=== PATIENT | male | born 1975 | race American Indian/Alaskan Native ===

== ENCOUNTER 2016-04-15 12:19 | Emergency (ER) | payer SELFPAY ==
[2016-04-15] MEDS ORDERED: Haloperidol INJ IV/IM* 5 MG/ML AMP IM ONE (12:24)
[2016-04-15] MEDS ORDERED: LORazepam INJ* 2 MG/ML 1 ML VIAL ONE (12:24)
[2016-04-15] MEDS ORDERED: Haloperidol INJ IV/IM* 5 MG/ML AMP ONE (12:24)
[2016-04-15] MEDS ORDERED: LORazepam INJ* 2 MG/ML 1 ML VIAL IM ONE ×2 (12:25→12:28)
[2016-04-15] MEDS ORDERED: NS 0.9% 1000 ML* 1,000 ML IV ONE (12:42)
[2016-04-15 13:30] LABS: Hematocrit 46 % (42-52); Hemoglobin 15.4 g/dl (14.0-18.0); Mean Corpuscular HGB Conc 34 g/dl (31-36); Mean Corpuscular Hemoglobin 30 pg (27-31); Mean Corpuscular Volume 89 fL (80-94); Red Blood Count 5.14 10^6/ul (4.0-5.4); Red Cell Distribution Width 13 % (10.5-15)
[2016-04-15 13:31] LABS: Add Diff/Slide Review? Manual Diff Added; Comments Flag Yes
[2016-04-15 13:45] LABS: ALT 19 U/L (7-52); AST 21 U/L (13-39); Albumin 4.4 g/dL (3.2-5.2); Alkaline Phosphatase 96 U/L (34-104); Anion Gap 3 mmol/L (2-11); BUN/Creatinine Ratio 12.3 (8-20); Blood Urea Nitrogen 10 mg/dL (6-24); CO2 Carbon Dioxide 25 mmol/L (22-32); Calcium 9.1 mg/dL (8.6-10.3); Chloride 109 mmol/L (101-111); EGFR African American 135.7 (>60); EGFR Non-African American 105.5 (>60); Globulin 2.6 g/dL (2-4); Glucose 105 mg/dL (70-100); Potassium 3.1 mmol/L (3.5-5.0); Sodium 137 mmol/L (133-145)
[2016-04-15] MEDS ORDERED: diPHENhydraMINE IV* 25 MG in NS 0.9% 50 ML* 50 ML IVPB ONE (13:53)
[2016-04-15] MEDS ORDERED: diPHENhydraMINE IV* 50 MG/ML 1 ml VIAL (BENADRYL) ONE (13:53)
[2016-04-15 14:00] LABS: Acetaminophen < 15 mcg/mL; Alcohol 248 mg/dL (<10); Salicylate < 2.50 mg/dL (<30)
--- NOTE | 2016-04-15 14:01 | RAD ---
HISTORY: Confusion, hallucination COMPARISONS: February 13, 2010 TECHNIQUE: Multiple contiguous axial CT scans were obtained of the head without intravenous contrast. FINDINGS: The study is limited by patient motion artifact. HEMORRHAGE/INFARCT: There is no hemorrhage or acute infarct. MASSES/SHIFT: There is no mass or shift. EXTRA-AXIAL SPACES: There are no extra-axial fluid collections. SULCI AND VENTRICLES: The sulci and ventricles are normal in size and position for the patient's stated age. CEREBRUM: There are no focal parenchymal abnormalities. BRAINSTEM: There are no focal parenchymal abnormalities. CEREBELLUM: There are no focal parenchymal abnormalities. VESSELS: The vessels are grossly normal. PARANASAL SINUSES: The paranasal sinuses are clear. ORBITS: The orbits are unremarkable. BONES AND SOFT TISSUE: No bone or soft tissue abnormalities are noted. OTHER: None IMPRESSION: NO ACUTE INTRACRANIAL PATHOLOGY.
[2016-04-15 14:09] LABS: Neutrophil % 61 % (38-83); RBC Morphology Normal (Normal); Reactive Lymph % 4 % (0-6)
[2016-04-15 14:10] LABS: TSH (Thyroid Stimulating Horm) 1.26 mcIU/mL (0.34-5.60)
[2016-04-15 14:35] LABS: White Blood Count 8.2 10^3/ul (3.5-10.8)
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
[2016-04-15] MEDS ORDERED: Potassium Chloride LIQUID* 20 MEQ PACKET PO ONE (18:39)
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
[2016-04-16] MEDS ORDERED: QUEtiapine XR TAB* 50 MG PO ONE (00:29)
[2016-04-16] MEDS ORDERED: QUEtiapine XR TAB* 50 MG ONE (00:43)
[2016-04-16 07:26] VITALS: BP 105/67
--- NOTE | 2016-05-09 04:00 | UC ---
Progress - Progress Note Progress Note: Signed out at [address] Camille Fernandez Pt continued to be stable the pt is still medically cleared. The pt is still awaiting MHE. The pt will be signed-out to Dr. Ayoub at 24:00. - Consult/PCP Time Called: 22:05 Re-Evaluation - Re-Evaluation First Eval Re-Evaluation Time: 13:45 Change: Improved - Pt given Haldol and Ativan IM initially Upon rturn from CT, pt attempting to pull IV, agitated - will give benadryl ETOH 248 - sober by number at 1500 Comment: pt d/c stable by crisis
== END 2016-04-16 14:30 | disposition home or self-care (01) ==
LOC: ED 12:19
DX: F10.129 Alcohol abuse with intoxication, unspecified (principal); F39 Unspecified mood [affective] disorder; Y90.8 Blood alcohol level of 240 mg/100 ml or more; K21.9 Gastro-esophageal reflux disease without esophagitis; F41.9 Anxiety disorder, unspecified; F32.9 Major depressive disorder, single episode, unspecified
CPT/HCPCS: 36415; 70450; 80053; 80320; 80329; 84443; 85025; 96360; 96372; 99285; A9270-GY; G0480; J1200; J1630; J2060

== ENCOUNTER 2016-07-21 06:40 | Emergency (ER) | payer BC ==
[2016-07-21 07:11] LABS: Hematocrit 45 % (42-52); Hemoglobin 15.4 g/dl (14.0-18.0); Mean Corpuscular HGB Conc 35 g/dl (31-36); Mean Corpuscular Hemoglobin 31 pg (27-31); Mean Corpuscular Volume 89 fL (80-94); Mean Platelet Volume 7 um3 (7.4-10.4); Red Blood Count 5.03 10^6/ul (4.0-5.4); Red Cell Distribution Width 14 % (10.5-15); White Blood Count 6.3 10^3/ul (3.5-10.8)
[2016-07-21] MEDS ORDERED: Metoprolol Tartrate TAB* 50 mg PO ONE (07:24)
[2016-07-21] MEDS ORDERED: LORazepam INJ* 2 MG/ML 1 ML VIAL IV PUSH ONE (07:24)
[2016-07-21] MEDS ORDERED: Thiamine IV* 100 MG, Folic Acid IV* 1 MG, Multiple Vitamin IV ADULT* 10 ML in NS 0.9% 1... IV ONE (07:25)
[2016-07-21] MEDS ORDERED: NS 0.9% 1000 ML* 1,000 ML IV ONE (07:25)
[2016-07-21 07:27] LABS: ALT 22 U/L (7-52); AST 23 U/L (13-39); Albumin 4.3 g/dL (3.2-5.2); Alkaline Phosphatase 98 U/L (34-104); Anion Gap 17 mmol/L (2-11); Blood Urea Nitrogen 12 mg/dL (6-24); CO2 Carbon Dioxide 20 mmol/L (22-32); Calcium 9.1 mg/dL (8.6-10.3); Chloride 97 mmol/L (101-111); EGFR African American 106.4 (>60); EGFR Non-African American 82.8 (>60); Globulin 3.2 g/dL (2-4); Glucose 131 mg/dL (70-100); Potassium 3.3 mmol/L (3.5-5.0); Sodium 134 mmol/L (133-145); Total Protein 7.5 g/dL (6.4-8.9)
[2016-07-21 08:07] LABS: Urine Bilirubin Negative (Negative); Urine Glucose Negative (Negative); Urine Nitrite Negative (Negative)
[2016-07-21 08:24] LABS: Benzodiazepine Urine Screen None Detected (None Detect)
[2016-07-21 08:31] LABS: Acetaminophen < 15 mcg/mL; Alcohol 100 mg/dL (<10); Salicylate < 2.50 mg/dL (<30)
[2016-07-21] MEDS ORDERED: LORazepam TAB(*) 1 MG PO ONE (08:53)
[2016-07-21] MEDS ORDERED: Potassium Chlor TAB* 20 MEQ TAB.ER PO ONE (08:53)
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
[2016-07-21 12:02] VITALS: BP 133/98
== END 2016-07-21 12:02 | disposition home or self-care (01) ==
LOC: ED 06:40
DX: R06.02 Shortness of breath (principal); Z87.891 Personal history of nicotine dependence; F10.129 Alcohol abuse with intoxication, unspecified; F41.9 Anxiety disorder, unspecified; R00.0 Tachycardia, unspecified
CPT/HCPCS: 36415; 80053; 80307; 80320; 80329; 81003; 82553; 84484; 85025; 93005; 96361; 96374; 99284; A9270-GY; G0480; J2060

== ENCOUNTER 2016-12-27 20:10 | Emergency (ER) | payer BC ==
--- NOTE | 2016-12-27 20:29 | UC ---
Respiratory Complaint HPI - HPI Summary HPI Summary: 41 YEAR OLD MALE PRESENTS WITH FEVER, CHILLS, AND SEVERE SHORTNESS OF BREATH HE HAS FAILED OUT PATIENT THERAPY. - History of Current Complaint Stated Complaint: SOB W BRONCHITIS Time Seen by Provider: 12/27/16 20:26 Hx Obtained From: Patient Onset/Duration: Gradual Onset Timing: Constant Severity Initially: Severe Severity Currently: Severe Pain Scale Used: 0-10 Numeric - 7 Character: Cough: Productive - Allergies/Home Medications Allergies/Adverse Reactions: Allergies Allergy/AdvReac Type Severity Reaction Status Date / Time No Known Allergies Allergy Verified 12/27/16 20:35 Home Medications: Home Medications Amoxicillin PO (*) [Amoxicillin 500 MG CAP*] 500 mg PO Q12H 12/27/16 [History Confirmed 12/28/16] Benzonatate CAP* [Tessalon 100 MG CAP*] 100 mg PO TID PRN 12/27/16 [History Confirmed 12/28/16] Ibuprofen TAB* [Motrin TAB* 800 MG] 800 mg PO Q6H 12/27/16 [History Confirmed ] PMH/Surg Hx/FS Hx/Imm Hx Previously Healthy: Yes Other History Of: Negative For: Anticoagulant Therapy - Surgical History Surgical History: Yes Surgery Procedure, Year, and Place: [place] [facility] [place] Family History Known Family History: Positive: Cardiac Disease, Hypertension, Diabetes, Other - Thyroid disease - mother - Social History Alcohol Use: None Alcohol Amount: has not drank since February 2011 - sober Substance Use Type: Other Substance Use Comment - Amount & Last Used: 07/23/15, TALL COFFEE MUG SIZE Smoking Status (MU): Former Smoker Have You Smoked in the Last Year: No When Did the Patient Quit Smoking/Using Tobacco: february 2011 - Immunization History Most Recent Influenza Vaccination: 2014 Most Recent Tetanus Shot: 2010 Most Recent Pneumonia Vaccination: none Review of Systems Constitutional: Negative Skin: Negative Eyes: Negative ENT: Negative Respiratory: Shortness Of Breath, Cough Cardiovascular: Negative Gastrointestinal: Negative Genitourinary: Negative Motor: Negative Neurovascular: Negative Musculoskeletal: Negative Neurological: Negative Psychological: Negative All Other Systems Reviewed And Are Negative: Yes Physical Exam Triage Information Reviewed: Yes Appearance: Ill-Appearing Vital Signs Reviewed: Yes Eye Exam: Normal ENT Exam: Normal Dental Exam: Normal Neck exam: Normal Neck: Positive: 1 Respiratory: Positive: Rhonchi, Wheezing Cardiovascular Exam: Normal Abdominal Exam: Normal Musculoskeletal Exam: Normal Neurological Exam: Normal Psychological Exam: Normal Skin Exam: Normal Respiratory Course/Dx - Differential Dx/Diagnosis Provider Diagnoses: FEVER. SOB. COUGH Discharge - Discharge Plan Condition: Stable Disposition: HOME Patient Education Materials: Dyspnea (ED), Cold Symptoms (ED) Referrals: Freddie Hernández MD [Primary Care Provider] - Additional Instructions: PATIENT SUGGESTED TO GO TO ER FOR SHORTNESS OF BREATH, FEVER, AND SEVERE COUGH.
[2016-12-27] MEDS ORDERED: predniSONE TAB* 20 MG PO ONE (20:32)
[2016-12-27] MEDS ORDERED: Albuterol 2.5 MG/3 ML NEB.SOL* (0.083%) INH ONE (20:32)
[2016-12-27 20:33] VITALS: BP 169/82
== END 2016-12-27 20:49 | disposition home or self-care (01) ==
LOC: UCEAST 20:10
DX: R50.9 Fever, unspecified (principal); Z87.891 Personal history of nicotine dependence; R06.02 Shortness of breath; R05 Cough
CPT/HCPCS: 99213; G0463; J7512

== ENCOUNTER 2016-12-27 21:07 | Inpatient (IN) | payer BC, MEDICAID ==
[2016-12-28] MEDS ORDERED: guaiFENesin/CODIEN 100MG-10MG* 5 ML UDC PO ONE (00:09)
[2016-12-28] MEDS ORDERED: Albuterol/Ipratropium NEB.SOL* Albuterol 2.5 MG/Ipratropium 0.5 MG 3 ML INH ONE (00:09)
[2016-12-28] MEDS: NS 0.9% 1000 ML* 2,000 ML IV ONE ×2 (00:22→02:00)
[2016-12-28 00:38] LABS: Hematocrit 33 % (42-52); Hemoglobin 11.2 g/dl (14.0-18.0); Mean Corpuscular HGB Conc 34 g/dl (31-36); Mean Corpuscular Hemoglobin 30 pg (27-31); Mean Corpuscular Volume 89 fL (80-94); Mean Platelet Volume 6 um3 (7.4-10.4); Red Cell Distribution Width 14 % (10.5-15); White Blood Count 14.2 10^3/ul (3.5-10.8)
[2016-12-28 00:53] LABS: Albumin 2.9 g/dL (3.2-5.2); BUN/Creatinine Ratio 10.8 (8-20); Calcium 8.5 mg/dL (8.6-10.3); EGFR African American 149.9 (>60); EGFR Non-African American 116.6 (>60); Globulin 3.9 g/dL (2-4); Potassium 3.1 mmol/L (3.5-5.0); Total Bilirubin 0.5 mg/dL (0.2-1.0); Total Protein 6.8 g/dL (6.4-8.9)
[2016-12-28] MEDS ORDERED: Azithromycin IV(*) 500 MG in NS 0.9% 250 ML* 250 ML IVPB ONE (01:28)
[2016-12-28] MEDS ORDERED: cefTRIAXone(*) 1 GM in NS 0.9% 50 ML* 50 ML IVPB ONE (01:28)
[2016-12-28] MEDS ORDERED: Magnesium Hydroxide LIQ* 30 ML UDC PO PRN (01:51)
[2016-12-28] MEDS ORDERED: Al Hydrox/Mg Hydrox/Simet LIQ* 30 ML UDC PO PRN (01:51)
[2016-12-28] MEDS ORDERED: Albuterol 2.5 MG/3 ML NEB.SOL* (0.083%) INH PRN (01:51)
[2016-12-28] MEDS ORDERED: hydrOXYzine HCL TAB* 25 MG PO PRN (01:53)
[2016-12-28] MEDS ORDERED: Potassium Chlor TAB* 20 MEQ TAB.ER PO ONE (01:55)
[2016-12-28] MEDS ORDERED: Iohexol 300* (CONTRAST) 10 ML SDV IV ONE (02:12)
[2016-12-28] MEDS: NS 0.9% 1000 ML* 1,000 ML IV SCH ×2 (04:15→17:02)
[2016-12-28] MEDS: oxyCODONE/Acetamin 5/325 MG* TAB PO PRN ×3 (04:42→13:41)
[2016-12-28 04:50] LABS: Urine Bacteria Absent (Absent)
[2016-12-28 04:52] LABS: Urine Bilirubin Negative (Negative); Urine Glucose N (Negative); Urine Nitrite N (Negative)
[2016-12-28] MEDS: Benzocaine/Menthol LOZ* 1 LOZENGE PO PRN ×3 (05:50→18:19)
[2016-12-28] MEDS: Heparin VIAL(*) 5000 UNITS/ML VIAL (FIVE THOUSAND) SUBCUT SCH ×3 (05:51→22:58)
[2016-12-28] MEDS: Acetaminop/Codeine 30 MG TAB* 1 TAB (300 MG/30 MG) PO PRN ×4 (05:55→22:58)
--- NOTE | 2016-12-28 06:41 | HP ---
CC: Dr. Hernández * HISTORY AND PHYSICAL: DATE OF ADMISSION: 12/28/16 PRIMARY CARE PHYSICIAN: Dr. Hernández CHIEF COMPLAINT: Shortness of breath and right-sided chest pain. HISTORY OF PRESENT ILLNESS: Jeremie Mariee is a 41-year-old male who was diagnosed with bronchitis a week ago and continued to take prescribed amoxicillin and presented to the hospital today complaining of worsening shortness of breath, cough productive of purulent sputum, and right-sided pleuritic pain. The patient has rather dense right middle lobe pneumonia on the x-ray and possibility of fluid in the fissure. The patient is going to be admitted to the medical floor with a diagnosis of pneumonia. PAST MEDICAL HISTORY: 1. History of bipolar disease. 2. History of alcoholism, in remission. 3. Status post ankle ORIF. ALLERGIES: No known drug allergies. MEDICATIONS: Include: 1. Lamictal 200 mg daily. 2. Seroquel XR 100 mg at bedtime. 3. Avapro on a p.r.n. basis. 4. Tessalon 100 mg t.i.d. p.r.n. 5. Amoxicillin 500 mg every 12 hours. FAMILY HISTORY: Positive for mother with history of rheumatoid arthritis and __ __ lung disease. The patient's sister has a history of thyroid disease. SOCIAL HISTORY: The patient used to abuse alcohol. Currently denies alcohol or tobacco use. He denies any drug use. 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 As his surrogate, he names his mother, Yanique Mariee. REVIEW OF SYSTEMS: Please see history of present illness. In addition to the above mentioned, the patient stated that he had been having loose bowel movements for the past couple of days and does have 2 to 3 loose bowel movements a day. He denies any abdominal pain. All the remaining 14 systems were reviewed with the patient and were otherwise negative. PHYSICAL EXAMINATION GENERAL: The patient is a very pleasant 41-year-old male who is in no acute distress. Alert, awake, and oriented x3. VITAL SIGNS: Blood pressure of 157/79, heart rate of 115 and regular, respiratory rate of 28, oxygen saturation 92% on room air, and temperature of 99.7. HEENT: Head atraumatic and normocephalic. Eyes pupils are equal, round, and reactive to light and accommodation. Oropharynx clear. Mucosa moist. NECK: Supple. No JVD. No bruits bilaterally. RESPIRATORY: Rhonchi in right mid lung, otherwise grossly clear. CARDIOVASCULAR: Regular rate and rhythm. Tachycardia. No murmur. ABDOMEN: Soft and nontender. Bowel sounds present in all 4 quadrants. EXTREMITIES: There is no edema, pulses are +2 bilaterally. No clubbing or cyanosis. SKIN: On evaluation of the skin, no ecchymotic areas or rashes noted. NEURO EVALUATION: Speech clear. Cranial nerves II through XII grossly intact. Motor strength is 5/5 bilaterally. PSYCHIATRIC EVALUATION: Pleasant, cooperative with evaluation with no evidence of anxiety or depression. DIAGNOSTIC STUDIES/LABORATORY DATA: Laboratory data and studies performed today include: White blood cell count of 14.2, hemoglobin of 11.2, hematocrit of 33, and platelets of 193. Sodium of 140, potassium 3.1, chloride 104, carbon dioxide 27, BUN 8, creatinine of 0.74. Liver function tests were normal and unremarkable apart from alkaline phosphatase elevation of 140. Brain natriuretic peptide was 117. Troponin was 0. Lactic acid 1.6. The patient's EKG showed sinus tachycardia with heart rate of 113 beats per minute with nonspecific ST changes and mild elevation in ST and septal leads, most likely due to early repolarization. Compared with an EKG from July 2016, the changes were similar. ASSESSMENT AND PLAN: 1. The patient has rather dense infiltrate in the right middle lung. He is going to be admitted with pneumonia that has failed outpatient treatment. He is tachycardic and tachypneic. He is going to continue the ceftriaxone and azithromycin started in the emergency room. Urine Streptococcus pneumoniae antigen as well as legionella antigen are going to be obtained. He is going to be treated with supportive intravenous fluids as well as Tylenol with Codeine for cough suppression since he has not been sleeping for the past 2 days due to cough. Once again, CT of chest is going to be obtained for further evaluation of the infiltrate. 2. For patient's bipolar disease, the patient is going to be continued with Lamictal and Seroquel. 3. For DVT prophylaxis, the patient is going to be placed on heparin subcutaneously. 4. The patient's code status is full and his surrogate is his mother. 5. Hypokalemia. He is going to be replaced with p.o. potassium supplementation. 6. The patient's elevation of alkaline phosphatase is probably related to current pneumonia and ongoing illness. We will repeat it in 24 hours. TIME SPENT: Approximately 55 minutes was spent on the admission of this patient , more than half that time was spent [id number] with the patient during the interview and physical exam. [id number]/[facility], [place] #: [id number] JUDITHD
--- NOTE | 2016-12-28 07:53 | RAD ---
HISTORY: Cough, shortness of breath, pneumonia COMPARISONS: February 28, 2012, CT of the chest dated December 28, 2016 VIEWS: 4: Frontal dual-energy and lateral views of the chest. FINDINGS: CARDIOMEDIASTINAL SILHOUETTE: The cardiomediastinal silhouette is normal. SVETLANA: The svetlana are normal. PLEURA: As noted on CT, there is loculated right pleural effusion. There is a density along the medial right lower hemithorax with an air fluid level corresponding to the loculated hydropneumothorax versus a pyothorax noted on CT LUNG PARENCHYMA: The lungs are clear. ABDOMEN: The upper abdomen is clear. There is no subphrenic gas. BONES AND SOFT TISSUES: No bone or soft tissue abnormalities are noted. OTHER: None. IMPRESSION: NOTED ON CT, THERE IS LOCULATED RIGHT PLEURAL EFFUSION, INCLUDING A RIGHT LOWER LUNG LOCULATED HYDROPNEUMOTHORAX VERSUS PYOTHORAX
--- NOTE | 2016-12-28 07:55 | ED ---
Naman Carranza Rebecca, scribed for Tree Givens MD on 12/28/16 at 0015 . Shortness of Breath - HPI Summary HPI Summary: Pt is a 41 y/o M referred from [facility] who presents to ED c/o SOB characterized as dyspnea at rest. Sx worsened this afternoon, stating that his Abx are not helping sx. Took Ibuprofen at 1730. Additionally c/o dizziness, diaphoresis, productive cough, subjective fever, chills and wheezing. Denies sore throat and vomiting secondary to cough. Confirms he has been able to tolerate fluids. Given a breathing treatment at [facility] which improved sx temporarily. Dx about 1 week ago of Bronchitis and started on Amoxicillin and started on Tessalon yesterday. - History of Current Complaint Chief Complaint: EDShortnessOfBreath Time Seen by Provider: 12/27/16 23:51 Hx Obtained From: Patient Onset/Duration: Still Present, Worse Since - This afternoon Dyspnea At: Rest Aggrevating Factors: Nothing Alleviating Factors: Bronchodilators - Breathing Tx at [facility] Associated Signs & Symptoms: Cough (Productive), Wheezing, Fever, Chills, Diaphoresis, Dizzy - Allergy/Home Medications Allergies/Adverse Reactions: Allergies Allergy/AdvReac Type Severity Reaction Status Date / Time No Known Allergies Allergy Verified 12/27/16 20:35 PMH/Surg Hx/FS Hx/Imm Hx Endocrine/Hematology History: Reports: Hx Anemia - IN PAST LAST SET OF LABS WERE NORMAL Denies: Hx Anticoagulant Therapy, Hx Diabetes, Hx Thyroid Disease Cardiovascular History: Denies: Hx Hypertension, Other Cardiovascular Problems/Disorders Respiratory History: Reports: Hx Sleep Apnea Denies: Hx Asthma, Hx Chronic Obstructive Pulmonary Disease (COPD) GI History: Reports: Hx Gastroesophageal Reflux Disease, Other GI Disorders - duodentitis Denies: Hx Ulcer History: Denies: Other Problems/Disorders Musculoskeletal History: Denies: Hx Arthritis, Hx Osteoporosis, Other Musculoskeletal History Sensory History: Reports: Hx Contacts or Glasses Denies: Hx Hearing Aid Opthamlomology History: Reports: Hx Contacts or Glasses Neurological History: Reports: Hx Seizures - last seizure on sunday, Other Neuro Impairments/Disorders - PREVIOUS LOW BACK INJURY Psychiatric History: Reports: Hx Anxiety - ON MEDICATION, Hx Depression - ON MEDICATION, Hx Bipolar Disorder, Hx of Violent Episodes Against Others, Hx Substance Abuse Denies: Hx Eating Disorder - Surgical History Surgery Procedure, Year, and Place: ORIF RIGHT ANKLE - 2012 [facility] [place] Hx Anesthesia Reactions: No - Immunization History Date of Tetanus Vaccine: 2010 Date of Influenza Vaccine: Fall 2015 Infectious Disease History: No Infectious Disease History: Denies: Hx Hepatitis, Hx Human Immunodeficiency Virus (HIV), History Other Infectious Disease, Traveled Outside the [place] in Last 30 Days - Family History Known Family History: Positive: Cardiac Disease, Hypertension, Diabetes, Other - Thyroid disease - mother - Social History Alcohol Use: None Alcohol Amount: has not drank since February 2011 - sober Hx Substance Use: No Substance Use Type: Reports: Other Substance Use Comment - Amount & Last Used: 07/23/15, TALL COFFEE MUG SIZE Hx Tobacco Use: No Smoking Status (MU): Former Smoker Have You Smoked in the Last Year: No Review of Systems Positive: Fever, Chills, Skin Diaphoresis Negative: Sore Throat Positive: Shortness Of Breath, Cough - productive, Other - Wheezing Negative: Vomiting Neurological: Other - Dizziness All Other Systems Reviewed And Are Negative: Yes Physical Exam - Summary Physical Exam Summary: The patient is well-nourished in no acute distress and in no acute pain. The skin is warm to touch and dry and skin color reflects adequate perfusion. HEENT: The head is normocephalic and atraumatic. The pupils are equal and reactive. The conjunctivae are clear and without drainage. Nares are patent and without drainage. Mouth reveals moist mucous membranes and the throat is erythematous but without exudate. There is post nasal drip present. The external ears are intact. The ear canals are patent and without drainage. The tympanic membranes are intact. Neck is supple with full range of motion and non-tender. There are no carotid bruits. There is no neck vein distension. Respiratory: Chest is non-tender. Lungs are clear to auscultation with diminished breath sounds on the R side. He is tachypneic. Cardiovascular: Heart is regular rate and rhythm. There is no murmur or rub auscultated. There is slight ankle edema and pulses are symmetrical and equal. Abdomen: The abdomen is soft and non-tender. There are normal bowel sounds heard in all four quadrants and there is no organomegaly palpated. Musculoskeletal: There is no back pain noted. Extremities are non-tender with full range of motion. There is good capillary refill. There is slight ankle edema and no calf tenderness elicited. Neurological: Patient is alert and oriented to person, place and time. Psychiatric: The patient has an appropriate affect and does not exhibit any anxiety or depression. Triage Information Reviewed: Yes Vital Signs On Initial Exam: Initial Vitals Temp Pulse Resp BP Pulse Ox 98.7 F 114 20 146/78 98 12/27/16 21:09 12/27/16 21:09 12/27/16 21:09 12/27/16 21:09 12/27/16 21:09 Vital Signs Reviewed: Yes - [place] Coma Scale Coma Scale Total: 15 Diagnostics - Vital Signs Vital Signs Temp Pulse Resp BP Pulse Ox 12/27/16 23:50 99.5 F 102 20 157/89 96 12/27/16 21:09 98.7 F 114 20 146/78 98 - Laboratory Lab Results: Lab Results 12/28/16 12/28/16 12/28/16 Range/Units 00:25 00:25 00:25 WBC 14.2 H (3.5-10.8) 10^3/ul RBC 3.70 L (4.0-5.4) 10^6/ul Hgb 11.2 L (14.0-18.0) g/dl Hct 33 L (42-52) % MCV 89 (80-94) fL MCH 30 (27-31) pg MCHC 34 (31-36) g/dl RDW 14 (10.5-15) % Plt Count 493 H (150-450) 10^3/ul MPV 6 L (7.4-10.4) um3 Neut % (Auto) 92.7 H (38-83) % Lymph % (Auto) 3.3 L (25-47) % [place] % (Auto) 3.6 (1-9) % Eos % (Auto) 0.2 (0-6) % Baso % (Auto) 0.2 (0-2) % Absolute Neuts (auto) 13.2 H (1.5-7.7) 10^3/ul Absolute Lymphs (auto) 0.5 L (1.0-4.8) 10^3/ul Absolute Monos (auto) 0.5 (0-0.8) 10^3/ul Absolute Eos (auto) 0 (0-0.6) 10^3/ul Absolute Basos (auto) 0 (0-0.2) 10^3/ul Absolute Nucleated RBC 0.01 10^3/ul Nucleated RBC % 0 Sodium 140 (133-145) mmol/L Potassium 3.1 L (3.5-5.0) mmol/L Chloride 104 (101-111) mmol/L Carbon Dioxide 27 (22-32) mmol/L Anion Gap 9 (2-11) mmol/L BUN 8 (6-24) mg/dL Creatinine 0.74 (0.67-1.17) mg/dL Est GFR ( Amer) 149.9 (>60) Est GFR (Non-Af Amer) 116.6 (>60) BUN/Creatinine Ratio 10.8 (8-20) Glucose 149 H (70-100) mg/dL Lactic Acid (0.5-2.0) mmol/L Calcium 8.5 L (8.6-10.3) mg/dL Total Bilirubin 0.50 (0.2-1.0) mg/dL AST 12 L (13-39) U/L ALT 12 (7-52) U/L Alkaline Phosphatase 140 H (34-104) U/L Troponin I 0.00 (<0.04) ng/mL B-Natriuretic Peptide 117 H ( - 100) pg/mL Total Protein 6.8 (6.4-8.9) g/dL Albumin 2.9 L (3.2-5.2) g/dL Globulin 3.9 (2-4) g/dL Albumin/Globulin Ratio 0.7 L (1-3) 12/28/16 Range/Units 00:25 WBC (3.5-10.8) 10^3/ul RBC (4.0-5.4) 10^6/ul Hgb (14.0-18.0) g/dl Hct (42-52) % MCV (80-94) fL MCH (27-31) pg MCHC (31-36) g/dl RDW (10.5-15) % Plt Count (150-450) 10^3/ul MPV (7.4-10.4) um3 Neut % (Auto) (38-83) % Lymph % (Auto) (25-47) % [place] % (Auto) (1-9) % Eos % (Auto) (0-6) % Baso % (Auto) (0-2) % Absolute Neuts (auto) (1.5-7.7) 10^3/ul Absolute Lymphs (auto) (1.0-4.8) 10^3/ul Absolute Monos (auto) (0-0.8) 10^3/ul Absolute Eos (auto) (0-0.6) 10^3/ul Absolute Basos (auto) (0-0.2) 10^3/ul Absolute Nucleated RBC 10^3/ul Nucleated RBC % Sodium (133-145) mmol/L Potassium (3.5-5.0) mmol/L Chloride (101-111) mmol/L Carbon Dioxide (22-32) mmol/L Anion Gap (2-11) mmol/L BUN (6-24) mg/dL Creatinine (0.67-1.17) mg/dL Est GFR ( Amer) (>60) Est GFR (Non-Af Amer) (>60) BUN/Creatinine Ratio (8-20) Glucose (70-100) mg/dL Lactic Acid 1.6 (0.5-2.0) mmol/L Calcium (8.6-10.3) mg/dL Total Bilirubin (0.2-1.0) mg/dL AST (13-39) U/L ALT (7-52) U/L Alkaline Phosphatase (34-104) U/L Troponin I (<0.04) ng/mL B-Natriuretic Peptide ( - 100) pg/mL Total Protein (6.4-8.9) g/dL Albumin (3.2-5.2) g/dL Globulin (2-4) g/dL Albumin/Globulin Ratio (1-3) Result Diagrams: 12/28/16 00:25 12/28/16 00:25 Lab Statement: Any lab studies that have been ordered have been reviewed, and results considered in the medical decision making process. - Radiology CXR Xray Interpretation: Positive (See Comments) - Left lower lobe infiltrate. Radiology Interpretation Completed By: ED Physician - EKG 0059 Cardiac Rate: Tachycardia - 113 bpm EKG Rhythm: Sinus Tachycardia EKG Interpretation: LBBB, prolonged QT interval, LAD, no STEMI Re-Evaluation - Re-Evaluation First Eval Re-Evaluation Time: 01:27 Change: Unchanged Comment: Discussed CXR results with the pt Course/Dx - Course Assessment/Plan: Pt is a 41 y/o M referred from [facility] who presents to ED c/o SOB characterized as dyspnea at rest. Sx worsened this afternoon, stating that his Abx are not helping sx. Took Ibuprofen at 1730. Additionally c/o dizziness, diaphoresis, productive cough, subjective fever, chills and wheezing. Denies sore throat and vomiting secondary to cough. Confirms he has been able to tolerate fluids. Given a breathing treatment at [facility] which improved sx temporarily. Dx about 1 week ago of Bronchitis and started on Amoxicillin and started on Tessalon yesterday. CXR reveals left lower lobe infiltrate so he will be started on IV Abx. EKG is sinus tachycardia with LBBB, prolonged QT interval, LAD and no STEMI. Troponin of 0.00, WBC of 14.2 H. In the ED course, pt received Duoneb Tx, Rocephin, Zithromax, Robitussin and fluids. Discussed care of pt with Dr. Laura Garcia who accepts pt for admission. Pt will be admitted with Dx of left lower lobe PNA and outpatient treatment failure. He understands and agrees. Elevated BP noted and advised to f/u with PCP. 45 minutes of critical care time. - Diagnoses Differential Diagnosis/HQI/PQRI: Positive: Bronchitis, [place], Pneumonia Provider Diagnoses: Left lower lobe pneumonia, Failure of outpatient treatment - Physician Notifications Discussed Care of Patient With: Laura Garcia Time Discussed With Above Provider: 01:35 Instructed by Provider To: Other - Accepts pt for admission. - Critical Care Time Critical Care Time: 30-74 min - 45 minutes Discharge - Discharge Plan Condition: Stable Disposition: ADMITTED TO [facility] documentation as recorded by the Naman carr Rebecca accurately reflects the service I personally performed and the decisions made by , Tree Givens MD.
--- NOTE | 2016-12-28 08:14 | RAD ---
INDICATION: Right-sided pneumonia. Rule out abscess. COMPARISON: Chest x-ray same date TECHNIQUE: Axial source images were obtained from the thoracic inlet to the hemidiaphragms. Coronal and sagittal reconstructed images were acquired. 80 mL of Omnipaque 300 was utilized. The visualized neck to include the thyroid appear normal. Chest wall: There are no acute abnormalities of the bony thorax or chest wall. There is no supraclavicular, infraclavicular, or axillary lymphadenopathy. Lungs : There is localized fluid collection with air-fluid level in the medial right lung base measuring 8.2 x 4.3 cm. This is associated with adjacent parenchymal change. This is likely an infected collection perhaps representing a lung abscess. There is a 2 cm opacity in the left lung base. This represents a nonspecific finding but requires follow-up. This best seen on axial reference image 30/61 Cardiomediastinal structures: The heart is normal in size. There is no pericardial effusion. There is no evidence of aortic aneurysm or dissection. The pulmonary vessels appear normal. There is no mediastinal or hilar adenopathy. The esophagus appears normal. Pleura : There is partially loculated pleural fluid in the major fissure on the right and in the periphery of the right lung apex and posterior lateral right lung base. Other: There are no acute or significant CT findings of the visualized upper abdomen. IMPRESSION: SUSPECT RIGHT-SIDED LUNG ABSCESS. LOCULATED PLEURAL FLUID COLLECTIONS. NODULAR OPACITY LEFT MIDLUNG FIELD. SUGGEST FOLLOW-UP
[2016-12-28] MEDS: Docusate CAP* 100 MG PO SCH ×2 (09:11→21:17)
[2016-12-28] MEDS: lamoTRIgine TAB(*) 100 MG PO SCH (09:13)
[2016-12-28] MEDS: Benzonatate CAP* 100 MG PO PRN ×4 (09:22→22:58)
[2016-12-28] MEDS: Morphine INJ* 4 MG/ML 1 ML CARPUJECT IV PRN ×2 (14:57→19:39)
[2016-12-28] MEDS: GuaiFENesin DM* 5 ML UDC PO PRN ×2 (15:44→19:39)
[2016-12-28] MEDS: Meropenem 1 GM PREMIX(*) 1 GM/50 ML BAG IV SCH (19:38)
[2016-12-28] MEDS: Acetaminophen TAB* 325 MG PO PRN (19:39)
[2016-12-28] MEDS: cefTRIAXone VIAL(*) 1,000 MG in NS 0.9% 50 ML* 50 ML IVPB SCH (20:31)
[2016-12-28] MEDS: Albuterol 2.5 MG/3 ML NEB.SOL* (0.083%) INH PRN (20:47)
[2016-12-28] MEDS: metroNIDAZOLE IV 500 MG/100ML* 500 MG/100 ML BAG IVPB SCH (21:02)
--- NOTE | 2016-12-28 21:44 | RAD ---
INDICATION: Tachypnea COMPARISON: Similar chest x-ray dated December 28, 2016 acquired at 0052 hours TECHNIQUE: Single AP view of the chest was obtained at 2011 hours FINDINGS: Image quality is limited by the inherent inferiority of a portable chest x-ray. The lung volumes appear small likely due to incomplete inspiratory effort. Similar the prior chest x-ray there is mild cardiomegaly. There is persistent density overlying the right lung base. More patchy density as well as linear density is seen overlying the left lower lobe. There is a mild degree of bilateral costophrenic angle blunting. IMPRESSION: MILD CARDIOMEGALY WITH PATCHY DENSITIES, THE LARGEST AT THE RIGHT LOWER LUNG SIMILAR IN APPEARANCE TO THE CHEST X-RAY ACQUIRED AT 0052 HOURS. FINDINGS COULD BE CONSISTENT WITH PULMONARY EDEMA OR MULTIFOCAL PNEUMONIA.
[2016-12-28] MEDS: QUEtiapine XR TAB* 50 MG PO SCH (21:59)
--- NOTE | 2016-12-28 22:24 | PN ---
Hospitalist Progress Note Approached by RN that patient had increased work of breathing and tachypneic to 30s. Pt felt unwell. Recent changes in antibiotics to include meropenem and flagyl. Pt was transferred to the ICU for hi-flow nasal canula(vapotherm). Stat CXR with continued multifocal pna/abscess. Telemetry ordered
[2016-12-29] MEDS ORDERED: cefTRIAXone VIAL(*) 1,000 MG in NS 0.9% 50 ML* 50 ML IVPB SCH (02:00)
[2016-12-29] MEDS ORDERED: Azithromycin IV(*) 500 MG in NS 0.9% 250 ML* 250 ML IVPB SCH (02:00)
[2016-12-29] MEDS: GuaiFENesin DM* 5 ML UDC PO PRN ×5 (02:48→22:34)
[2016-12-29] MEDS: Meropenem 1 GM PREMIX(*) 1 GM/50 ML BAG IV SCH (04:04)
[2016-12-29] MEDS: NS 0.9% 1000 ML* 1,000 ML IV SCH (04:04)
[2016-12-29] MEDS: Morphine INJ* 4 MG/ML 1 ML CARPUJECT IV PRN ×6 (04:16→21:27)
[2016-12-29] MEDS: Heparin VIAL(*) 5000 UNITS/ML VIAL (FIVE THOUSAND) SUBCUT SCH ×3 (06:31→21:28)
[2016-12-29] MEDS: Acetaminophen TAB* 325 MG PO PRN ×2 (06:32→19:45)
[2016-12-29] MEDS: Benzonatate CAP* 100 MG PO PRN ×3 (06:32→19:45)
[2016-12-29 06:34] LABS: Hematocrit 28 % (42-52); Hemoglobin 9.4 g/dl (14.0-18.0); Mean Corpuscular HGB Conc 34 g/dl (31-36); Mean Corpuscular Hemoglobin 31 pg (27-31); Mean Corpuscular Volume 89 fL (80-94); Mean Platelet Volume 6 um3 (7.4-10.4); Red Blood Count 3.09 10^6/ul (4.0-5.4); Red Cell Distribution Width 14 % (10.5-15); White Blood Count 11.9 10^3/ul (3.5-10.8)
[2016-12-29 06:48] LABS: BUN/Creatinine Ratio 10.4 (8-20); Calcium 7.6 mg/dL (8.6-10.3); EGFR African American 168.1 (>60); EGFR Non-African American 130.7 (>60); Potassium 3.3 mmol/L (3.5-5.0)
[2016-12-29] MEDS: metroNIDAZOLE IV 500 MG/100ML* 500 MG/100 ML BAG IVPB SCH ×2 (08:25→21:36)
[2016-12-29] MEDS: Benzocaine/Menthol LOZ* 1 LOZENGE PO PRN ×4 (08:35→21:28)
[2016-12-29] MEDS: lamoTRIgine TAB(*) 100 MG PO SCH (09:26)
[2016-12-29] MEDS: Docusate CAP* 100 MG PO SCH ×2 (09:40→19:46)
--- NOTE | 2016-12-29 09:44 | CONS ---
PULMONARY CONSULTATION REPORT: DATE OF CONSULTATION: 12/29/16 CONSULTATION REQUESTED BY: Dr. Shakir Shepherd. REASON FOR CONSULTATION: Evaluation of lung abscess. HISTORY OF PRESENT ILLNESS: The patient is a 41-year-old obese male with history of bipolar disorder, prior alcoholism, currently in remission, who was admitted for evaluation of shortness of breath and right-sided chest pain. The patient reported that symptoms started on the 4th of this month with cough initially. Cough was dry and later became productive of significant amounts of purulent sputum. The patient was seen at [facility] and was given amoxicillin. The patient had diarrhea since he started taking amoxicillin. 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 The patient denied any travel recently. The patient's symptoms progressively became worse. The patient also continued to have right-sided pleuritic chest pain and worsening shortness of breath and decided to come into the emergency room. The patient had chest x- ray and CT scan in the emergency room. I have personally reviewed chest x- ray and CT scan of the chest. The patient noted to have loculated right-sided pleural effusion and right lung base infiltrate on x-ray. CT scan of the chest revealed multiloculated pleural fluid on the right lung with fluid in the major fissure and in the periphery of right lung apex and medially and posteriorly in the lung base. The patient also noted to have adjacent parenchymal changes, concerning for infected collection and possibly abscess. The patient also with nodular opacity in the left mid lung. The patient was initially admitted to regular medical floor and was started on antibiotics for lung abscess and pneumonia. The patient worsened with increasing tachypnea and tachycardia and was transferred to ICU for close monitoring. The patient currently is on high- flow O2. The patient is also febrile and had fevers since last night. The patient appeared tachypneic this morning. Has been complaining of pleuritic chest pain. The patient is on 40 L high-flow and 60% FiO2. PAST MEDICAL HISTORY: 1. Bipolar disease. 2. Alcoholism, in remission. 3. Ankle ORIF. MEDICATIONS: 1. Lamictal 200 mg daily. 2. Seroquel 100 mg at bedtime. 3. Avapro p.r.n. 4. Tessalon 100 mg t.i.d. 5. Amoxicillin 500 mg every 12 hours. ALLERGIES: No known drug allergies. FAMILY HISTORY: Mother with rheumatoid arthritis and sister with thyroid disease. SOCIAL HISTORY: Has prior alcohol abuse. Has been abstinent. Denies tobacco abuse. No history of drug abuse. 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 REVIEW OF SYSTEMS: The patient also reported extreme fatigue. The patient denied any recent travel outside the or any sick contacts. The patient had loose bowel movements after amoxicillin, which has resolved. The patient denies headaches, neck stiffness, rash, joint pains. All other systems are reviewed and negative. PHYSICAL EXAM: The patient is in mild distress secondary to pain. Vital Signs : Temperature 100.9, heart rate 108 beats per minute, respiratory rate 30s, O2 sat 100%, blood pressure 165/96. HEENT: Pupils equal, reactive to light. Mucous membranes moist. Neck: Supple. No JVD. Respiratory: Rhonchi in the mid lung and decreased breath sounds in the lung base. Cardiovascular: S1, S2 present, regular. No murmurs, gallops, or rubs. Tachycardic. Abdomen: Soft, nontender, nondistended. Bowel sounds present. Extremities: Normal range of motion. No cyanosis or clubbing. Skin: No rash or ecchymosis. Neurologic: No focal deficit. DIAGNOSTIC STUDIES/LAB DATA: WBC count 11.9, hemoglobin 9.4, hematocrit 28, platelet count 516. Sodium 137, potassium 3.3, chloride 103, bicarb 29, BUN 7, creatinine 0.67, lactate 1.6. LFTs slightly elevated. Alk phos at 140. Troponins within normal limits. Chest x-ray and CT as described above in HPI. IMPRESSION/RECOMMENDATIONS: 41-year-old male with no significant past medical history other than bipolar disorder and prior history of alcohol abuse, currently in remission, admitted with worsening shortness of breath, pleuritic chest pain, cough, found to be having multiloculated pleural effusion on the right lung along with possible lung abscess. The patient with signs of sepsis, not in septic shock. The patient with multiloculated right-sided effusion. More medial collection appears to be the biggest pocket and possibly even pyogenic. Will contact Interventional Radiology regarding feasibility of ultrasound-guided drainage. Will also contact Thoracic Surgery for possible VATS if not drainable by IR. The patient is currently on broad spectrum antibiotics, would need to cover for anaerobes, gram positives, gram negatives. No risk for MRSA. ID to consulted regarding antibiotic choice. He will need longer duration of antibiotics. Will continue with current antibiotics until that time. The patient appears to be very sick with sepsis and hypoxemia at this time. He is also in resp distress, however doing well on high flow. Will continue to monitor in ICU for now I have discussed management options with patient and possible transfer to facility with thoracic surgery, if this could not be achieved up here. Discussed with Dr. Shakir Shepherd and Dr Wilfred Juarez. [id number]/[facility] #: [id number] [facility] HOSPITALIssac
[2016-12-29] MEDS ORDERED: HYDROmorphone INJ* 1 MG/ML CARPUJECT SYRINGE ONE (10:50)
[2016-12-29] MEDS: Albuterol 2.5 MG/3 ML NEB.SOL* (0.083%) INH PRN ×2 (11:20→16:32)
[2016-12-29] MEDS ORDERED: fentaNYL* 50 MCG/ML 2 ML VIAL (100 MCG VIAL) ONE (13:48)
--- NOTE | 2016-12-29 14:02 | RAD ---
INDICATION: Loculated fluid collection COMPARISON: CT of the chest dated December 28, 2016 TECHNIQUE: Real time ultrasound images of the right medial pleural space were acquired with jon scale and Doppler color flow imaging. FINDINGS: Corresponding to recent CT imaging, there is an avascular heterogeneous fluid collection along the medial margin of the right hemithorax abutting the spine. Most likely this is a pleural collection as it appears to be continuous with the more normal pleura posteriorly. IMPRESSION: Heterogeneous and avascular collection along the medial margin of the right hemithorax most likely representing a loculated pleural collection or potentially a lung abscess.
--- NOTE | 2016-12-29 16:13 | RAD ---
CPT II Codes: 6100F INDICATION: Loculated pleural fluid collection COMPARISON: CT of the chest dated December 28, 2016 ANESTHESIA: 1% lidocaine injected locally. The patient received intravenous fentanyl. Cardiopulmonary status was monitored by Dr. Juarez and the IR nurse. PROCEDURE NOTE: The benefits and risks of procedure explained to the patient and the patient signed informed consent. Multiple images of the medial right pleural space were obtained. The fluid collection in question was identified and a percutaneous tract was determined. A time out was performed before beginning the procedure. The patient was prepped and draped in the usual sterile fashion. The skin and tissue overlying the fluid collection were anesthetized with 1% lidocaine. Percutaneously, an 18-gauge needle was directed into the space and purulent fluid was aspirated. Approximately 20 mL of purulent fluid was aspirated and sent to the laboratory for analysis. The post procedure ultrasound demonstrates persistent extrapleural fluid but no new hematoma or pneumothorax. The patient tolerated procedure well without incident. IMPRESSION: Uncomplicated ultrasound-guided aspiration of the medial right loculated pleural fluid collection. Approximately 20 mL of purulent fluid was aspirated and sent to the laboratory.
[2016-12-29 17:44] LABS: Body Fluid Total Cells Counted 100
[2016-12-29 17:45] LABS: Body Fluid Total Cells Counted 100
[2016-12-29 17:46] LABS: Body Fluid WBC 803265 /mcL
[2016-12-29 17:47] LABS: Body Fluid Appearance Cloudy; Body Fluid WBC 849236 /mcL
--- NOTE | 2016-12-29 17:47 | CONS ---
CONSULTATION REPORT: DATE OF CONSULT: 12/29/16 REQUESTING PHYSICIAN: Dr. Shepherd. CONSULTING SERVICE: Infectious Disease. REASON FOR CONSULTATION: Lung abscess and loculated pleural effusion. IMPRESSION: 1. Ten days of progressive respiratory illness. CT scan done yesterday shows right medial lung bas e 8 x 4 cm lung abscess and loculated pleural collections on the right. Differential diagnosis incl udes oral kim-like strep, less likely staph, oral anaerobes are consideration, as are slightly les s typical organisms including nocardia. Atypicals unlikely. TB unlikely with negative QuantiFERON skin test over the last couple of years. There is also no apical involvement. No stigmata of prior granulomatous infection in the lungs either. 2. Bipolar disorder. RECOMMENDATIONS: Ceftriaxone and Flagyl. We will stop meropenem and azithromycin. He is being eval uated for drainage of the pleural collections, which will be francisco to his rapid improvement. We discu ssed that he will likely need a long course of IV antibiotics as well. His sputum and blood culture s are pending as well. HISTORY OF PRESENT ILLNESS: A 41-year-old man who works at [employer], admitted with c ough and chest pain. About 10 days ago he developed what he felt was a cold, had some cough, was se en at the [facility], prescribed amoxicillin for bronchitis, which he had been ta wiliam, but had progression of cough, shortness of breath, runny nose, decreased appetite, was seen at [facility] and then transferred to the ER on 12/27/16. CT scan was done, findings as above. Bette bejarano is started on antibiotics. His white count was 14,000 on admission, down to 12,000 today. He has had continuing fevers, 38.3 this morning, none since then. He has had cough off and on, which is p roductive of yellow sputum, no blood. He has right-sided chest pain, which had been better today, worse again after another coughing fit. He had a negative QuantiFERON test on last year for work an d a negative tuberculin skin test this year for work. He has no known TB contacts. He has never had infection requiring hospitalization. He has HIV testing done every 6 months, the l ast was in October, which was negative. PAST MEDICAL HISTORY: 1. History of bipolar disorder. 2. History of alcohol abuse. 3. Status post open reduction and internal fixation of the ankle. MEDICATIONS: 1. Tylenol with Codeine. 2. Albuterol inhaler. 3. Docusate. 4. Guaifenesin. 5. Heparin subcutaneous injection. 6. Ceftriaxone 1 g daily. 7. Flagyl 500 mg every 12 hours. 8. Percocet. ALLERGIES: No known drug allergies. FAMILY HISTORY: No tuberculosis. Mother with rheumatoid arthritis. Sister with thyroid disease. SOCIAL HISTORY: He lives in [place], works at [employer]. 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 He was born in [place]. He is . REVIEW OF SYSTEMS: All negative on 14-point review of systems, except as noted above. PHYSICAL EXAM: Vital Signs: Temperature 38, heart rate 100, respiratory rate 20, blood pressure 15 5/96, oxygen saturation 93%, FiO2 of 40%. In general, he is awake, not in distress. Neurologic: H e is oriented x3. Follows all commands. Moves all his extremities. HEENT: There is no conjunctiva l hemorrhage. Oropharynx without lesions. Neck: Supple, without nuchal rigidity. Lymph Nodes: The re is no cervical, supraclavicular, inguinal, axillary, or epitrochlear lymphadenopathy. Heart: Re gular and tachycardic, without murmurs. Lungs: Decreased breath sounds at the right greater than le ft base. There is no wheeze or rales. Abdomen: Soft, nontender, and nondistended. There are yecenia l sounds present. Skin: There is no rashes or splinter hemorrhages. Musculoskeletal: There is no spine tenderness to palpation or joint synovitis. DIAGNOSTIC STUDIES/LAB DATA: White blood cell count 12, hemoglobin 9, platelets 516. Creatinine is 0.7. Urinalysis is negative. Please see impressions and recommendations outlined above, which I have discussed with Dr. Shepherd. Thank you for asking me to see Mr. Mariee in consultation. [id number]/[facility] #: [id number]
[2016-12-29 17:48] LABS: Body Fluid Appearance Cloudy
--- NOTE | 2016-12-29 18:16 | PN ---
Subjective Date of Service: 12/29/16 Interval History: . Events overnight noted; moved to ICU for respiratory support. Multiple consults today: ID, Pulmonary, Surgery and Interventional Radiology All inputs appreciated. Ultimately, patient went to IR for aspiration of pleural effusion, thought to be loculated and/or exudative. Purulent content removed (20 cc) by report and sent for analysis. Patient remains short of breath Antibiotics ongoing with anaerobic coverage added last night. Vapotherm to provide some positive pressure ventilation. Will re-assess in AM and determine next clinical steps. . Family History: Unchanged from Admission Social History: Unchanged from Admission Past Medical History: Unchanged from Admission Objective Active Medications: . Acetaminophen (Tylenol Tab*) 650 mg PO Q4H PRN PRN Reason: FEVER/PAIN Last Admin: 12/29/16 06:32 Dose: 650 mg Acetaminophen/Codeine Phosphate (Tylenol/Codeine 30 Mg Tab*) 1 tab PO Q4H PRN PRN Reason: COUGH Last Admin: 12/28/16 22:58 Dose: 1 tab Al Hydrox/Mg Hydrox/Simethicone (Maalox Plus*) 30 ml PO Q6H PRN PRN Reason: INDIGESTION Albuterol (Ventolin 2.5 Mg/3 Ml Neb.Magdalena*) 2.5 mg INH Q2H PRN PRN Reason: sob/wheezing Last Admin: 12/29/16 16:32 Dose: 2.5 mg Benzonatate (Tessalon Cap*) 100 mg PO TID PRN PRN Reason: coughing Last Admin: 12/29/16 15:34 Dose: 100 mg Docusate Sodium (Colace Cap*) 100 mg PO BID [facility] Last Admin: 12/29/16 09:40 Dose: Not Given Guaifenesin/Dextromethorphan (Robitussin Dm*) 10 ml PO Q4H PRN PRN Reason: COUGH Last Admin: 12/29/16 12:45 Dose: 10 ml Heparin Sodium (Porcine) (Heparin Vial(*)) 5,000 units SUBCUT Q8HR [facility] Last Admin: 12/29/16 15:34 Dose: 5,000 units Sodium Chloride (Ns 0.9% 1000 Ml*) 1,000 mls @ 125 mls/hr IV PER RATE [facility] Last Admin: 12/29/16 04:04 Dose: 125 mls/hr Ceftriaxone Sodium 1,000 mg/ (Sodium Chloride) 50 mls @ 200 mls/hr IVPB Q24H [facility] Last Admin: 12/28/16 20:31 Dose: 200 mls/hr Metronidazole/Sodium Chloride (Flagyl 500 Mg Ivpb*) 500 mg in 100 mls @ 100 mls /hr IVPB Q12H [facility] Last Admin: 12/29/16 08:25 Dose: 100 mls/hr Lamotrigine (Lamictal Tab(*)) 200 mg PO DAILY [facility] Last Admin: 12/29/16 09:26 Dose: 200 mg Magnesium Hydroxide (Milk Of Magnesia Liq*) 30 ml PO Q4H PRN PRN Reason: CONSTIPATION Morphine Sulfate (Morphine Inj (Syringe)*) 4 mg IV Q4H PRN PRN Reason: PAIN Last Admin: 12/29/16 17:19 Dose: 4 mg Oxycodone/Acetaminophen (Percocet 5/325 Tab*) 1 tab PO Q4H PRN PRN Reason: Pain Last Admin: 12/28/16 13:41 Dose: 1 tab Quetiapine Fumarate (Seroquel Xr Tab*) 100 mg PO BEDTIME [facility] Last Admin: 12/28/16 21:59 Dose: Not Given Throat Lozenges (Chloraseptic Nicholas*) 1 nicholas PO Q6H PRN PRN Reason: SORE THROAT Last Admin: 12/29/16 15:39 Dose: 1 nicholas Vital Signs 12/29/16 12/29/16 12/29/16 07:01 08:00 08:22 Temperature 100.9 F Pulse Rate 104 Respiratory 39 27 Rate Blood Pressure (mmHg) O2 Sat by Pulse 100 Oximetry 12/29/16 12/29/16 12/29/16 10:51 11:23 12:46 Temperature Pulse Rate 114 Respiratory 26 22 34 Rate Blood Pressure (mmHg) O2 Sat by Pulse 93 Oximetry 12/29/16 12/29/16 16:34 17:19 Temperature Pulse Rate 100 Respiratory 34 32 Rate Blood Pressure (mmHg) O2 Sat by Pulse 98 Oximetry Oxygen Devices in Use Now: High Flow Nasal Cannula Appearance: mid aged, breathing more comfortably than earlier. Eyes: No Scleral Icterus Ears/Nose/Mouth/Throat: Clear Oropharnyx Neck: Trachea Midline Respiratory: - - R rhonchorous sounds throughout Cardiovascular: RRR - a bit tachycardic. Abdominal: No Hepatosplenomegaly Lymphatic: No Cervical Adenopathy Extremities: No Edema Skin: No Rash or Ulcers Neurological: Alert and Oriented x 3 Lines/Tubes/Other Access: Clean, Dry and Intact Peripheral IV Nutrition: Taking PO's Result Diagrams: 12/30/16 08:43 12/30/16 08:43 Additional Lab and Data: . Microbiology and Other Data: Microbiology 12/29/16 14:30 Gram Stain - Final Pleural Fluid 12/29/16 14:30 Gram Stain - Final Pleural Fluid 12/28/16 20:20 Gram Stain - Final Sputum Expectorated 12/28/16 21:45 Nasal Screen MRSA (PCR)(YASSINE) - Final Nasal Mrsa Negative 12/28/16 04:30 Legionella Urinary Antigen - Final Urine Negative Legionella Streptococcus pneumoniae Ag Screen - Final Negative S. pneumo Antigen Assess/Plan/Problems-Billing . Assessment: 41 yo man with lung abscess and loculated pleural effusion. s/p IR drainage for culture and gram stain. Patient stable from a respiratory standpoint. Denies pain; ongoing cough noted. - Patient Problems (1) Abscess, lung/mediastinum Current Visit: Yes Status: Acute Priority: High Code(s): J85.2 - ABSCESS OF LUNG WITHOUT PNEUMONIA; J85.3 - ABSCESS OF MEDIASTINUM Comment: - Ceftriaxone - Flagyl - Azithromycin (dc'd) - Morphine for chest pain / tachypnea - high flow nasal canula; keep sats > 90% - watch for fatiguing; full code. (2) Bipolar disease, chronic Current Visit: Yes Status: Chronic Priority: Medium Code(s): F31.9 - BIPOLAR DISORDER, UNSPECIFIED Comment: - continue current outpatient medication regimen (3) Alcoholic liver disease Current Visit: No Status: Chronic Code(s): K70.9 - ALCOHOLIC LIVER DISEASE, UNSPECIFIED Comment: - history of...
--- NOTE | 2016-12-29 19:16 | CONS ---
CC: Sandor Hernández MD; Dr. Boyce; Dr. Carbajal CONSULTATION REPORT/PROCEDURE REPORT: DATE OF CONSULT: 12/29/16 HISTORY OF PRESENT ILLNESS: I was contacted to evaluate Mr. Mariee for possible chest tube placement a nd possible thoracic surgery as covering for my partner for Mr. Mariee, a 41-year-old gentleman, who pr esented to [facility] yesterday with complaints of shortness of breath and right-sided ch est pain, was noted to have elevated white blood cell count and a possible lung abscess. He was adm itted, transferred to the ICU, treated on antibiotics for pneumonia. 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 Since admission, the patient has undergone a consultation with Pulmonary, who had impression of the patient with multiloculated pleural effusion and possible lung abscess with concern of possible pyog enic collection, recommending ultrasound- guided drainage. The patient did undergo needle aspiration of approximately 20 cc of foul smelling purulent drainage in the IR suite earlier today. The patient's chest CT was reviewed and shows a posterocentrally located collection with air fluid l evel that is read as a possible lung abscess along with loculated pleural effusions elsewhere, was d ictated as a "suspect right-sided lung abscess." Review of his images does suggest that it is pleura and may indeed be additional pleural fluid with air fluid levels. No bronchograms are noted . There is collapse of adjacent parenchyma. There is fluid in the fissure and small fluid collecti on more superiorly. PAST MEDICAL HISTORY: Alcohol use, bipolar disorder. MEDICATIONS: The patient's medications are currently; 1. Flagyl. 2. Ceftriaxone. REVIEW OF SYSTEMS: The patient does describe no fevers, does describe right-sided pain with pain on inspiration. No cerebrovascular disease. Loose bowel movements recently, although the patient had been started on amoxicillin. No previous similar symptoms. PHYSICAL EXAM: He has temperature of 100.9, heart rate in the 110s, breathing 22 to 30s with an O2 sat of 98%, blood pressure 155/96. He is alert in mild distress, feels somewhat better than yesterd ay. Lungs with coarse sounds at the right side throughout. The patient is using accessory muscles and is currently getting breathing treatment. DIAGNOSTIC STUDIES/LAB DATA: Labs reviewed, show some metabolic derangements in the metabolic panel along with albumin of 2.9, elevated alk phos, H and H has dropped from 11/33 to 9.4/28 with a white blood cell count of 11.9 with initially left shift with white count of 14. The patient's microbiol ogy shows sputum with Gram stain, negative coccobacilli, and gram-positive cocci and bacilli, which somewhat matches his pleural fluid Gram stain. These cultures are pending. The patient's blood cul tures show no growth in [address] scan is reviewed and described as above. IMPRESSION: A 41-year-old gentleman with pneumonia and parapneumonic effusions with purulent draina ge on aspiration today of a pleural fluid collection suggestive of an empyema. Review of the CT sca n suggested maybe what is being a lung abscess is also part of this pleural fluid collection. This may represent a lung abscess with adjacent pleural infectious entities, but I do feel that this is p ossibly all pleural based. For this reason, I would recommend the patient undergo thoracic surgery evaluation. He will need antibiotics and supportive care, but I do not feel that this would benefit from a chest tube drainage given the loculated nature of this and inability to get into the areas. We can follow the cultures and treat with the appropriate antibiotics, but as we do not have thorac ic coverage today or over the weekend, I feel it is beneficial we strongly consider Mr. Mariee for a tr ansfer to a tertiary unit with Thoracic Surgery. This is not exactly urgent with the cultures pendi ng and the patient on antibiotics with respiratory care, but it is for concern moving forward. I wi ll discuss this with the hospitalist service. [id number]/[facility] #: [id number]
[2016-12-29] MEDS: cefTRIAXone VIAL(*) 1,000 MG in NS 0.9% 50 ML* 50 ML IVPB SCH (19:48)
[2016-12-29] MEDS: QUEtiapine XR TAB* 50 MG PO SCH (21:37)
[2016-12-30] MEDS: Morphine INJ* 4 MG/ML 1 ML CARPUJECT IV PRN ×6 (01:33→23:00)
[2016-12-30] MEDS: GuaiFENesin DM* 5 ML UDC PO PRN ×6 (02:27→23:40)
[2016-12-30] MEDS: Albuterol 2.5 MG/3 ML NEB.SOL* (0.083%) INH PRN ×2 (03:21→20:54)
[2016-12-30] MEDS: Benzocaine/Menthol LOZ* 1 LOZENGE PO PRN ×4 (03:28→19:04)
[2016-12-30] MEDS: Benzonatate CAP* 100 MG PO PRN ×4 (04:27→23:11)
[2016-12-30] MEDS: NS 0.9% 1000 ML* 1,000 ML IV SCH ×3 (05:10→23:30)
[2016-12-30] MEDS: Heparin VIAL(*) 5000 UNITS/ML VIAL (FIVE THOUSAND) SUBCUT SCH ×3 (05:17→20:24)
[2016-12-30] MEDS: Acetaminop/Codeine 30 MG TAB* 1 TAB (300 MG/30 MG) PO PRN ×3 (06:25→19:47)
[2016-12-30] MEDS: Ketorolac INJ* 30 MG/ML 1 ML VIAL IV PUSH PRN ×2 (08:01→16:53)
[2016-12-30] MEDS: metroNIDAZOLE IV 500 MG/100ML* 500 MG/100 ML BAG IVPB SCH ×2 (08:06→20:24)
[2016-12-30 08:50] LABS: Hematocrit 29 % (42-52); Hemoglobin 9.9 g/dl (14.0-18.0); Mean Corpuscular HGB Conc 34 g/dl (31-36); Mean Corpuscular Hemoglobin 31 pg (27-31); Mean Corpuscular Volume 89 fL (80-94); Mean Platelet Volume 6 um3 (7.4-10.4); Red Blood Count 3.22 10^6/ul (4.0-5.4); Red Cell Distribution Width 14 % (10.5-15); White Blood Count 10.2 10^3/ul (3.5-10.8)
[2016-12-30] MEDS: Docusate CAP* 100 MG PO SCH ×2 (09:16→20:24)
[2016-12-30] MEDS: lamoTRIgine TAB(*) 100 MG PO SCH (09:16)
[2016-12-30 09:28] LABS: Albumin 2.5 g/dL (3.2-5.2); BUN/Creatinine Ratio 16.4 (8-20); Calcium 7.4 mg/dL (8.6-10.3); EGFR African American 211.1 (>60); EGFR Non-African American 164.2 (>60); Globulin 2.9 g/dL (2-4); Potassium 3.5 mmol/L (3.5-5.0); Total Bilirubin 0.5 mg/dL (0.2-1.0); Total Protein 5.4 g/dL (6.4-8.9)
--- NOTE | 2016-12-30 11:15 | PN ---
Progress Note - Progress Note Date of Service: 12/30/16 SOAP: Subjective: Patient seen at 1000 this morning He feels about the same Still with some shortness of breath Objective: Temp Pulse Resp BP Pulse Ox 99.2 F 92 25 114/81 98 12/30/16 08:00 12/30/16 09:00 12/30/16 10:03 12/30/16 08:00 12/30/16 09:00 Intake & Output 12/28/16 12/29/16 12/30/16 12/31/16 06:59 06:59 06:59 06:59 Intake Total 3034 9888 2847 Output Total 400 1200 Balance 2634 9888 1647 Weight 217 lb 8 oz 226 lb 10.163 oz 221 lb 1.978 oz Intake: IV Fluids 2319 1100 1167 NS (0.9%) 269 1100 1167 IVPB 275 298 50 ABX - AZITHROMYCIN 275 ABX - CEFTRIAXONE 50 NS (0.9%) 298 Oral 440 8490 1630 Output: Urine 400 1200 Other: Estimated Void Large # Voids 1 2 PEX: Comfortable Awake and alert and talking in full sentences. Lungs: decreased breath sounds at the bases, right greater than left. Laboratory Last Values WBC 10.2 10^3/ul (3.5-10.8) 12/30/16 08:43 RBC 3.22 10^6/ul (4.0-5.4) L 12/30/16 08:43 Hgb 9.9 g/dl (14.0-18.0) L 12/30/16 08:43 Hct 29 % (42-52) L 12/30/16 08:43 MCV 89 fL (80-94) 12/30/16 08:43 MCH 31 pg (27-31) 12/30/16 08:43 MCHC 34 g/dl (31-36) 12/30/16 08:43 RDW 14 % (10.5-15) 12/30/16 08:43 Plt Count 554 10^3/ul (150-450) H 12/30/16 08:43 MPV 6 um3 (7.4-10.4) L 12/30/16 08:43 Neut % (Auto) 76.0 % (38-83) 12/30/16 08:43 Lymph % (Auto) 11.3 % (25-47) L 12/30/16 08:43 Rich % (Auto) 9.3 % (1-9) H 12/30/16 08:43 Eos % (Auto) 2.5 % (0-6) 12/30/16 08:43 Baso % (Auto) 0.9 % (0-2) 12/30/16 08:43 Absolute Neuts (auto) 7.7 10^3/ul (1.5-7.7) 12/30/16 08:43 Absolute Lymphs (auto) 1.1 10^3/ul (1.0-4.8) 12/30/16 08:43 Absolute Monos (auto) 0.9 10^3/ul (0-0.8) H 12/30/16 08:43 Absolute Eos (auto) 0.3 10^3/ul (0-0.6) 12/30/16 08:43 Absolute Basos (auto) 0.1 10^3/ul (0-0.2) 12/30/16 08:43 Absolute Nucleated RBC 0 10^3/ul 12/30/16 08:43 Nucleated RBC % 0 12/30/16 08:43 Sodium 136 mmol/L (133-145) 12/30/16 08:43 Potassium 3.5 mmol/L (3.5-5.0) 12/30/16 08:43 Chloride 103 mmol/L (101-111) 12/30/16 08:43 Carbon Dioxide 27 mmol/L (22-32) 12/30/16 08:43 Anion Gap 6 mmol/L (2-11) 12/30/16 08:43 BUN 9 mg/dL (6-24) 12/30/16 08:43 Creatinine 0.55 mg/dL (0.67-1.17) L 12/30/16 08:43 Est GFR ( Amer) 211.1 (>60) 12/30/16 08:43 Est GFR (Non-Af Amer) 164.2 (>60) 12/30/16 08:43 BUN/Creatinine Ratio 16.4 (8-20) 12/30/16 08:43 Glucose 145 mg/dL (70-100) H 12/30/16 08:43 Lactic Acid 1.6 mmol/L (0.5-2.0) 12/28/16 00:25 Calcium 7.4 mg/dL (8.6-10.3) L 12/30/16 08:43 Total Bilirubin 0.50 mg/dL (0.2-1.0) 12/30/16 08:43 AST 9 U/L (13-39) L 12/30/16 08:43 ALT 10 U/L (7-52) 12/30/16 08:43 Alkaline Phosphatase 118 U/L (34-104) H 12/30/16 08:43 Troponin I 0.00 ng/mL (<0.04) 12/28/16 00:25 B-Natriuretic Peptide 117 pg/mL (-100) H 12/28/16 00:25 Total Protein 5.4 g/dL (6.4-8.9) L 12/30/16 08:43 Albumin 2.5 g/dL (3.2-5.2) L 12/30/16 08:43 Globulin 2.9 g/dL (2-4) 12/30/16 08:43 Albumin/Globulin Ratio 0.9 (1-3) L 12/30/16 08:43 Urine Color Yellow 12/28/16 04:30 Urine Appearance Clear 12/28/16 04:30 Urine pH 7 (5-9) 12/28/16 04:30 Ur Specific [place] 1.005 (1.010-1.030) L 12/28/16 04:30 Urine Protein 1+(30 mg/dl) (Negative) H 12/28/16 04:30 Urine Ketones Negative (Negative) 12/28/16 04:30 Urine Blood N (Negative) 12/28/16 04:30 Urine Nitrate N (Negative) 12/28/16 04:30 Urine Bilirubin Negative (Negative) 12/28/16 04:30 Urine Urobilinogen N (Negative) 12/28/16 04:30 Ur Leukocyte Esterase Negative (Negative) 12/28/16 04:30 Urine WBC (Auto) Trace(0-5/hpf) (Absent) 12/28/16 04:30 Urine RBC (Auto) Trace(0-2/hpf) (Absent) 12/28/16 04:30 Urine Bacteria Absent (Absent) 12/28/16 04:30 Urine Glucose N (Negative) 12/28/16 04:30 Urine Ascorbic Acid * (Negative) H 12/28/16 04:30 Fluid Source Pleural fluid 12/29/16 14:30 Fluid Volume Not Reportable 12/29/16 14:30 Fluid Color Yellow 12/29/16 14:30 Fluid Appearance Cloudy 12/29/16 14:30 Fluid WBC 330350 /mcL (0-270833) 12/29/16 14:30 Fluid RBC 506845 /mcL 12/29/16 14:30 Fluid Tot Cell Count 100 12/29/16 14:30 Fluid Neutrophils 90 % 12/29/16 14:30 Fluid Band Neutrophils 10 % 12/29/16 14:[address] chest also reviewed and discussed with Dr. Taylor Paul discussed care with Dr. Juarez yesterday after drainage procedure. Assessment: Right chest empyema--the area felt to be lung abscess may also be extrapleural fluid collection/abscess and not lung abscess as intially thought. There appear to be three separate fluid collections. Gram stain from aspiration of posterior fluid yesterday show multi-organisms. Overall today he appears improved. Plan: IV antibiotics He will most likely require surgical intervention with VATS this week. I don't feel that a single chest tube will adequately drain the space. Case discussed with Dr. Gaston who is out of town this weekend and he will review studies on his return. If patent's condition worsens this weekend, he will require transfer to a facility with thoracic surgery availability. Case also discussed with Dr. Shepherd.
--- NOTE | 2016-12-30 12:42 | PN ---
Subjective Date of Service: 12/30/16 Interval History: . - Rounded on patient this AM - Feels about the same - perhaps a bit better - His main complaint is coughing. Codeine is effective. Discussed adding toradol for antiinflammatory benefit. - duonebs, morphine, guaifenesin, tessalon perles all help "a bit" Discussed case with General Surgeons today (Dr. Wilson). All in agreement that VATS needed to definitively cure infection. Planning on VATS early this week (most likely Sunday), but will confirm with Dr. Gaston. Patient updated on this opinion and he is in agreement. Discussed plan to transfer if patient's condition worsens, though we discussed both his temperature and WBC and overall respiratory status has been IMPROVING. At this point, focusing on largely symptom control. . Family History: Unchanged from Admission Social History: Unchanged from Admission Past Medical History: Unchanged from Admission Objective Active Medications: Acetaminophen (Tylenol Tab*) 650 mg PO Q4H PRN PRN Reason: FEVER/PAIN Last Admin: 12/29/16 19:45 Dose: 650 mg Acetaminophen/Codeine Phosphate (Tylenol/Codeine 30 Mg Tab*) 1 tab PO Q4H PRN PRN Reason: COUGH Last Admin: 12/30/16 11:45 Dose: 1 tab Al Hydrox/Mg Hydrox/Simethicone (Maalox Plus*) 30 ml PO Q6H PRN PRN Reason: INDIGESTION Albuterol (Ventolin 2.5 Mg/3 Ml Neb.Magdalena*) 2.5 mg INH Q2H PRN PRN Reason: sob/wheezing Last Admin: 12/30/16 03:21 Dose: 2.5 mg Benzonatate (Tessalon Cap*) 100 mg PO TID PRN PRN Reason: coughing Last Admin: 12/30/16 04:27 Dose: 100 mg Docusate Sodium (Colace Cap*) 100 mg PO BID MARISOL Last Admin: 12/30/16 09:16 Dose: Not Given Guaifenesin/Dextromethorphan (Robitussin Dm*) 10 ml PO Q4H PRN PRN Reason: COUGH Last Admin: 12/30/16 11:46 Dose: 10 ml Heparin Sodium (Porcine) (Heparin Vial(*)) 5,000 units SUBCUT Q8HR [facility] Last Admin: 12/30/16 05:17 Dose: 5,000 units Hydromorphone HCl (Dilaudid Inj*) 1 mg IV SLOW PU Q4H PRN PRN Reason: chest pain Sodium Chloride (Ns 0.9% 1000 Ml*) 1,000 mls @ 125 mls/hr IV PER RATE [facility] Last Admin: 12/30/16 05:10 Dose: 125 mls/hr Ceftriaxone Sodium 1,000 mg/ (Sodium Chloride) 50 mls @ 200 mls/hr IVPB Q24H [facility] Last Admin: 12/29/16 19:48 Dose: 200 mls/hr Metronidazole/Sodium Chloride (Flagyl 500 Mg Ivpb*) 500 mg in 100 mls @ 100 mls /hr IVPB Q12H [facility] Last Admin: 12/30/16 08:06 Dose: 100 mls/hr Ketorolac Tromethamine (Toradol Inj*) 30 mg IV PUSH Q6H PRN PRN Reason: PAIN Last Admin: 12/30/16 08:01 Dose: 30 mg Lamotrigine (Lamictal Tab(*)) 200 mg PO DAILY [facility] Last Admin: 12/30/16 09:16 Dose: 200 mg Magnesium Hydroxide (Milk Of Magnesia Liq*) 30 ml PO Q4H PRN PRN Reason: CONSTIPATION Morphine Sulfate (Morphine Inj (Syringe)*) 4 mg IV Q4H PRN PRN Reason: PAIN Last Admin: 12/30/16 10:03 Dose: 4 mg Oxycodone/Acetaminophen (Percocet 5/325 Tab*) 1 tab PO Q4H PRN PRN Reason: Pain Last Admin: 12/28/16 13:41 Dose: 1 tab Quetiapine Fumarate (Seroquel Xr Tab*) 100 mg PO BEDTIME [facility] Last Admin: 12/29/16 21:37 Dose: Not Given Throat Lozenges (Chloraseptic Dalia*) 1 dalia PO Q6H PRN PRN Reason: SORE THROAT Last Admin: 12/30/16 08:00 Dose: 1 dalia Vital Signs 12/30/16 12/30/16 12/30/16 09:00 09:06 10:00 Temperature Pulse Rate 92 84 92 Respiratory 18 31 25 Rate Blood Pressure 142/78 141/92 (mmHg) O2 Sat by Pulse 98 100 100 Oximetry 12/30/16 12/30/1612/30/17 10:03 11:00 11:01 Temperature Pulse Rate 85 89 Respiratory 25 28 28 Rate Blood Pressure 142/91 (mmHg) O2 Sat by Pulse 100 100 Oximetry Oxygen Devices in Use Now: High Flow Nasal Cannula Appearance: mid aged, not in distress. using cell phone (texting) was sleeping when I first saw him this AM. Eyes: No Scleral Icterus Ears/Nose/Mouth/Throat: Clear Oropharnyx Neck: Trachea Midline Respiratory: - - R rhonchi noted. Cardiovascular: RRR - sometimes tachycardic. Abdominal: NL Sounds; No Tenderness; No Distention Lymphatic: No Cervical Adenopathy Extremities: No Edema Skin: No Rash or Ulcers Neurological: Alert and Oriented x 3 Lines/Tubes/Other Access: Clean, Dry and Intact Peripheral IV Nutrition: Taking PO's Result Diagrams: 12/30/16 08:43 12/30/16 08:43 Additional Lab and Data: . Microbiology and Other Data: Microbiology 12/29/16 14:30 Gram Stain - Final Pleural Fluid 12/29/16 14:30 Gram Stain - Final Pleural Fluid 12/28/16 20:20 Gram Stain - Final Sputum Expectorated 12/28/16 21:45 Nasal Screen MRSA (PCR)(YASSINE) - Final Nasal Mrsa Negative 12/28/16 04:30 Legionella Urinary Antigen - Final Urine Negative Legionella Streptococcus pneumoniae Ag Screen - Final Negative S. pneumo Antigen Assess/Plan/Problems-Billing . Assessment: 41 yo man with lung abscess and loculated pleural effusion/EMPYEMA. s/p IR drainage for culture and gram stain that shows EMPYEMA. Patient stable from a respiratory standpoint. Mild pain; ongoing cough noted. Current meds reviewed. - Patient Problems (1) Empyema of pleural space Current Visit: Yes Status: Acute Priority: High Code(s): J86.9 - PYOTHORAX WITHOUT FISTULA Comment: - On IV Abx - Surgery cnsult: will need VATS & will likely happen early next week. - Sx control includes NSAID, opiates, bronchodilators, antitussives & expectorants. - hemodynamically stable, daily labs; encourage oral intake as tolerated. - will transfer if clinical condition worsens (2) Abscess, lung/mediastinum Current Visit: Yes Status: Acute Priority: High Code(s): J85.2 - ABSCESS OF LUNG WITHOUT PNEUMONIA; J85.3 - ABSCESS OF MEDIASTINUM Comment: - Ceftriaxone / Flagyl - Morphine for chest pain / tachypnea - high flow nasal canula; keep sats > 90% - watch for fatiguing (no evidence); full code. (3) Bipolar disease, chronic Current Visit: Yes Status: Chronic Priority: Medium Code(s): F31.9 - BIPOLAR DISORDER, UNSPECIFIED Comment: - continue current outpatient medication regimen (4) Alcoholic liver disease Current Visit: No Status: Chronic Code(s): K70.9 - ALCOHOLIC LIVER DISEASE, UNSPECIFIED Comment: - noted history
[2016-12-30] MEDS ORDERED: Benzonatate CAP* 100 MG PO ONE (18:00)
[2016-12-30] MEDS: cefTRIAXone VIAL(*) 1,000 MG in NS 0.9% 50 ML* 50 ML IVPB SCH (19:48)
[2016-12-30] MEDS: QUEtiapine XR TAB* 50 MG PO SCH (20:23)
[2016-12-31] MEDS: HYDROmorphone INJ* 1 MG/ML CARPUJECT SYRINGE IV SLOW PU PRN ×5 (03:02→23:15)
[2016-12-31] MEDS: GuaiFENesin DM* 5 ML UDC PO PRN ×5 (03:41→20:41)
[2016-12-31] MEDS: Heparin VIAL(*) 5000 UNITS/ML VIAL (FIVE THOUSAND) SUBCUT SCH ×3 (05:32→20:21)
[2016-12-31] MEDS: Benzocaine/Menthol LOZ* 1 LOZENGE PO PRN ×3 (05:35→20:22)
[2016-12-31] MEDS: Acetaminop/Codeine 30 MG TAB* 1 TAB (300 MG/30 MG) PO PRN ×4 (06:48→20:22)
[2016-12-31] MEDS: Morphine INJ* 4 MG/ML 1 ML CARPUJECT IV PRN ×4 (07:21→20:41)
[2016-12-31] MEDS: metroNIDAZOLE IV 500 MG/100ML* 500 MG/100 ML BAG IVPB SCH ×2 (07:23→20:42)
[2016-12-31] MEDS: Docusate CAP* 100 MG PO SCH ×2 (08:07→20:22)
--- NOTE | 2016-12-31 08:14 | PN ---
Progress Note - Progress Note Date of Service: 12/31/16 SOAP: Subjective: Feels about the same Dry non-productive cough Slept a little last night and tolerated regular diet. Objective: Temp Pulse Resp BP Pulse Ox 98.8 F 105 18 131/73 95 12/31/16 07:36 12/31/16 07:36 12/31/16 07:36 12/31/16 07:36 12/31/16 07:36 PEX: Uncomfortable Lungs with decreased breath sounds on right. No rales or rhonchi Laboratory Results - last 24 hr 12/30/16 12/30/16 08:43 08:43 WBC 10.2 RBC 3.22 L Hgb 9.9 L Hct 29 L MCV 89 MCH 31 MCHC 34 RDW 14 Plt Count 554 H MPV 6 L Neut % (Auto) 76.0 Lymph % (Auto) 11.3 L [place] % (Auto) 9.3 H Eos % (Auto) 2.5 Baso % (Auto) 0.9 Absolute Neuts (auto) 7.7 Absolute Lymphs (auto) 1.1 Absolute Monos (auto) 0.9 H Absolute Eos (auto) 0.3 Absolute Basos (auto) 0.1 Absolute Nucleated RBC 0 Nucleated RBC % 0 Sodium 136 Potassium 3.5 Chloride 103 Carbon Dioxide 27 Anion Gap 6 BUN 9 Creatinine 0.55 L Est GFR ( Amer) 211.1 Est GFR (Non-Af Amer) 164.2 BUN/Creatinine Ratio 16.4 Glucose 145 H Calcium 7.4 L Total Bilirubin 0.50 AST 9 L ALT 10 Alkaline Phosphatase 118 H Total Protein 5.4 L Albumin 2.5 L Globulin 2.9 Albumin/Globulin Ratio 0.9 L Assessment: Right chest empyema-loculated collections Plan: Continue IV anbx Pulmonary toilet Operative intervention planned this week-probable VATS
[2016-12-31] MEDS: lamoTRIgine TAB(*) 100 MG PO SCH (08:30)
[2016-12-31 08:47] LABS: Hematocrit 29 % (42-52); Hemoglobin 9.8 g/dl (14.0-18.0); Mean Corpuscular HGB Conc 33 g/dl (31-36); Mean Corpuscular Hemoglobin 30 pg (27-31); Mean Corpuscular Volume 89 fL (80-94); Mean Platelet Volume 6 um3 (7.4-10.4); Red Blood Count 3.29 10^6/ul (4.0-5.4); Red Cell Distribution Width 14 % (10.5-15); White Blood Count 13.3 10^3/ul (3.5-10.8)
[2016-12-31 09:00] LABS: BUN/Creatinine Ratio 11.1 (8-20); Calcium 7.7 mg/dL (8.6-10.3); EGFR African American 154.7 (>60); EGFR Non-African American 120.3 (>60); Phosphorus 2.4 mg/dL (2.5-5.0); Potassium 3.3 mmol/L (3.5-5.0)
[2016-12-31] MEDS: NS 0.9% 1000 ML* 1,000 ML IV SCH ×2 (09:10→18:13)
[2016-12-31] MEDS: Benzonatate CAP* 100 MG PO PRN ×2 (09:21→20:21)
[2016-12-31] MEDS ORDERED: Potassium Chlor TAB* 20 MEQ TAB.ER PO ONE (10:50)
--- NOTE | 2016-12-31 10:58 | PN ---
Subjective Date of Service: 12/31/16 Interval History: . main c/o is coughing. says nothing really helps, but gets come relief from albuterol, so we will continue that. discussed lidocaine patch for entry site for IR drainage. also discussed chloraseptic spray for sore throat. He understands there is going to be a review of his radiology images by Dr. Gaston for VATS as this is very likely required for this to heal. . Family History: Unchanged from Admission Social History: Unchanged from Admission Past Medical History: Unchanged from Admission Objective Active Medications: Acetaminophen (Tylenol Tab*) 650 mg PO Q4H PRN PRN Reason: FEVER/PAIN Last Admin: 12/29/16 19:45 Dose: 650 mg Acetaminophen/Codeine Phosphate (Tylenol/Codeine 30 Mg Tab*) 1 tab PO Q4H PRN PRN Reason: COUGH Last Admin: 12/31/16 06:48 Dose: 1 tab Al Hydrox/Mg Hydrox/Simethicone (Maalox Plus*) 30 ml PO Q6H PRN PRN Reason: INDIGESTION Albuterol (Ventolin 2.5 Mg/3 Ml Neb.Magdalena*) 2.5 mg INH Q2H PRN PRN Reason: sob/wheezing Last Admin: 12/30/16 20:54 Dose: 2.5 mg Benzonatate (Tessalon Cap*) 100 mg PO Q8H PRN PRN Reason: NOT STATED... Last Admin: 12/31/16 09:21 Dose: 100 mg Docusate Sodium (Colace Cap*) 100 mg PO BID [facility] Last Admin: 12/31/16 08:07 Dose: Not Given Guaifenesin/Dextromethorphan (Robitussin Dm*) 10 ml PO Q4H PRN PRN Reason: COUGH Last Admin: 12/31/16 08:26 Dose: 10 ml Heparin Sodium (Porcine) (Heparin Vial(*)) 5,000 units SUBCUT Q8HR [facility] Last Admin: 12/31/16 05:32 Dose: 5,000 units Hydromorphone HCl (Dilaudid Inj*) 1 mg IV SLOW PU Q4H PRN PRN Reason: chest pain Last Admin: 12/31/16 09:21 Dose: 1 mg Sodium Chloride (Ns 0.9% 1000 Ml*) 1,000 mls @ 125 mls/hr IV PER RATE [facility] Last Admin: 12/31/16 09:10 Dose: 125 mls/hr Ceftriaxone Sodium 1,000 mg/ (Sodium Chloride) 50 mls @ 200 mls/hr IVPB Q24H [facility] Last Admin: 12/30/16 19:48 Dose: 200 mls/hr Metronidazole/Sodium Chloride (Flagyl 500 Mg Ivpb*) 500 mg in 100 mls @ 100 mls /hr IVPB Q12H [facility] Last Admin: 12/31/16 07:23 Dose: 100 mls/hr Ketorolac Tromethamine (Toradol Inj*) 30 mg IV PUSH Q6H PRN PRN Reason: PAIN Last Admin: 12/30/16 16:53 Dose: 30 mg Lamotrigine (Lamictal Tab(*)) 200 mg PO DAILY [facility] Last Admin: 12/31/16 08:30 Dose: 200 mg Lidocaine (Lidoderm 5% Patch*) 1 patch TRANSDERM DAILY [facility] Magnesium Hydroxide (Milk Of Magnesia Liq*) 30 ml PO Q4H PRN PRN Reason: CONSTIPATION Morphine Sulfate (Morphine Inj (Syringe)*) 4 mg IV Q4H PRN PRN Reason: PAIN Last Admin: 12/31/16 07:21 Dose: 4 mg Oxycodone/Acetaminophen (Percocet 5/325 Tab*) 1 tab PO Q4H PRN PRN Reason: Pain Last Admin: 12/28/16 13:41 Dose: 1 tab Pharmacy Profile Note (Lidocaine Patch Remove*) 1 note N/A 2[address] [facility] Phenol/Menthol (Chloroseptic Throat [place]*) 1 spray MT TID PRN PRN Reason: SORE THROAT Potassium Chloride (Klor Con Er Tab*) 40 meq PO ONCE ONE Stop: 12/31/16 10:51 Quetiapine Fumarate (Seroquel Xr Tab*) 100 mg PO BEDTIME [facility] Last Admin: 12/30/16 20:23 Dose: 100 mg Throat Lozenges (Chloraseptic Dalia*) 1 dalia PO Q6H PRN PRN Reason: SORE THROAT Last Admin: 12/31/16 05:35 Dose: 1 dalia Vital Signs 12/30/16 12/30/16 12/30/16 11:00 11:01 11:20 Temperature Pulse Rate 85 89 Respiratory 28 28 22 Rate Blood Pressure 142/91 (mmHg) O2 Sat by Pulse 100 100 Oximetry 12/30/16 12/30/16 12/30/16 12:00 13:00 13:01 Temperature Pulse Rate 92 93 90 Respiratory 27 24 26 Rate Blood Pressure 138/87 151/88 (mmHg) O2 Sat by Pulse 100 91 100 Oximetry Oxygen Devices in Use Now: None Appearance: NAD at this time; often coughing though. Eyes: No Scleral Icterus Ears/Nose/Mouth/Throat: Clear Oropharnyx Respiratory: Clear to Auscultation Cardiovascular: RRR Lymphatic: No Cervical Adenopathy Extremities: No Edema Skin: No Rash or Ulcers Neurological: Alert and Oriented x 3 Lines/Tubes/Other Access: Clean, Dry and Intact Peripheral IV Nutrition: Taking PO's Result Diagrams: 12/31/16 08:20 12/31/16 08:20 Additional Lab and Data: . Microbiology and Other Data: Microbiology 12/29/16 14:30 Gram Stain - Final Pleural Fluid 12/29/16 14:30 Gram Stain - Final Pleural Fluid 12/28/16 20:20 Gram Stain - Final Sputum Expectorated 12/28/16 21:45 Nasal Screen MRSA (PCR)(YASSINE) - Final Nasal Mrsa Negative 12/28/16 04:30 Legionella Urinary Antigen - Final Urine Negative Legionella Streptococcus pneumoniae Ag Screen - Final Negative S. pneumo Antigen Assess/Plan/Problems-Billing . Assessment: 41 yo man with lung abscess and loculated pleural effusion/EMPYEMA. s/p IR drainage for culture and gram stain that shows EMPYEMA. Patient stable from a respiratory standpoint. Mild pain; ongoing cough noted. Current meds reviewed. - Patient Problems (1) Empyema of pleural space Current Visit: Yes Status: Acute Priority: High Code(s): J86.9 - PYOTHORAX WITHOUT FISTULA Comment: - On IV Abx - Surgery cnsult: will need VATS & will likely happen early next week. - Sx control includes NSAID, opiates, bronchodilators, antitussives & expectorants. - hemodynamically stable, daily labs; encourage oral intake as tolerated. - will transfer if clinical condition worsens (2) Abscess, lung/mediastinum Current Visit: Yes Status: Acute Priority: High Code(s): J85.2 - ABSCESS OF LUNG WITHOUT PNEUMONIA; J85.3 - ABSCESS OF MEDIASTINUM Comment: - Ceftriaxone / Flagyl - Morphine for chest pain / tachypnea - high flow nasal canula; keep sats > 90% - watch for fatiguing (no evidence); full code. (3) Bipolar disease, chronic Current Visit: Yes Status: Chronic Priority: Medium Code(s): F31.9 - BIPOLAR DISORDER, UNSPECIFIED Comment: - continue current outpatient medication regimen (4) Alcoholic liver disease Current Visit: No Status: Chronic Code(s): K70.9 - ALCOHOLIC LIVER DISEASE, UNSPECIFIED Comment: - noted history
[2016-12-31] MEDS: Albuterol 2.5 MG/3 ML NEB.SOL* (0.083%) INH PRN ×2 (11:11→18:40)
[2016-12-31] MEDS: Lidocaine PATCH 5%* 1 PATCH TRANSDERM SCH (11:45)
[2016-12-31] MEDS ORDERED: Potassium Phosphate IV* 15 MMOLE in NS 0.9% 250 ML* 250 ML IVPB ONE (12:14)
[2016-12-31 12:45] LABS: Glucose, BF 332 mg/dL
[2016-12-31 12:46] LABS: Total Protein, BF 2.5 g/dL
[2016-12-31] MEDS: Ketorolac INJ* 30 MG/ML 1 ML VIAL IV PUSH PRN ×2 (12:53→19:11)
[2016-12-31] MEDS: Phenol 1.4% Spray* 177 ML BTL MT PRN (16:52)
[2016-12-31] MEDS: cefTRIAXone VIAL(*) 1,000 MG in NS 0.9% 50 ML* 50 ML IVPB SCH (20:21)
[2016-12-31] MEDS: QUEtiapine XR TAB* 50 MG PO SCH (20:22)
[2016-12-31] MEDS: Lidocaine Patch REMOVE* 1 NOTE MISC SCH (20:41)
[2017-01-01] MEDS: Acetaminop/Codeine 30 MG TAB* 1 TAB (300 MG/30 MG) PO PRN ×6 (00:41→21:29)
[2017-01-01] MEDS: GuaiFENesin DM* 5 ML UDC PO PRN ×6 (00:41→21:29)
[2017-01-01] MEDS: Morphine INJ* 4 MG/ML 1 ML CARPUJECT IV PRN ×6 (00:42→22:52)
[2017-01-01] MEDS: Ketorolac INJ* 30 MG/ML 1 ML VIAL IV PUSH PRN ×4 (01:17→21:29)
[2017-01-01] MEDS: Phenol 1.4% Spray* 177 ML BTL MT PRN ×4 (01:17→21:28)
[2017-01-01] MEDS: Benzocaine/Menthol LOZ* 1 LOZENGE PO PRN ×3 (02:36→21:29)
[2017-01-01] MEDS: HYDROmorphone INJ* 1 MG/ML CARPUJECT SYRINGE IV SLOW PU PRN ×5 (03:29→20:08)
[2017-01-01] MEDS: NS 0.9% 1000 ML* 1,000 ML IV SCH ×3 (03:50→20:08)
[2017-01-01] MEDS: Benzonatate CAP* 100 MG PO PRN ×3 (04:59→21:29)
[2017-01-01] MEDS: Heparin VIAL(*) 5000 UNITS/ML VIAL (FIVE THOUSAND) SUBCUT SCH ×4 (05:34→21:17)
[2017-01-01 07:08] LABS: White Blood Count 12.9 10^3/ul (3.5-10.8)
[2017-01-01 07:10] LABS: Hematocrit 30 % (42-52); Hemoglobin 10.1 g/dl (14.0-18.0); Mean Corpuscular HGB Conc 34 g/dl (31-36); Mean Corpuscular Hemoglobin 31 pg (27-31); Mean Corpuscular Volume 89 fL (80-94); Mean Platelet Volume 6 um3 (7.4-10.4); Red Blood Count 3.32 10^6/ul (4.0-5.4); Red Cell Distribution Width 14 % (10.5-15)
[2017-01-01 07:12] LABS: Comments Flag Yes
[2017-01-01 07:24] LABS: BUN/Creatinine Ratio 8.3 (8-20); EGFR African American 190.9 (>60); EGFR Non-African American 148.5 (>60); Magnesium 2.1 mg/dL (1.9-2.7); Phosphorus 2.9 mg/dL (2.5-5.0); Potassium 3.4 mmol/L (3.5-5.0)
[2017-01-01] MEDS: lamoTRIgine TAB(*) 100 MG PO SCH (08:57)
[2017-01-01] MEDS: metroNIDAZOLE IV 500 MG/100ML* 500 MG/100 ML BAG IVPB SCH ×2 (08:58→21:19)
[2017-01-01] MEDS: Lidocaine PATCH 5%* 1 PATCH TRANSDERM SCH (09:00)
[2017-01-01] MEDS: Docusate CAP* 100 MG PO SCH ×2 (10:09→21:17)
--- NOTE | 2017-01-01 12:13 | PN ---
Progress Note - Progress Note Date of Service: 01/01/17 SOAP: Subjective: CC: empyema HPI: 41 year old man with lung abscess and multifocal empyema, had thoracentesis. Breathing and right sided chest pain are better. Some cough, occasional small amount of blood comes up. No fever, rash, or diarrhea. Objective: [] Vital Signs Temp 36.7 C 01/01/17 07:16 Pulse 93 01/01/17 07:16 Resp 18 01/01/17 11:44 BP 133/83 01/01/17 07:16 Pulse Ox 97 01/01/17 07:16 Intake & Output 12/31/16 01/01/17 01/01/17 18:59 06:59 18:59 Intake Total 4116 4087 225 Output Total 3275 6350 300 Balance 841 -2263 -75 Intake: IV Fluids 1994 1671 ABX - CEFTRIAXONE 55 ABX - FLAGYL 100 105 NS (0.9%) 1895 1262 Potassium Phosphate 250 IVPB 71 Potassium Phosphate 71 Oral 2050 2415 225 Output: Urine 3275 6350 300 Other: # Bowel Movements 1 Estimated Stool Amount Small Gen:awake, no distress HEENT:PERLL, MMM Neck:Supple Heart:RRR no murmur Lungs: Decr BS L base, no wheeze or rale Abd:+BS NTND soft Skin: No rash MSK: no spine tenderness Laboratory Results - last 24 hr 12/29/16 12/29/16 12/29/16 14:30 14:30 14:30 WBC RBC Hgb Hct MCV MCH MCHC RDW Plt Count MPV Neut % (Auto) Lymph % (Auto) [place] % (Auto) Eos % (Auto) Baso % (Auto) Absolute Neuts (auto) Absolute Lymphs (auto) Absolute Monos (auto) Absolute Eos (auto) Absolute Basos (auto) Absolute Nucleated RBC Nucleated RBC % Sodium Potassium Chloride Carbon Dioxide Anion Gap BUN Creatinine Est GFR ( Amer) Est GFR (Non-Af Amer) BUN/Creatinine Ratio Glucose Calcium Phosphorus Magnesium Fluid Source Pleural fluid Pleural fluid Fluid Cell Count Rvw By Fluid Glucose Fluid Total Protein 2.5 12/29/16 12/29/16 12/29/16 14:30 14:30 14:30 WBC RBC Hgb Hct MCV MCH MCHC RDW Plt Count MPV Neut % (Auto) Lymph % (Auto) [place] % (Auto) Eos % (Auto) Baso % (Auto) Absolute Neuts (auto) Absolute Lymphs (auto) Absolute Monos (auto) Absolute Eos (auto) Absolute Basos (auto) Absolute Nucleated RBC Nucleated RBC % Sodium Potassium Chloride Carbon Dioxide Anion Gap BUN Creatinine Est GFR ( Amer) Est GFR (Non-Af Amer) BUN/Creatinine Ratio Glucose Calcium Phosphorus Magnesium Fluid Source Pleural fluid Pleural fluid Fluid Cell Count Rvw By Fluid Glucose 332 Fluid Total Protein 12/29/16 01/01/17 01/01/17 14:30 06:42 06:42 WBC 12.9 H RBC 3.32 L Hgb 10.1 L Hct 30 L MCV 89 MCH 31 MCHC 34 RDW 14 Plt Count 824 H D MPV 6 L Neut % (Auto) 74.0 Lymph % (Auto) 12.0 L [place] % (Auto) 10.0 H Eos % (Auto) 3.7 Baso % (Auto) 0.3 Absolute Neuts (auto) 9.5 H Absolute Lymphs (auto) 1.5 Absolute Monos (auto) 1.3 H Absolute Eos (auto) 0.5 Absolute Basos (auto) 0 Absolute Nucleated RBC 0.01 Nucleated RBC % 0.1 Sodium 137 Potassium 3.4 L Chloride 105 Carbon Dioxide 26 Anion Gap 6 BUN 5 L Creatinine 0.60 L Est GFR ( Amer) 190.9 Est GFR (Non-Af Amer) 148.5 BUN/Creatinine Ratio 8.3 Glucose 105 H Calcium 8.0 L Phosphorus 2.9 Magnesium 2.1 Fluid Source Pleural fluid Fluid Cell Count Rvw By Fluid Glucose Fluid Total Protein 3.0 Microbiology 12/29/16 14:30 Gram Stain - Final Pleural Fluid Body Fluid Culture - Preliminary Streptococcus Anginosus Eikenella Corrodens 12/28/16 00:25 Aerobic Blood Culture - Preliminary Blood Venous No Growth Day 4 Anaerobic Blood Culture - Preliminary No Growth Day 4 Blood Culture - Final 12/28/16 00:25 Aerobic Blood Culture - Preliminary Blood Venous No Growth Day 4 Anaerobic Blood Culture - Preliminary No Growth Day 4 Blood Culture - Final 12/29/16 14:30 Gram Stain - Final Pleural Fluid Body Fluid Culture - Preliminary Streptococcus Anginosus Eikenella Corrodens Assessment: 1. polymicrobial lung abscess and multifocal empyema; oral kim 2. elevated CRP Plan: 1. continue ceftriaxone/flagyl. Will need 4 weeks IV antibiotics. Consideration for more definitive drainage pending. 35 minutes floor time >50% face to face in counseling regarding [facility] antibiotic treatment options.
--- NOTE | 2017-01-01 13:37 | PN ---
Subjective Date of Service: 01/01/17 Interval History: Patient states that he feels very similar to yesterday with no changes in levels of various pains. Patient states that he has 8-9/10 right sided pleuritic chest pain which radiates down into his upper abdomen. Patient also has 8-9/10 pain in his throat which is exacerbated by coughing. Patient is on a stringent anti-tussive regimen which helps moderately, but he still has coughing fits up to 10 minutes long. Patient also has uncoordination, numbness and tingling over his fifth and the medial aspect of his left fingers and into his medial forearm. Patient states that it happened after an IV was inserted into his left forearm. Patient states he was also using his computer for an extended period of time on his first day of admission to the hospital. Family History: Unchanged from Admission Social History: Unchanged from Admission Past Medical History: Unchanged from Admission Objective Active Medications: Acetaminophen (Tylenol Tab*) 650 mg PO Q4H PRN PRN Reason: FEVER/PAIN Last Admin: 12/29/16 19:45 Dose: 650 mg Acetaminophen/Codeine Phosphate (Tylenol/Codeine 30 Mg Tab*) 1 tab PO Q4H PRN PRN Reason: COUGH Last Admin: 01/01/17 13:16 Dose: 1 tab Al Hydrox/Mg Hydrox/Simethicone (Maalox Plus*) 30 ml PO Q6H PRN PRN Reason: INDIGESTION Albuterol (Ventolin 2.5 Mg/3 Ml Neb.Magdalena*) 2.5 mg INH Q2H PRN PRN Reason: sob/wheezing Last Admin: 12/31/16 18:40 Dose: 2.5 mg Benzonatate (Tessalon Cap*) 100 mg PO Q8H PRN PRN Reason: NOT STATED... Last Admin: 01/01/17 13:20 Dose: 100 mg Docusate Sodium (Colace Cap*) 100 mg PO BID@0600,2100 [facility] Guaifenesin/Dextromethorphan (Robitussin Dm*) 10 ml PO Q4H PRN PRN Reason: COUGH Last Admin: 01/01/17 13:20 Dose: 10 ml Heparin Sodium (Porcine) (Heparin Vial(*)) 5,000 units SUBCUT Q8HR [facility] Last Admin: 09/25/17 07:38 Dose: 5,000 units Hydromorphone HCl (Dilaudid Inj*) 1 mg IV SLOW PU Q4H PRN PRN Reason: chest pain Last Admin: 01/01/17 11:44 Dose: 1 mg Sodium Chloride (Ns 0.9% 1000 Ml*) 1,000 mls @ 125 mls/hr IV PER RATE [facility] Last Admin: 01/01/17 09:17 Dose: 125 mls/hr Ceftriaxone Sodium 1,000 mg/ (Sodium Chloride) 50 mls @ 200 mls/hr IVPB Q24H [facility] Last Admin: 12/31/16 20:21 Dose: 200 mls/hr Metronidazole/Sodium Chloride (Flagyl 500 Mg Ivpb*) 500 mg in 100 mls @ 100 mls /hr IVPB Q12H [facility] Last Admin: 01/01/17 08:58 Dose: 100 mls/hr Ketorolac Tromethamine (Toradol Inj*) 30 mg IV PUSH Q6H PRN PRN Reason: PAIN Last Admin: 01/01/17 07:38 Dose: 30 mg Lamotrigine (Lamictal Tab(*)) 200 mg PO DAILY@0600 [facility] Lidocaine (Lidoderm 5% Patch*) 1 patch TRANSDERM DAILY [facility] Last Admin: 01/01/17 09:00 Dose: 1 patch Magnesium Hydroxide (Milk Of Magnhernandez Liq*) 30 ml PO Q4H PRN PRN Reason: CONSTIPATION Morphine Sulfate (Morphine Inj (Syringe)*) 4 mg IV Q4H PRN PRN Reason: PAIN Last Admin: 01/01/17 10:13 Dose: 4 mg Oxycodone/Acetaminophen (Percocet 5/325 Tab*) 1 tab PO Q4H PRN PRN Reason: Pain Last Admin: 12/28/16 13:41 Dose: 1 tab Pharmacy Profile Note (Lidocaine Patch Remove*) 1 note N/A 2100 [facility] Last Admin: 12/31/16 20:41 Dose: 1 note Phenol/Menthol (Chloroseptic Throat [place]*) 1 spray MT TID PRN PRN Reason: SORE THROAT Last Admin: 01/01/17 10:16 Dose: 1 spray Quetiapine Fumarate (Seroquel Xr Tab*) 100 mg PO BEDTIME [facility] Last Admin: 12/31/16 20:22 Dose: Not Given Throat Lozenges (Chloraseptic Dalia*) 1 dalia PO Q6H PRN PRN Reason: SORE THROAT Last Admin: 01/01/17 08:59 Dose: 1 dalia Vital Signs 12/31/16 12/31/16 12/31/16 13:44 14:44 15:08 Temperature 98.4 F Pulse Rate 98 Respiratory 16 16 18 Rate Blood Pressure 132/73 (mmHg) O2 Sat by Pulse 96 Oximetry 12/31/16 12/31/16 12/31/16 15:27 16:44 17:27 Temperature Pulse Rate Respiratory 16 16 16 Rate Blood Pressure (mmHg) O2 Sat by Pulse Oximetry 12/31/16 12/31/16 12/31/16 17:44 18:35 18:40 Temperature Pulse Rate 110 Respiratory 16 16 18 Rate Blood Pressure (mmHg) O2 Sat by Pulse 96 Oximetry 12/31/16 12/31/16 12/31/16 19:16 19:35 20:22 Temperature 98.9 F Pulse Rate 114 Respiratory 19 22 22 Rate Blood Pressure 144/82 (mmHg) O2 Sat by Pulse 97 Oximetry 12/31/16 12/31/16 12/31/16 20:30 20:41 22:00 Temperature Pulse Rate Respiratory 22 22 20 Rate Blood Pressure (mmHg) O2 Sat by Pulse Oximetry 12/31/16 12/31/16 01/01/17 23:15 23:17 00:41 Temperature 98.7 F Pulse Rate 106 Respiratory 16 20 24 Rate Blood Pressure 132/71 (mmHg) O2 Sat by Pulse 98 Oximetry 01/01/17 01/01/17 01/01/17 00:42 01:39 02:41 Temperature Pulse Rate Respiratory 24 20 20 Rate Blood Pressure (mmHg) O2 Sat by Pulse Oximetry 01/01/17 01/01/17 01/01/17 03:26 03:29 04:29 Temperature 98.8 F Pulse Rate 89 Respiratory 20 20 22 Rate Blood Pressure 120/86 (mmHg) O2 Sat by Pulse 96 Oximetry 01/01/17 01/01/17 01/01/17 04:59 05:54 07:16 Temperature 98.1 F Pulse Rate 93 Respiratory 22 24 17 Rate Blood Pressure 133/83 (mmHg) O2 Sat by Pulse 97 Oximetry 01/01/17 01/01/17 01/01/17 07:38 07:53 08:38 Temperature Pulse Rate Respiratory 20 20 16 Rate Blood Pressure (mmHg) O2 Sat by Pulse Oximetry 01/01/17 01/01/17 01/01/17 08:57 10:13 11:44 Temperature Pulse Rate Respiratory 16 18 18 Rate Blood Pressure (mmHg) O2 Sat by Pulse Oximetry 01/01/17 01/01/17 12:44 13:16 Temperature Pulse Rate Respiratory 18 20 Rate Blood Pressure (mmHg) O2 Sat by Pulse Oximetry Oxygen Devices in Use Now: None Appearance: Patient is a 41yo male who appears stated age sitting comfortably in bed in [facility]. Eyes: No Scleral Icterus, PERRLA Ears/Nose/Mouth/Throat: NL Teeth, Lips, Gums, Mucous Membranes Moist, - - Erythematous pharynx without exudate, drainage or ulceration. Neck: NL Appearance and Movements; NL JVP, Trachea Midline Respiratory: Symmetrical Chest Expansion and Respiratory Effort, - - Wheezes and Rhonchi through all of Right lobe of lung. Single wheeze noted on Left middle lobe. Good Air exchange B/L. Egophony negative. Exam limiited by paroxysmal coughing triggered by deep breathing. Cardiovascular: NL Sounds; No Murmurs; No JVD, RRR, No Edema Abdominal: No Hepatosplenomegaly, - - BS normoactive in 4 quadrants. Non- distended. Tenderness to palpation over RUQ which patient states is similar to pleuritic pain. Lymphatic: No Cervical Adenopathy Extremities: No Edema, No Clubbing, Cyanosis Skin: No Rash or Ulcers, No Nodules or Sclerosis Neurological: Alert and Oriented x 3, NL Muscle Strength and Tone, - - Decreased sensation to light touch over the medial fourth and fifth digits. Result Diagrams: 01/01/17 06:42 01/01/17 06:42 Additional Lab and Data: . 12/29/16 12/29/16 12/29/16 14:30 14:30 14:30 WBC RBC Hgb Hct MCV MCH MCHC RDW Plt Count MPV Neut % (Auto) Lymph % (Auto) [place] % (Auto) Eos % (Auto) Baso % (Auto) Absolute Neuts (auto) Absolute Lymphs (auto) Absolute Monos (auto) Absolute Eos (auto) Absolute Basos (auto) Absolute Nucleated RBC Nucleated RBC % Sodium Potassium Chloride Carbon Dioxide Anion Gap BUN Creatinine Est GFR ( Amer) Est GFR (Non-Af Amer) BUN/Creatinine Ratio Glucose Calcium Phosphorus Magnesium Total Bilirubin AST ALT Alkaline Phosphatase Total Protein Albumin Globulin Albumin/Globulin Ratio Fluid Source Pleural fluid Pleural fluid Pleural fluid Fluid Volume Not Reportable Fluid Color Yellow Fluid Appearance Cloudy Fluid WBC 409765 Fluid RBC [id number] Fluid Tot Cell Count 100 Fluid Neutrophils 90 Fluid Band Neutrophils 10 Fluid Cell Count Rvw By Fluid Glucose Fluid Total Protein 2.5 12/29/16 12/29/16 12/29/16 14:30 14:30 14:30 WBC RBC Hgb Hct MCV MCH MCHC RDW Plt Count MPV Neut % (Auto) Lymph % (Auto) [place] % (Auto) Eos % (Auto) Baso % (Auto) Absolute Neuts (auto) Absolute Lymphs (auto) Absolute Monos (auto) Absolute Eos (auto) Absolute Basos (auto) Absolute Nucleated RBC Nucleated RBC % Sodium Potassium Chloride Carbon Dioxide Anion Gap BUN Creatinine Est GFR ( Amer) Est GFR (Non-Af Amer) BUN/Creatinine Ratio Glucose Calcium Phosphorus Magnesium Total Bilirubin AST ALT Alkaline Phosphatase Total Protein Albumin Globulin Albumin/Globulin Ratio Fluid Source Pleural fluid Pleural fluid Pleural fluid Fluid Volume Not Reportable Fluid Color Red Fluid Appearance Cloudy Fluid WBC 330195 Fluid RBC 844957 Fluid Tot Cell Count 100 Fluid Neutrophils 91 Fluid Band Neutrophils 9 Fluid Cell Count Rvw By Fluid Glucose 332 Fluid Total Protein 12/29/16 12/30/16 12/30/16 14:30 08:43 08:43 WBC 10.2 RBC 3.22 L Hgb 9.9 L Hct 29 L MCV 89 MCH 31 MCHC 34 RDW 14 Plt Count 554 H MPV 6 L Neut % (Auto) 76.0 Lymph % (Auto) 11.3 L [place] % (Auto) 9.3 H Eos % (Auto) 2.5 Baso % (Auto) 0.9 Absolute Neuts (auto) 7.7 Absolute Lymphs (auto) 1.1 Absolute Monos (auto) 0.9 H Absolute Eos (auto) 0.3 Absolute Basos (auto) 0.1 Absolute Nucleated RBC 0 Nucleated RBC % 0 Sodium 136 Potassium 3.5 Chloride 103 Carbon Dioxide 27 Anion Gap 6 BUN 9 Creatinine 0.55 L Est GFR ( Amer) 211.1 Est GFR (Non-Af Amer) 164.2 BUN/Creatinine Ratio 16.4 Glucose 145 H Calcium 7.4 L Phosphorus Magnesium Total Bilirubin 0.50 AST 9 L ALT 10 Alkaline Phosphatase 118 H Total Protein 5.4 L Albumin 2.5 L Globulin 2.9 Albumin/Globulin Ratio 0.9 L Fluid Source Pleural fluid Fluid Volume Fluid Color Fluid Appearance Fluid WBC Fluid RBC Fluid Tot Cell Count Fluid Neutrophils Fluid Band Neutrophils Fluid Cell Count Rvw By Fluid Glucose Fluid Total Protein 3.0 12/31/16 12/31/16 01/01/17 08:20 08:20 06:42 WBC 13.3 H 12.9 H RBC 3.29 L 3.32 L Hgb 9.8 L 10.1 L Hct 29 L 30 L MCV 89 89 MCH 30 31 MCHC 33 34 RDW 14 14 Plt Count 724 H D 824 H D MPV 6 L 6 L Neut % (Auto) 75.7 74.0 Lymph % (Auto) 11.3 L 12.0 L [place] % (Auto) 9.7 H 10.0 H Eos % (Auto) 3.0 3.7 Baso % (Auto) 0.3 0.3 Absolute Neuts (auto) 10.1 H 9.5 H Absolute Lymphs (auto) 1.5 1.5 Absolute Monos (auto) 1.3 H 1.3 H Absolute Eos (auto) 0.4 0.5 Absolute Basos (auto) 0 0 Absolute Nucleated RBC 0 0.01 Nucleated RBC % 0 0.1 Sodium 135 Potassium 3.3 L Chloride 104 Carbon Dioxide 24 Anion Gap 7 BUN 8 Creatinine 0.72 Est GFR ( Amer) 154.7 Est GFR (Non-Af Amer) 120.3 BUN/Creatinine Ratio 11.1 Glucose 177 H Calcium 7.7 L Phosphorus 2.4 L Magnesium 2.0 Total Bilirubin AST ALT Alkaline Phosphatase Total Protein Albumin Globulin Albumin/Globulin Ratio Fluid Source Fluid Volume Fluid Color Fluid Appearance Fluid WBC Fluid RBC Fluid Tot Cell Count Fluid Neutrophils Fluid Band Neutrophils Fluid Cell Count Rvw By Fluid Glucose Fluid Total Protein 01/01/17 06:42 WBC RBC Hgb Hct MCV MCH MCHC RDW Plt Count MPV Neut % (Auto) Lymph % (Auto) [place] % (Auto) Eos % (Auto) Baso % (Auto) Absolute Neuts (auto) Absolute Lymphs (auto) Absolute Monos (auto) Absolute Eos (auto) Absolute Basos (auto) Absolute Nucleated RBC Nucleated RBC % Sodium 137 Potassium 3.4 L Chloride 105 Carbon Dioxide 26 Anion Gap 6 BUN 5 L Creatinine 0.60 L Est GFR ( Amer) 190.9 Est GFR (Non-Af Amer) 148.5 BUN/Creatinine Ratio 8.3 Glucose 105 H Calcium 8.0 L Phosphorus 2.9 Magnesium 2.1 Total Bilirubin AST ALT Alkaline Phosphatase Total Protein Albumin Globulin Albumin/Globulin Ratio Fluid Source Fluid Volume Fluid Color Fluid Appearance Fluid WBC Fluid RBC Fluid Tot Cell Count Fluid Neutrophils Fluid Band Neutrophils Fluid Cell Count Rvw By Fluid Glucose Fluid Total Protein Microbiology and Other Data: Microbiology 12/29/16 14:30 Gram Stain - Final Pleural Fluid 12/29/16 14:30 Gram Stain - Final Pleural Fluid 12/28/16 20:20 Gram Stain - Final Sputum Expectorated 12/28/16 21:45 Nasal Screen MRSA (PCR)(YASSINE) - Final Nasal Mrsa Negative 12/28/16 04:30 Legionella Urinary Antigen - Final Urine Negative Legionella Streptococcus pneumoniae Ag Screen - Final Negative S. pneumo Antigen Assess/Plan/Problems-Billing . Assessment: Patient is a 41yo male with a lung abscess with associated empyema who is status post IR drainage and is planned to go to have a VATS procedure tomorrow for definitive surgical treatment of this abscess. Patient will remain inpatient at this time for pain control and IV antibiotics. - Patient Problems (1) Abscess, lung/mediastinum Current Visit: Yes Status: Acute Priority: High Code(s): J85.2 - ABSCESS OF LUNG WITHOUT PNEUMONIA; J85.3 - ABSCESS OF MEDIASTINUM SNOMED Code(s): 942872850 Comment: Continue Ceftriaxone / Flagyl per ID Morphine and dilaudid for pain control Patient currently on RA, O2 PRN, no signs of fatigue. (2) Empyema of pleural space Current Visit: Yes Status: Acute Priority: High Code(s): J86.9 - PYOTHORAX WITHOUT FISTULA SNOMED Code(s): 81439597 Comment: IV Abx as above Surgery states they will take him to OR tomorrow, will be NPO at midnight. RCRI of 1 due to high risk procedure, indicating .9% risk of major cardiac event, Symptomatic control with NSAID, opiates, bronchodilators, antitussives & expectorants. Hemodynamically stable, daily labs; encourage oral intake as tolerated. Will transfer if clinical condition worsens (3) Bipolar disease, chronic Current Visit: Yes Status: Chronic Priority: Medium Code(s): F31.9 - BIPOLAR DISORDER, UNSPECIFIED SNOMED Code(s): 66539796 Comment: Continue current outpatient medication regimen with Quetiapine and Lamictal (4) Cough Current Visit: Yes Status: Acute Code(s): R05 - COUGH SNOMED Code(s): 84995105 Comment: Causing significant distress to patient. Patient on Codeine, Benzonatate, and Robitussin. Increased Benzonatate to 600mg daily (5) Thrombocytosis Current Visit: Yes Status: Acute Comment: Most likely due to acute phase reaction. No signs of thrombosis or bleeding, will continue to monitor. (6) DVT prophylaxis Current Visit: Yes Status: Acute Code(s): [id number] - SNOMED Code(s): 853644639 Comment: Heparin subQ Q8H, will hold for surgery. (7) Full code status Current Visit: Yes Status: Acute Code(s): Z78.9 - OTHER SPECIFIED HEALTH STATUS SNOMED Code(s): 807742497 Status and Disposition: Patient admitted inpatient, will discharge when medically able. Attending: Sherrell Ruiz
[2017-01-01] MEDS ORDERED: Trimethobenzamide CAP* 300 MG PO PRN (14:38)
--- NOTE | 2017-01-01 17:51 | PN ---
Progress Note - Progress Note Date of Service: 01/01/17 - Pulm f/u note Note: Pt seen and examined at bedside. Pt looks comfortable, not dyspneic at rest. Reports improvement in breathing. Is off O2 Active Medications Generic Name Dose Route Start Last Admin Trade Name Freq PRN Reason Stop Dose Admin Acetaminophen 650 mg 12/28/16 01:51 12/29/16 19:45 Tylenol Tab* PO 650 mg Q4H PRN Administration FEVER/PAIN Acetaminophen/Codeine Phosphate 1 tab 12/28/16 02:14 01/01/17 17:07 Tylenol/Codeine 30 Mg Tab* PO 1 tab Q4H PRN Administration COUGH Al Hydrox/Mg Hydrox/Simethicone 30 ml 12/28/16 01:51 Maalox Plus* PO Q6H PRN INDIGESTION Albuterol 2.5 mg 12/28/16 19:15 12/31/16 18:40 Ventolin 2.5 Mg/3 Ml Neb.Magdalena* INH 2.5 mg Q2H PRN Administration sob/wheezing Benzonatate 200 mg 01/01/17 14:05 Tessalon Cap* PO Q8H PRN NOT STATED... Docusate Sodium 100 mg 01/01/17 21:00 Colace Cap* PO BID@0600,2100 [facility] Guaifenesin/Dextromethorphan 10 ml 12/28/16 14:39 01/01/17 17:07 Robitussin Dm* PO 10 ml Q4H PRN Administration COUGH Heparin Sodium (Porcine) 5,000 units 12/28/16 06:00 01/01/17 14:23 Heparin Vial(*) SUBCUT 5,000 units Q8HR [facility] Administration Hydromorphone HCl 1 mg 12/30/16 07:10 01/01/17 15:54 Dilaudid Inj* IV SLOW PU 1 mg Q4H PRN Administration chest pain Sodium Chloride 1,000 mls @ 125 mls/hr 12/28/16 02:00 01/01/17 09:17 Ns 0.9% 1000 Ml* IV 125 mls/hr PER RATE [facility] Administration Ceftriaxone Sodium 1,000 mg/ 50 mls @ 200 mls/hr 12/28/16 20:00 12/31/16 20: 21 Sodium Chloride IVPB 200 mls/hr Q24H [facility] Administration Metronidazole/Sodium Chloride 500 mg in 100 mls @ 100 mls/hr 12/28/16 20:00 01/01/17 08:58 Flagyl 500 Mg Ivpb* IVPB 100 mls/hr Q12H [facility] Administration Ketorolac Tromethamine 30 mg 12/30/16 07:09 01/01/17 15:09 Toradol Inj* IV PUSH 30 mg Q6H PRN Administration PAIN Lamotrigine 200 mg 01/02/17 06:00 Lamictal Tab(*) PO DAILY@0600 [facility] Lidocaine 1 patch 12/31/16 11:00 01/01/17 09:00 Lidoderm 5% Patch* TRANSDERM 1 patch DAILY [facility] Administration Magnesium Hydroxide 30 ml 12/28/16 01:51 Milk Of Magnesia Liq* PO Q4H PRN CONSTIPATION Morphine Sulfate 4 mg 12/28/16 14:39 01/01/17 14:30 Morphine Inj (Syringe)* IV 4 mg Q4H PRN Administration PAIN Oxycodone/Acetaminophen 1 tab 12/28/16 01:51 12/28/16 13:41 Percocet 5/325 Tab* PO 1 tab Q4H PRN Administration Pain Pharmacy Profile Note 1 note 12/31/16 21:00 12/31/16 20:41 Lidocaine Patch Remove* N/A 1 note [facility] Administration Phenol/Menthol 1 spray 12/31/16 10:49 01/01/17 14:30 Chloroseptic Throat [place]* MT 1 spray TID PRN Administration SORE THROAT Quetiapine Fumarate 100 mg 12/28/16 21:00 12/31/16 20:22 Seroquel Xr Tab* PO Not Given BEDTIME [facility] Throat Lozenges 1 dalia 12/28/16 04:34 01/01/17 08:59 Chloraseptic Dalia* PO 1 dalia Q6H PRN Administration SORE THROAT Trimethobenzamide HCl 300 mg 01/01/17 14:38 01/01/17 15:16 Tigan Cap* PO 300 mg Q6H PRN Administration NAUSEA Vital Signs Temp Pulse Resp BP Pulse Ox 98.4 F 102 18 136/82 97 01/01/17 11:25 01/01/17 11:25 01/01/17 17:07 01/01/17 11:25 01/01/17 11:25 O/E: Pt in NAD HEENT: PERRLA, no JVD Lunds: Diminished air entry at bases, R>l, no wheeze CVS: S1, S2+ Abd: Soft, BS+ Ext: No edema Neuro : No focal defecits Laboratory Results - last 24 hr 12/29/16 12/29/16 01/01/17 14:30 14:30 06:42 WBC 12.9 H RBC 3.32 L Hgb 10.1 L Hct 30 L MCV 89 MCH 31 MCHC 34 RDW 14 Plt Count 824 H D MPV 6 L Neut % (Auto) 74.0 Lymph % (Auto) 12.0 L [place] % (Auto) 10.0 H Eos % (Auto) 3.7 Baso % (Auto) 0.3 Absolute Neuts (auto) 9.5 H Absolute Lymphs (auto) 1.5 Absolute Monos (auto) 1.3 H Absolute Eos (auto) 0.5 Absolute Basos (auto) 0 Absolute Nucleated RBC 0.01 Nucleated RBC % 0.1 Sodium Potassium Chloride Carbon Dioxide Anion Gap BUN Creatinine Est GFR ( Amer) Est GFR (Non-Af Amer) BUN/Creatinine Ratio Glucose Calcium Phosphorus Magnesium Fluid Cell Count Rvw By HIV 1&2 Antibody 01/01/17 01/01/17 06:42 06:42 WBC RBC Hgb Hct MCV MCH MCHC RDW Plt Count MPV Neut % (Auto) Lymph % (Auto) [place] % (Auto) Eos % (Auto) Baso % (Auto) Absolute Neuts (auto) Absolute Lymphs (auto) Absolute Monos (auto) Absolute Eos (auto) Absolute Basos (auto) Absolute Nucleated RBC Nucleated RBC % Sodium 137 Potassium 3.4 L Chloride 105 Carbon Dioxide 26 Anion Gap 6 BUN 5 L Creatinine 0.60 L Est GFR ( Amer) 190.9 Est GFR (Non-Af Amer) 148.5 BUN/Creatinine Ratio 8.3 Glucose 105 H Calcium 8.0 L Phosphorus 2.9 Magnesium 2.1 Fluid Cell Count Rvw By HIV 1&2 Antibody Nonreactive I/R: 41 y o m with lung abscess, loculated effusion with suggestion of empyema on abx, cx from pleural fluid growing Strep likely from dental source Pt with slight clinical improvement Is off O2 Was seen by Dr Al, scheduled for VATS in am c/w abx ID f/u noted, will need long course of abx affter VATS
[2017-01-01] MEDS: cefTRIAXone VIAL(*) 1,000 MG in NS 0.9% 50 ML* 50 ML IVPB SCH (20:08)
[2017-01-01] MEDS: QUEtiapine XR TAB* 50 MG PO SCH (21:17)
[2017-01-01] MEDS: Lidocaine Patch REMOVE* 1 NOTE MISC SCH (21:35)
[2017-01-02] MEDS: HYDROmorphone INJ* 1 MG/ML CARPUJECT SYRINGE IV SLOW PU PRN ×10 (00:26→22:56)
[2017-01-02] MEDS: Acetaminop/Codeine 30 MG TAB* 1 TAB (300 MG/30 MG) PO PRN ×2 (01:53→06:55)
[2017-01-02] MEDS: GuaiFENesin DM* 5 ML UDC PO PRN ×2 (01:53→05:55)
[2017-01-02] MEDS: Benzonatate CAP* 100 MG PO PRN ×3 (01:53→23:25)
[2017-01-02] MEDS: Morphine INJ* 4 MG/ML 1 ML CARPUJECT IV PRN ×2 (02:52→07:50)
[2017-01-02] MEDS: Benzocaine/Menthol LOZ* 1 LOZENGE PO PRN ×2 (03:32→22:08)
[2017-01-02] MEDS: Ketorolac INJ* 30 MG/ML 1 ML VIAL IV PUSH PRN ×2 (03:32→22:05)
[2017-01-02] MEDS: Albuterol 2.5 MG/3 ML NEB.SOL* (0.083%) INH PRN (03:35)
[2017-01-02] MEDS: Phenol 1.4% Spray* 177 ML BTL MT PRN ×2 (04:31→20:51)
[2017-01-02] MEDS: NS 0.9% 1000 ML* 1,000 ML IV SCH (05:08)
[2017-01-02] MEDS: lamoTRIgine TAB(*) 100 MG PO SCH (05:55)
[2017-01-02] MEDS: Heparin VIAL(*) 5000 UNITS/ML VIAL (FIVE THOUSAND) SUBCUT SCH ×3 (05:56→22:00)
[2017-01-02] MEDS: Docusate CAP* 100 MG PO SCH ×2 (06:00→22:00)
[2017-01-02 06:46] LABS: Albumin 2.9 g/dL (3.2-5.2); BUN/Creatinine Ratio 6.6 (8-20); Calcium 8.3 mg/dL (8.6-10.3); EGFR African American 187.3 (>60); EGFR Non-African American 145.7 (>60); Globulin 3.8 g/dL (2-4); Potassium 3.2 mmol/L (3.5-5.0); Total Bilirubin 0.4 mg/dL (0.2-1.0); Total Protein 6.7 g/dL (6.4-8.9)
[2017-01-02] MEDS: metroNIDAZOLE IV 500 MG/100ML* 500 MG/100 ML BAG IVPB SCH ×2 (07:51→21:26)
[2017-01-02] MEDS: Lidocaine PATCH 5%* 1 PATCH TRANSDERM SCH (07:51)
[2017-01-02 08:08] LABS: Hematocrit 31 % (42-52); Hemoglobin 10.5 g/dl (14.0-18.0); Mean Corpuscular HGB Conc 33 g/dl (31-36); Mean Corpuscular Hemoglobin 30 pg (27-31); Mean Corpuscular Volume 89 fL (80-94); Mean Platelet Volume 6 um3 (7.4-10.4); Red Blood Count 3.53 10^6/ul (4.0-5.4); Red Cell Distribution Width 14 % (10.5-15); White Blood Count 15.2 10^3/ul (3.5-10.8)
[2017-01-02 09:47] LABS: Glucose, BF 402 mg/dL
--- NOTE | 2017-01-02 11:40 | PN ---
Subjective Date of Service: 01/02/17 Interval History: Patient has no acute complaints overnight. Patient states that he has been unable to control his cough and that he noticed no difference with the increase in the Tessalon dose. Patient states that his throat and side pain have both increased due to coughing. Patient continues to produce copious green sputum without blood. Patient is scheduled for VATS today at Noon per Dr Gaston. Family History: Unchanged from Admission Social History: Unchanged from Admission Past Medical History: Unchanged from Admission Objective Active Medications: Acetaminophen (Tylenol Tab*) 650 mg PO Q4H PRN PRN Reason: FEVER/PAIN Last Admin: 12/29/16 19:45 Dose: 650 mg Acetaminophen/Codeine Phosphate (Tylenol/Codeine 30 Mg Tab*) 1 tab PO Q4H PRN PRN Reason: COUGH Last Admin: 01/02/17 06:55 Dose: 1 tab Al Hydrox/Mg Hydrox/Simethicone (Maalox Plus*) 30 ml PO Q6H PRN PRN Reason: INDIGESTION Albuterol (Ventolin 2.5 Mg/3 Ml Neb.Magdalena*) 2.5 mg INH Q2H PRN PRN Reason: sob/wheezing Last Admin: 01/02/17 03:35 Dose: 2.5 mg Benzonatate (Tessalon Cap*) 200 mg PO Q8H PRN PRN Reason: NOT STATED... Last Admin: 01/02/17 05:55 Dose: 200 mg Docusate Sodium (Colace Cap*) 100 mg PO BID@0600,2100 [facility] Last Admin: 01/02/17 06:00 Dose: 100 mg Guaifenesin/Dextromethorphan (Robitussin Dm*) 10 ml PO Q4H PRN PRN Reason: COUGH Last Admin: 01/02/17 05:55 Dose: 10 ml Heparin Sodium (Porcine) (Heparin Vial(*)) 5,000 units SUBCUT Q8HR [facility] Last Admin: 01/02/17 05:56 Dose: 5,000 units Hydromorphone HCl (Dilaudid Inj*) 1 mg IV SLOW PU Q3H PRN PRN Reason: chest pain Last Admin: 01/02/17 10:59 Dose: 1 mg Sodium Chloride (Ns 0.9% 1000 Ml*) 1,000 mls @ 125 mls/hr IV PER RATE [facility] Last Admin: 01/02/17 05:08 Dose: 125 mls/hr Ceftriaxone Sodium 1,000 mg/ (Sodium Chloride) 50 mls @ 200 mls/hr IVPB Q24H [facility] Last Admin: 01/01/17 20:08 Dose: 200 mls/hr Metronidazole/Sodium Chloride (Flagyl 500 Mg Ivpb*) 500 mg in 100 mls @ 100 mls /hr IVPB Q12H [facility] Last Admin: 01/02/17 07:51 Dose: 100 mls/hr Ketorolac Tromethamine (Toradol Inj*) 30 mg IV PUSH Q6H PRN PRN Reason: PAIN Last Admin: 01/02/17 03:32 Dose: 30 mg Lamotrigine (Lamictal Tab(*)) 200 mg PO DAILY@0600 [facility] Last Admin: 01/02/17 05:55 Dose: 200 mg Lidocaine (Lidoderm 5% Patch*) 1 patch TRANSDERM DAILY [facility] Last Admin: 01/02/17 07:51 Dose: 1 patch Magnesium Hydroxide (Milk Of Magnhernandez Liq*) 30 ml PO Q4H PRN PRN Reason: CONSTIPATION Morphine Sulfate (Morphine Inj (Syringe)*) 4 mg IV Q4H PRN PRN Reason: PAIN Last Admin: 01/02/17 07:50 Dose: 4 mg Oxycodone/Acetaminophen (Percocet 5/325 Tab*) 1 tab PO Q4H PRN PRN Reason: Pain Last Admin: 12/28/16 13:41 Dose: 1 tab Pharmacy Profile Note (Lidocaine Patch Remove*) 1 note N/A 2100 [facility] Last Admin: 01/01/17 21:35 Dose: 1 note Phenol/Menthol (Chloroseptic Throat [place]*) 1 spray MT TID PRN PRN Reason: SORE THROAT Last Admin: 01/02/17 04:31 Dose: 1 spray Quetiapine Fumarate (Seroquel Xr Tab*) 100 mg PO BEDTIME [facility] Last Admin: 01/01/17 21:17 Dose: Not Given Throat Lozenges (Chloraseptic Dalia*) 1 dalia PO Q6H PRN PRN Reason: SORE THROAT Last Admin: 01/02/17 03:32 Dose: 1 dalia Trimethobenzamide HCl (Tigan Cap*) 300 mg PO Q6H PRN PRN Reason: NAUSEA Last Admin: 01/01/17 15:16 Dose: 300 mg Vital Signs 01/01/17 01/01/17 01/01/17 11:44 12:44 13:16 Temperature Pulse Rate Respiratory 18 18 20 Rate Blood Pressure (mmHg) O2 Sat by Pulse Oximetry 01/01/17 01/01/17 01/01/17 14:30 15:16 15:30 Temperature Pulse Rate Respiratory 18 18 18 Rate Blood Pressure (mmHg) O2 Sat by Pulse Oximetry 01/01/17 01/01/17 01/01/17 15:54 16:10 17:07 Temperature 99.4 F Pulse Rate 109 Respiratory 18 22 18 Rate Blood Pressure 149/88 (mmHg) O2 Sat by Pulse 98 Oximetry 01/01/17 01/01/17 01/01/17 18:51 19:23 19:51 Temperature 98.7 F Pulse Rate 98 Respiratory 16 20 16 Rate Blood Pressure 136/84 (mmHg) O2 Sat by Pulse 99 Oximetry 01/01/17 01/01/17 01/01/17 20:00 20:08 21:08 Temperature Pulse Rate Respiratory 18 16 18 Rate Blood Pressure (mmHg) O2 Sat by Pulse Oximetry 01/01/17 01/01/17 01/01/17 21:29 22:52 23:29 Temperature Pulse Rate Respiratory 16 18 16 Rate Blood Pressure (mmHg) O2 Sat by Pulse Oximetry 01/01/17 01/02/17 01/02/17 23:50 00:26 01:26 Temperature 98.3 F Pulse Rate 90 Respiratory 16 18 18 Rate Blood Pressure 140/79 (mmHg) O2 Sat by Pulse 97 Oximetry 01/02/17 01/02/17 01/02/17 01:53 02:52 03:53 Temperature 98.7 F Pulse Rate 102 Respiratory 18 18 20 Rate Blood Pressure 149/76 (mmHg) O2 Sat by Pulse 97 Oximetry 01/02/17 01/02/17 01/02/17 04:29 05:29 06:55 Temperature Pulse Rate Respiratory 18 16 18 Rate Blood Pressure (mmHg) O2 Sat by Pulse Oximetry 01/02/17 01/02/17 01/02/17 07:22 07:50 08:02 Temperature 98.1 F Pulse Rate 88 Respiratory 23 16 16 Rate Blood Pressure 128/74 (mmHg) O2 Sat by Pulse 94 Oximetry 01/02/17 01/02/17 09:02 10:59 Temperature Pulse Rate Respiratory 20 22 Rate Blood Pressure (mmHg) O2 Sat by Pulse Oximetry Oxygen Devices in Use Now: None Appearance: Patient is a 41yo male who appears stated age who is sitting in the bed without dyspnea but with frequent coughing. Eyes: No Scleral Icterus, PERRLA Ears/Nose/Mouth/Throat: NL Teeth, Lips, Gums, Mucous Membranes Moist, - - Pharyngeal erythema without ulceration or exudate. Small amount of green mucus in back of throat. Neck: NL Appearance and Movements; NL JVP, Trachea Midline Respiratory: Symmetrical Chest Expansion and Respiratory Effort, - - Left Lung CTA. R lung has rhonchi and wheezing throughout. Good air exchange B/L. Cardiovascular: NL Sounds; No Murmurs; No JVD, RRR, No Edema Abdominal: No Hepatosplenomegaly, - - NL Sounds in 4 quadrants. Tenderness to palpation in RUQ. Lymphatic: No Cervical Adenopathy Extremities: No Edema, No Clubbing, Cyanosis Skin: No Rash or Ulcers, - - Clean and dry bandage on back. Diaphoretic Neurological: Alert and Oriented x 3, NL Muscle Strength and Tone Result Diagrams: 01/02/17 07:49 01/02/17 06:23 Additional Lab and Data: . 12/29/16 12/29/16 12/29/16 14:30 14:30 14:30 WBC RBC Hgb Hct MCV MCH MCHC RDW Plt Count MPV Neut % (Auto) Lymph % (Auto) [place] % (Auto) Eos % (Auto) Baso % (Auto) Absolute Neuts (auto) Absolute Lymphs (auto) Absolute Monos (auto) Absolute Eos (auto) Absolute Basos (auto) Absolute Nucleated RBC Nucleated RBC % Sodium Potassium Chloride Carbon Dioxide Anion Gap BUN Creatinine Est GFR ( Amer) Est GFR (Non-Af Amer) BUN/Creatinine Ratio Glucose Calcium Phosphorus Magnesium Total Bilirubin AST ALT Alkaline Phosphatase Total Protein Albumin Globulin Albumin/Globulin Ratio Fluid Source Pleural fluid Pleural fluid Pleural fluid Fluid Volume Not Reportable Fluid Color Yellow Fluid Appearance Cloudy Fluid WBC 849713 Fluid RBC 155768 Fluid Tot Cell Count 100 Fluid Neutrophils 90 Fluid Band Neutrophils 10 Fluid Cell Count Rvw By Fluid Glucose Fluid Total Protein 2.5 12/29/16 12/29/16 12/29/16 14:30 14:30 14:30 WBC RBC Hgb Hct MCV MCH MCHC RDW Plt Count MPV Neut % (Auto) Lymph % (Auto) [place] % (Auto) Eos % (Auto) Baso % (Auto) Absolute Neuts (auto) Absolute Lymphs (auto) Absolute Monos (auto) Absolute Eos (auto) Absolute Basos (auto) Absolute Nucleated RBC Nucleated RBC % Sodium Potassium Chloride Carbon Dioxide Anion Gap BUN Creatinine Est GFR ( Amer) Est GFR (Non-Af Amer) BUN/Creatinine Ratio Glucose Calcium Phosphorus Magnesium Total Bilirubin AST ALT Alkaline Phosphatase Total Protein Albumin Globulin Albumin/Globulin Ratio Fluid Source Pleural fluid Pleural fluid Pleural fluid Fluid Volume Not Reportable Fluid Color Red Fluid Appearance Cloudy Fluid WBC 961802 Fluid RBC 191999 Fluid Tot Cell Count 100 Fluid Neutrophils 91 Fluid Band Neutrophils 9 Fluid Cell Count Rvw By Fluid Glucose 332 Fluid Total Protein 12/29/16 12/30/16 12/30/16 14:30 08:43 08:43 WBC 10.2 RBC 3.22 L Hgb 9.9 L Hct 29 L MCV 89 MCH 31 MCHC 34 RDW 14 Plt Count 554 H MPV 6 L Neut % (Auto) 76.0 Lymph % (Auto) 11.3 L [place] % (Auto) 9.3 H Eos % (Auto) 2.5 Baso % (Auto) 0.9 Absolute Neuts (auto) 7.7 Absolute Lymphs (auto) 1.1 Absolute Monos (auto) 0.9 H Absolute Eos (auto) 0.3 Absolute Basos (auto) 0.1 Absolute Nucleated RBC 0 Nucleated RBC % 0 Sodium 136 Potassium 3.5 Chloride 103 Carbon Dioxide 27 Anion Gap 6 BUN 9 Creatinine 0.55 L Est GFR ( Amer) 211.1 Est GFR (Non-Af Amer) 164.2 BUN/Creatinine Ratio 16.4 Glucose 145 H Calcium 7.4 L Phosphorus Magnesium Total Bilirubin 0.50 AST 9 L ALT 10 Alkaline Phosphatase 118 H Total Protein 5.4 L Albumin 2.5 L Globulin 2.9 Albumin/Globulin Ratio 0.9 L Fluid Source Pleural fluid Fluid Volume Fluid Color Fluid Appearance Fluid WBC Fluid RBC Fluid Tot Cell Count Fluid Neutrophils Fluid Band Neutrophils Fluid Cell Count Rvw By Fluid Glucose Fluid Total Protein 3.0 12/31/16 12/31/16 01/01/17 08:20 08:20 06:42 WBC 13.3 H 12.9 H RBC 3.29 L 3.32 L Hgb 9.8 L 10.1 L Hct 29 L 30 L MCV 89 89 MCH 30 31 MCHC 33 34 RDW 14 14 Plt Count 724 H D 824 H D MPV 6 L 6 L Neut % (Auto) 75.7 74.0 Lymph % (Auto) 11.3 L 12.0 L [place] % (Auto) 9.7 H 10.0 H Eos % (Auto) 3.0 3.7 Baso % (Auto) 0.3 0.3 Absolute Neuts (auto) 10.1 H 9.5 H Absolute Lymphs (auto) 1.5 1.5 Absolute Monos (auto) 1.3 H 1.3 H Absolute Eos (auto) 0.4 0.5 Absolute Basos (auto) 0 0 Absolute Nucleated RBC 0 0.01 Nucleated RBC % 0 0.1 Sodium 135 Potassium 3.3 L Chloride 104 Carbon Dioxide 24 Anion Gap 7 BUN 8 Creatinine 0.72 Est GFR ( Amer) 154.7 Est GFR (Non-Af Amer) 120.3 BUN/Creatinine Ratio 11.1 Glucose 177 H Calcium 7.7 L Phosphorus 2.4 L Magnesium 2.0 Total Bilirubin AST ALT Alkaline Phosphatase Total Protein Albumin Globulin Albumin/Globulin Ratio Fluid Source Fluid Volume Fluid Color Fluid Appearance Fluid WBC Fluid RBC Fluid Tot Cell Count Fluid Neutrophils Fluid Band Neutrophils Fluid Cell Count Rvw By Fluid Glucose Fluid Total Protein 01/01/17 06:42 WBC RBC Hgb Hct MCV MCH MCHC RDW Plt Count MPV Neut % (Auto) Lymph % (Auto) [place] % (Auto) Eos % (Auto) Baso % (Auto) Absolute Neuts (auto) Absolute Lymphs (auto) Absolute Monos (auto) Absolute Eos (auto) Absolute Basos (auto) Absolute Nucleated RBC Nucleated RBC % Sodium 137 Potassium 3.4 L Chloride 105 Carbon Dioxide 26 Anion Gap 6 BUN 5 L Creatinine 0.60 L Est GFR ( Amer) 190.9 Est GFR (Non-Af Amer) 148.5 BUN/Creatinine Ratio 8.3 Glucose 105 H Calcium 8.0 L Phosphorus 2.9 Magnesium 2.1 Total Bilirubin AST ALT Alkaline Phosphatase Total Protein Albumin Globulin Albumin/Globulin Ratio Fluid Source Fluid Volume Fluid Color Fluid Appearance Fluid WBC Fluid RBC Fluid Tot Cell Count Fluid Neutrophils Fluid Band Neutrophils Fluid Cell Count Rvw By Fluid Glucose Fluid Total Protein 12/29/16 12/29/1612/29/17 14:30 14:30 14:30 WBC RBC Hgb Hct MCV MCH MCHC RDW Plt Count MPV Neut % (Auto) Lymph % (Auto) [place] % (Auto) Eos % (Auto) Baso % (Auto) Absolute Neuts (auto) Absolute Lymphs (auto) Absolute Monos (auto) Absolute Eos (auto) Absolute Basos (auto) Absolute Nucleated RBC Nucleated RBC % Sodium Potassium Chloride Carbon Dioxide Anion Gap BUN Creatinine Est GFR ( Amer) Est GFR (Non-Af Amer) BUN/Creatinine Ratio Glucose Calcium Phosphorus Magnesium Total Bilirubin AST ALT Alkaline Phosphatase Total Protein Albumin Globulin Albumin/Globulin Ratio Fluid Source Pleural fluid Pleural fluid Fluid Cell Count Rvw By Fluid Glucose Fluid Total Protein 2.5 HIV 1&2 Antibody 12/29/16 12/29/16 12/29/16 14:30 14:30 14:30 WBC RBC Hgb Hct MCV MCH MCHC RDW Plt Count MPV Neut % (Auto) Lymph % (Auto) [place] % (Auto) Eos % (Auto) Baso % (Auto) Absolute Neuts (auto) Absolute Lymphs (auto) Absolute Monos (auto) Absolute Eos (auto) Absolute Basos (auto) Absolute Nucleated RBC Nucleated RBC % Sodium Potassium Chloride Carbon Dioxide Anion Gap BUN Creatinine Est GFR ( Amer) Est GFR (Non-Af Amer) BUN/Creatinine Ratio Glucose Calcium Phosphorus Magnesium Total Bilirubin AST ALT Alkaline Phosphatase Total Protein Albumin Globulin Albumin/Globulin Ratio Fluid Source Pleural fluid Pleural fluid Fluid Cell Count Rvw By Fluid Glucose 332 Fluid Total Protein HIV 1&2 Antibody 12/29/16 12/29/16 12/31/16 14:30 14:30 08:20 WBC 13.3 H RBC 3.29 L Hgb 9.8 L Hct 29 L MCV 89 MCH 30 MCHC 33 RDW 14 Plt Count 724 H D MPV 6 L Neut % (Auto) 75.7 Lymph % (Auto) 11.3 L [place] % (Auto) 9.7 H Eos % (Auto) 3.0 Baso % (Auto) 0.3 Absolute Neuts (auto) 10.1 H Absolute Lymphs (auto) 1.5 Absolute Monos (auto) 1.3 H Absolute Eos (auto) 0.4 Absolute Basos (auto) 0 Absolute Nucleated RBC 0 Nucleated RBC % 0 Sodium Potassium Chloride Carbon Dioxide Anion Gap BUN Creatinine Est GFR ( Amer) Est GFR (Non-Af Amer) BUN/Creatinine Ratio Glucose Calcium Phosphorus Magnesium Total Bilirubin AST ALT Alkaline Phosphatase Total Protein Albumin Globulin Albumin/Globulin Ratio Fluid Source Pleural fluid Pleural fluid Fluid Cell Count Rvw By Fluid Glucose 402 Fluid Total Protein 3.0 HIV 1&2 Antibody 12/31/16 01/01/17 01/01/17 08:20 06:42 06:42 WBC 12.9 H RBC 3.32 L Hgb 10.1 L Hct 30 L MCV 89 MCH 31 MCHC 34 RDW 14 Plt Count 824 H D MPV 6 L Neut % (Auto) 74.0 Lymph % (Auto) 12.0 L [place] % (Auto) 10.0 H Eos % (Auto) 3.7 Baso % (Auto) 0.3 Absolute Neuts (auto) 9.5 H Absolute Lymphs (auto) 1.5 Absolute Monos (auto) 1.3 H Absolute Eos (auto) 0.5 Absolute Basos (auto) 0 Absolute Nucleated RBC 0.01 Nucleated RBC % 0.1 Sodium 135 137 Potassium 3.3 L 3.4 L Chloride 104 105 Carbon Dioxide 24 26 Anion Gap 7 6 BUN 8 5 L Creatinine 0.72 0.60 L Est GFR ( Amer) 154.7 190.9 Est GFR (Non-Af Amer) 120.3 148.5 BUN/Creatinine Ratio 11.1 8.3 Glucose 177 H 105 H Calcium 7.7 L 8.0 L Phosphorus 2.4 L 2.9 Magnesium 2.0 2.1 Total Bilirubin AST ALT Alkaline Phosphatase Total Protein Albumin Globulin Albumin/Globulin Ratio Fluid Source Fluid Cell Count Rvw By Fluid Glucose Fluid Total Protein HIV 1&2 Antibody 01/01/17 01/02/17 01/02/17 06:42 06:23 07:49 WBC 15.2 H RBC 3.53 L Hgb 10.5 L Hct 31 L MCV 89 MCH 30 MCHC 33 RDW 14 Plt Count 943 H D MPV 6 L Neut % (Auto) 80.7 Lymph % (Auto) 8.8 L [place] % (Auto) 8.1 Eos % (Auto) 1.8 Baso % (Auto) 0.6 Absolute Neuts (auto) 12.2 H Absolute Lymphs (auto) 1.3 Absolute Monos (auto) 1.2 H Absolute Eos (auto) 0.3 Absolute Basos (auto) 0.1 Absolute Nucleated RBC 0 Nucleated RBC % 0 Sodium 133 Potassium 3.2 L Chloride 100 L Carbon Dioxide 27 Anion Gap 6 BUN 4 L Creatinine 0.61 L Est GFR ( Amer) 187.3 Est GFR (Non-Af Amer) 145.7 BUN/Creatinine Ratio 6.6 L Glucose 136 H Calcium 8.3 L Phosphorus Magnesium Total Bilirubin 0.40 AST 20 ALT 21 Alkaline Phosphatase 503 H Total Protein 6.7 Albumin 2.9 L Globulin 3.8 Albumin/Globulin Ratio 0.8 L Fluid Source Fluid Cell Count Rvw By Fluid Glucose Fluid Total Protein HIV 1&2 Antibody Nonreactive Microbiology and Other Data: Microbiology 12/29/16 14:30 Gram Stain - Final Pleural Fluid 12/29/16 14:30 Gram Stain - Final Pleural Fluid 12/28/16 20:20 Gram Stain - Final Sputum Expectorated 12/28/16 21:45 Nasal Screen MRSA (PCR)(YASSINE) - Final Nasal Mrsa Negative 12/28/16 04:30 Legionella Urinary Antigen - Final Urine Negative Legionella Streptococcus pneumoniae Ag Screen - Final Negative S. pneumo Antigen Assess/Plan/Problems-Billing . Assessment: Patient is a 41yo male with a lung abscess with associated empyema who is status post IR drainage and is planned to go to have a VATS procedure today for definitive surgical treatment of this abscess. Patient will remain inpatient at this time for pain control and IV antibiotics. - Patient Problems (1) Abscess, lung/mediastinum Current Visit: Yes Status: Acute Priority: High Code(s): J85.2 - ABSCESS OF LUNG WITHOUT PNEUMONIA; J85.3 - ABSCESS OF MEDIASTINUM SNOMED Code(s): 471892570 Comment: Continue Ceftriaxone / Flagyl per ID Morphine and dilaudid for pain control Patient currently on RA, O2 PRN, no signs of fatigue. VATS procedure today. (2) Empyema of pleural space Current Visit: Yes Status: Acute Priority: High Code(s): J86.9 - PYOTHORAX WITHOUT FISTULA SNOMED Code(s): 70139190 Comment: IV Abx as above Symptomatic control with NSAID, opiates, bronchodilators, antitussives & expectorants. Hemodynamically stable, daily labs; encourage oral intake as tolerated. Will transfer if clinical condition worsens (3) Bipolar disease, chronic Current Visit: Yes Status: Chronic Priority: Medium Code(s): F31.9 - BIPOLAR DISORDER, UNSPECIFIED SNOMED Code(s): 02916492 Comment: Continue current outpatient medication regimen with Quetiapine and Lamictal (4) Cough Current Visit: Yes Status: Acute Code(s): R05 - COUGH SNOMED Code(s): 64539722 Comment: Causing significant distress to patient. Patient on Codeine, Benzonatate, and Robitussin. No change in symptoms with increased Benzonatate dose. (5) Thrombocytosis Current Visit: Yes Status: Acute Comment: Continuing to increase. Most likely due to acute phase reaction. No signs of thrombosis or bleeding, will continue to monitor. (6) DVT prophylaxis Current Visit: Yes Status: Acute Code(s): OBG6896 - SNOMED Code(s): 360658539 Comment: Heparin subQ Q8H, will continue through surgery per Dr Gaston. (7) Full code status Current Visit: Yes Status: Acute Code(s): Z78.9 - OTHER SPECIFIED HEALTH STATUS SNOMED Code(s): 258851878 Status and Disposition: Patient admitted inpatient, will discharge when medically able.
[2017-01-02] MEDS ORDERED: Propofol* 10 MG/ML 20 ML BTL IV PUSH ONE (12:06)
[2017-01-02] MEDS ORDERED: Lidocaine 2% PF * 5 ML VIAL ONE (12:06)
[2017-01-02] MEDS ORDERED: Rocuronium* 10 MG/ML VIAL ONE (12:07)
[2017-01-02] MEDS ORDERED: fentaNYL* 50 MCG/ML 2 ML VIAL (100 MCG VIAL) ONE ×3 (12:30→16:50)
[2017-01-02] MEDS ORDERED: Bupivacaine 0.25% SDV* 30 ML ONE (13:08)
[2017-01-02] MEDS ORDERED: Neostigmine Methylsulfate* 2 MG/2 ML SYRINGE ONE (14:11)
[2017-01-02] MEDS ORDERED: Atracurium* 10 MG/ML 10 ML VIAL ONE (14:11)
[2017-01-02] MEDS ORDERED: Glycopyrrolate IV* 0.2 MG/ML 1 ML VIAL ONE (14:11)
[2017-01-02] MEDS: fentaNYL* 50 MCG/ML 2 ML VIAL (100 MCG VIAL) IV PRN ×2 (15:20→16:51)
--- NOTE | 2017-01-02 16:28 | RAD ---
Indication: Status post thoracoscopy. Single frontal view of the chest performed at 1535 hours was reviewed. Comparison is made with previous exam dated December 28, 2016. Right chest tube is in place. Small right pneumothorax is noted. Left lung field is clear. Infiltrate is noted in the right lung base. IMPRESSION: Right pneumothorax with postoperative changes. Right chest tube in place.
[2017-01-02] MEDS ORDERED: Potassium Chlor TAB* 20 MEQ TAB.ER PO ONE (18:12)
[2017-01-02] MEDS: Acetaminophen TAB* 325 MG PO PRN (19:16)
[2017-01-02] MEDS: cefTRIAXone VIAL(*) 1,000 MG in NS 0.9% 50 ML* 50 ML IVPB SCH (20:48)
[2017-01-02] MEDS ORDERED: Potassium Chlor TAB* 20 MEQ TAB.ER PO SCH (21:00)
[2017-01-02] MEDS: QUEtiapine XR TAB* 50 MG PO SCH (21:37)
[2017-01-02] MEDS: NS 0.9% w/ 40 Meq KCL 1000 ML* 1,000 ML IV SCH (21:59)
[2017-01-02] MEDS: Lidocaine Patch REMOVE* 1 NOTE MISC SCH (22:09)
[2017-01-03] MEDS: HYDROmorphone INJ* 1 MG/ML CARPUJECT SYRINGE IV SLOW PU PRN ×13 (00:26→23:21)
[2017-01-03] MEDS: Acetaminop/Codeine 30 MG TAB* 1 TAB (300 MG/30 MG) PO PRN ×2 (00:26→05:19)
[2017-01-03] MEDS: QUEtiapine XR TAB* 50 MG PO SCH ×2 (02:12→21:46)
--- NOTE | 2017-01-03 02:59 | OP ---
CC: Dr. Mark Gaston; Dr. Sandor Hernández; Dr. Cecilia Boyce; Dr. Iain Carbajal OPERATIVE REPORT: DATE OF OPERATION: 01/02/17 DATE OF : 75 SURGEON: Mark Gaston MD CHILD WELFARE DIRECTOR: None. ANESTHESIOLOGIST: Leoncio Fraser DO ANESTHESIA: General anesthetic, local infiltration. PRE-OP DIAGNOSIS: Right empyema. POST-OP DIAGNOSIS: Right empyema. OPERATIVE PROCEDURE: Right video thoracoscopy with evacuation of empyema and abscess. DESCRIPTION OF PROCEDURE: The patient was supine on the operative table. After adequate general an esthetic, I assisted in placement of the double lumen tube with fiberoptic bronchoscopy. The patien t was then turned to the lateral decubitus position with right chest upward. He was appropriately p added and protected and secured on the table and axillary roll was utilized. The chest was prepped with antiseptic and draped in a sterile fashion. Local infiltrative anesthesia was administered and right lateral chest incision at approximately the 8th interspace was created and the chest space wa s entered. Adhesions were identified and these were taken down bluntly. Two additional cannula sit es, 5 mm in size, 1 anterior, 1 posterior, were placed. The fissure between the upper and middle lo be and between the upper and lower lobes were explored to evacuate any undrained collections. The u pper lobe was mobilized as well to drain the undrained collections. There were various areas of gel atinous debris, which was peeled off and removed. The posteromedial abscess pocket was identified o n CT scan, was able to be identified and entered. It had a thick rind on it, creamy pus was suction ed out, and this pocket was opened widely to allow adequate drainage. It was irrigated well and ewa e fluid was suctioned out. Additional local anesthetic was administered and a [place] chest tube was placed through the larger incision. Sutured the skin with 2-0 Prolene and the small incisions w ere closed with 5-0 Vicryl followed by Steri- Strips. Gauze dressing was placed. He was awakened a nd brought to Recovery in good condition. There were no complications. Drain was [place] chest t ube. Sponge and instrument counts correct. Estimated blood loss 150 mL. Specimen was empyema mater ial. [id number]/[facility] #: [id number]
[2017-01-03] MEDS: oxyCODONE/Acetamin 5/325 MG* TAB PO PRN (03:11)
[2017-01-03] MEDS: Phenol 1.4% Spray* 177 ML BTL MT PRN (03:41)
[2017-01-03 05:13] LABS: Hematocrit 27 % (42-52); Hemoglobin 9.1 g/dl (14.0-18.0); Mean Corpuscular HGB Conc 34 g/dl (31-36); Mean Corpuscular Hemoglobin 30 pg (27-31); Mean Corpuscular Volume 89 fL (80-94); Mean Platelet Volume 6 um3 (7.4-10.4); Red Blood Count 2.98 10^6/ul (4.0-5.4); Red Cell Distribution Width 14 % (10.5-15); White Blood Count 18.5 10^3/ul (3.5-10.8)
[2017-01-03] MEDS: NS 0.9% w/ 40 Meq KCL 1000 ML* 1,000 ML IV SCH (05:14)
[2017-01-03] MEDS: lamoTRIgine TAB(*) 100 MG PO SCH (05:15)
[2017-01-03] MEDS: Heparin VIAL(*) 5000 UNITS/ML VIAL (FIVE THOUSAND) SUBCUT SCH ×3 (05:15→21:45)
[2017-01-03 05:33] LABS: BUN/Creatinine Ratio 6.9 (8-20); Calcium 7.7 mg/dL (8.6-10.3); EGFR African American 198.6 (>60); EGFR Non-African American 154.4 (>60); Potassium 3.6 mmol/L (3.5-5.0)
[2017-01-03] MEDS: Docusate CAP* 100 MG PO SCH ×2 (06:14→23:32)
[2017-01-03] MEDS: Benzocaine/Menthol LOZ* 1 LOZENGE PO PRN (06:18)
[2017-01-03] MEDS: Lidocaine PATCH 5%* 1 PATCH TRANSDERM SCH (07:37)
[2017-01-03] MEDS: metroNIDAZOLE IV 500 MG/100ML* 500 MG/100 ML BAG IVPB SCH ×2 (07:40→21:53)
--- NOTE | 2017-01-03 08:06 | RAD ---
HISTORY: Status post VATS COMPARISONS: January 02, 2017 VIEWS: 1: frontal portable view of the chest at 6:03 AM FINDINGS: LINES AND TUBES: A right-sided chest tube is noted. CARDIOMEDIASTINAL SILHOUETTE: The cardiomediastinal silhouette is normal for portable technique. PLEURA: There is a small right-sided pneumothorax. The pneumothorax component is similar to the previous examination. LUNG PARENCHYMA: There is patchy linear opacification of the right lung base ABDOMEN: The upper abdomen is clear. There is no subphrenic gas. BONES AND SOFT TISSUES: No bone or soft tissue abnormalities are noted. IMPRESSION: 1. RIGHT-SIDED CHEST TUBE WITH SMALL RIGHT HYDROPNEUMOTHORAX. 2. RIGHT BASILAR ATELECTASIS VERSUS CONSOLIDATION
[2017-01-03] MEDS: Ketorolac INJ* 30 MG/ML 1 ML VIAL IV PUSH SCH ×3 (10:26→21:46)
--- NOTE | 2017-01-03 12:31 | PN ---
Subjective Date of Service: 01/03/17 Interval History: Patient returned from surgery yesterday evening. Patient is still in 9/10 pain in his side and 9/10 pain in his throat. Patient complains of no significant additional pain from his side. Patient states that the dilaudid helps with the pain, but states that it makes him drowsy. Patient is producing significant amounts of grossly bloody green sputum. Patient is diaphoretic and feels febrile. Family History: Unchanged from Admission Social History: Unchanged from Admission Past Medical History: Unchanged from Admission Objective Active Medications: Acetaminophen (Tylenol Tab*) 650 mg PO Q4H PRN PRN Reason: FEVER/PAIN Last Admin: 01/02/17 19:16 Dose: 650 mg Al Hydrox/Mg Hydrox/Simethicone (Maalox Plus*) 30 ml PO Q6H PRN PRN Reason: INDIGESTION Albuterol (Ventolin 2.5 Mg/3 Ml Neb.Magdalena*) 2.5 mg INH Q2H PRN PRN Reason: sob/wheezing Last Admin: 01/02/17 03:35 Dose: 2.5 mg Benzonatate (Tessalon Cap*) 200 mg PO Q8H PRN PRN Reason: NOT STATED... Last Admin: 01/02/17 23:25 Dose: 200 mg Docusate Sodium (Colace Cap*) 100 mg PO BID@0600,2100 [facility] Last Admin: 01/03/17 06:14 Dose: 100 mg Guaifenesin/Dextromethorphan (Robitussin Dm*) 10 ml PO Q4H PRN PRN Reason: COUGH Last Admin: 01/02/17 05:55 Dose: 10 ml Heparin Sodium (Porcine) (Heparin Vial(*)) 5,000 units SUBCUT Q8HR [facility] Last Admin: 01/03/17 05:15 Dose: 5,000 units Hydromorphone HCl (Dilaudid Inj*) 1 mg IV SLOW PU Q1H PRN PRN Reason: chest pain Last Admin: 01/03/17 11:12 Dose: 1 mg Ceftriaxone Sodium 1,000 mg/ (Sodium Chloride) 50 mls @ 200 mls/hr IVPB Q24H [facility] Last Admin: 01/02/17 20:48 Dose: 200 mls/hr Metronidazole/Sodium Chloride (Flagyl 500 Mg Ivpb*) 500 mg in 100 mls @ 100 mls /hr IVPB Q12H [facility] Last Admin: 01/03/17 07:40 Dose: 100 mls/hr Potassium Chloride/Sodium Chloride (Ns 0.9% W/ 40 Meq Kcl 1000 Ml*) 1,000 mls @ 150 mls/hr IV PER RATE [facility] Last Admin: 01/03/17 05:14 Dose: 150 mls/hr Ketorolac Tromethamine (Toradol Inj*) 30 mg IV PUSH Q6H [facility] Stop: 01/05/17 08:59 Last Admin: 01/03/17 10:26 Dose: 30 mg Lamotrigine (Lamictal Tab(*)) 200 mg PO DAILY@0600 [facility] Last Admin: 01/03/17 05:15 Dose: 200 mg Lidocaine (Lidoderm 5% Patch*) 1 patch TRANSDERM DAILY [facility] Last Admin: 01/03/17 07:37 Dose: 1 patch Magnesium Hydroxide (Milk Of Magnesia Liq*) 30 ml PO Q4H PRN PRN Reason: CONSTIPATION Oxycodone/Acetaminophen (Percocet 5/325 Tab*) 1 tab PO Q4H PRN PRN Reason: Pain Last Admin: 01/03/17 03:11 Dose: 1 tab Pharmacy Profile Note (Lidocaine Patch Remove*) 1 note N/A 2100 [facility] Last Admin: 01/02/17 22:09 Dose: Not Given Phenol/Menthol (Chloroseptic Throat Prue*) 1 spray MT TID PRN PRN Reason: SORE THROAT Last Admin: 01/03/17 03:41 Dose: 1 spray Quetiapine Fumarate (Seroquel Xr Tab*) 100 mg PO BEDTIME [facility] Last Admin: 01/03/17 02:12 Dose: 100 mg Throat Lozenges (Chloraseptic Dalia*) 1 dalia PO Q6H PRN PRN Reason: SORE THROAT Last Admin: 01/03/17 06:18 Dose: 1 dalia Trimethobenzamide HCl (Tigan Cap*) 300 mg PO Q6H PRN PRN Reason: NAUSEA Last Admin: 01/01/17 15:16 Dose: 300 mg Vital Signs 01/02/17 01/02/17 01/02/17 15:15 15:20 15:25 Temperature 98.1 F Pulse Rate 99 96 97 Respiratory 30 25 29 Rate Blood Pressure 108/83 132/81 146/90 (mmHg) O2 Sat by Pulse 98 97 97 Oximetry 01/02/17 01/02/17 01/02/17 16:51 17:13 17:20 Temperature 100.9 F 100.9 F Pulse Rate 117 117 Respiratory 22 30 30 Rate Blood Pressure 153/89 153/89 (mmHg) O2 Sat by Pulse 97 97 Oximetry 01/02/17 01/02/17 01/02/17 17:27 18:14 18:20 Temperature 100.7 F 100.0 F Pulse Rate 114 Respiratory 30 20 Rate Blood Pressure 144/83 (mmHg) O2 Sat by Pulse 100 Oximetry 01/02/17 01/02/17 01/02/17 18:33 19:08 19:15 Temperature Pulse Rate 117 Respiratory 24 30 Rate Blood Pressure 140/71 (mmHg) O2 Sat by Pulse 98 Oximetry 01/02/17 01/02/17 01/02/17 19:40 19:43 20:48 Temperature 98.9 F Pulse Rate 114 Respiratory 25 24 22 Rate Blood Pressure (mmHg) O2 Sat by Pulse 98 Oximetry 01/02/17 01/02/17 01/02/17 21:27 21:56 22:56 Temperature 97.4 F Pulse Rate 105 Respiratory 20 30 18 Rate Blood Pressure 149/67 (mmHg) O2 Sat by Pulse 100 Oximetry 01/02/17 01/02/17 01/03/17 23:28 23:56 00:26 Temperature 99.7 F Pulse Rate 102 Respiratory 22 22 22 Rate Blood Pressure 123/71 (mmHg) O2 Sat by Pulse 95 Oximetry 01/03/17 01/03/17 01/03/17 01:26 02:27 03:08 Temperature 98.3 F Pulse Rate 98 Respiratory 20 22 18 Rate Blood Pressure 134/78 (mmHg) O2 Sat by Pulse 98 Oximetry 01/03/17 01/03/17 01/03/17 03:11 04:53 05:19 Temperature Pulse Rate Respiratory 20 18 20 Rate Blood Pressure (mmHg) O2 Sat by Pulse Oximetry 01/03/17 01/03/17 01/03/17 06:14 07:14 07:15 Temperature Pulse Rate Respiratory 18 18 18 Rate Blood Pressure (mmHg) O2 Sat by Pulse Oximetry 01/03/17 01/03/17 01/03/17 07:30 07:37 08:00 Temperature 98.4 F Pulse Rate 100 Respiratory 16 18 20 Rate Blood Pressure 127/72 (mmHg) O2 Sat by Pulse 96 96 Oximetry 01/03/17 01/03/17 01/03/17 08:37 08:50 09:50 Temperature Pulse Rate Respiratory 18 22 20 Rate Blood Pressure (mmHg) O2 Sat by Pulse Oximetry 01/03/17 11:12 Temperature Pulse Rate Respiratory 18 Rate Blood Pressure (mmHg) O2 Sat by Pulse Oximetry Oxygen Devices in Use Now: Nasal Cannula Appearance: Patient is a 41yo male who appears stated age sitting in the exam bed with increased work of breathing. Eyes: No Scleral Icterus, PERRLA Ears/Nose/Mouth/Throat: NL Teeth, Lips, Gums, Mucous Membranes Moist, - - Pharynx erythematous without exudate or ulceration. Neck: NL Appearance and Movements; NL JVP, Trachea Midline Respiratory: Symmetrical Chest Expansion and Respiratory Effort, - - Left lung clear to auscultation. Left lung sounds include wheezing and rhonchi in all lung rivero. Exam limited by pain. Water bubbling in chest tube loudly audible in all lung rivero. Cardiovascular: NL Sounds; No Murmurs; No JVD, RRR, No Edema Abdominal: NL Sounds; No Tenderness; No Distention, No Hepatosplenomegaly Lymphatic: No Cervical Adenopathy Skin: No Rash or Ulcers, No Nodules or Sclerosis, - - Chest tube site shows do signs of infection. Bandage on back in place without drainage. Neurological: Alert and Oriented x 3, NL Muscle Strength and Tone Result Diagrams: 01/03/17 04:53 01/03/17 04:53 Additional Lab and Data: . 12/29/16 12/29/16 12/29/16 14:30 14:30 14:30 WBC RBC Hgb Hct MCV MCH MCHC RDW Plt Count MPV Neut % (Auto) Lymph % (Auto) [place] % (Auto) Eos % (Auto) Baso % (Auto) Absolute Neuts (auto) Absolute Lymphs (auto) Absolute Monos (auto) Absolute Eos (auto) Absolute Basos (auto) Absolute Nucleated RBC Nucleated RBC % Sodium Potassium Chloride Carbon Dioxide Anion Gap BUN Creatinine Est GFR ( Amer) Est GFR (Non-Af Amer) BUN/Creatinine Ratio Glucose Calcium Phosphorus Magnesium Total Bilirubin AST ALT Alkaline Phosphatase Total Protein Albumin Globulin Albumin/Globulin Ratio Fluid Source Pleural fluid Pleural fluid Pleural fluid Fluid Volume Not Reportable Fluid Color Yellow Fluid Appearance Cloudy Fluid WBC 429127 Fluid RBC 969282 Fluid Tot Cell Count 100 Fluid Neutrophils 90 Fluid Band Neutrophils 10 Fluid Cell Count Rvw By Fluid Glucose Fluid Total Protein 2.5 12/29/16 12/29/16 12/29/16 14:30 14:30 14:30 WBC RBC Hgb Hct MCV MCH MCHC RDW Plt Count MPV Neut % (Auto) Lymph % (Auto) [place] % (Auto) Eos % (Auto) Baso % (Auto) Absolute Neuts (auto) Absolute Lymphs (auto) Absolute Monos (auto) Absolute Eos (auto) Absolute Basos (auto) Absolute Nucleated RBC Nucleated RBC % Sodium Potassium Chloride Carbon Dioxide Anion Gap BUN Creatinine Est GFR ( Amer) Est GFR (Non-Af Amer) BUN/Creatinine Ratio Glucose Calcium Phosphorus Magnesium Total Bilirubin AST ALT Alkaline Phosphatase Total Protein Albumin Globulin Albumin/Globulin Ratio Fluid Source Pleural fluid Pleural fluid Pleural fluid Fluid Volume Not Reportable Fluid Color Red Fluid Appearance Cloudy Fluid WBC 898238 Fluid RBC 735442 Fluid Tot Cell Count 100 Fluid Neutrophils 91 Fluid Band Neutrophils 9 Fluid Cell Count Rvw By Fluid Glucose 332 Fluid Total Protein 12/29/16 12/30/16 12/30/16 14:30 08:43 08:43 WBC 10.2 RBC 3.22 L Hgb 9.9 L Hct 29 L MCV 89 MCH 31 MCHC 34 RDW 14 Plt Count 554 H MPV 6 L Neut % (Auto) 76.0 Lymph % (Auto) 11.3 L [place] % (Auto) 9.3 H Eos % (Auto) 2.5 Baso % (Auto) 0.9 Absolute Neuts (auto) 7.7 Absolute Lymphs (auto) 1.1 Absolute Monos (auto) 0.9 H Absolute Eos (auto) 0.3 Absolute Basos (auto) 0.1 Absolute Nucleated RBC 0 Nucleated RBC % 0 Sodium 136 Potassium 3.5 Chloride 103 Carbon Dioxide 27 Anion Gap 6 BUN 9 Creatinine 0.55 L Est GFR ( Amer) 211.1 Est GFR (Non-Af Amer) 164.2 BUN/Creatinine Ratio 16.4 Glucose 145 H Calcium 7.4 L Phosphorus Magnesium Total Bilirubin 0.50 AST 9 L ALT 10 Alkaline Phosphatase 118 H Total Protein 5.4 L Albumin 2.5 L Globulin 2.9 Albumin/Globulin Ratio 0.9 L Fluid Source Pleural fluid Fluid Volume Fluid Color Fluid Appearance Fluid WBC Fluid RBC Fluid Tot Cell Count Fluid Neutrophils Fluid Band Neutrophils Fluid Cell Count Rvw By Fluid Glucose Fluid Total Protein 3.0 12/31/16 12/31/16 01/01/17 08:20 08:20 06:42 WBC 13.3 H 12.9 H RBC 3.29 L 3.32 L Hgb 9.8 L 10.1 L Hct 29 L 30 L MCV 89 89 MCH 30 31 MCHC 33 34 RDW 14 14 Plt Count 724 H D 824 H D MPV 6 L 6 L Neut % (Auto) 75.7 74.0 Lymph % (Auto) 11.3 L 12.0 L [place] % (Auto) 9.7 H 10.0 H Eos % (Auto) 3.0 3.7 Baso % (Auto) 0.3 0.3 Absolute Neuts (auto) 10.1 H 9.5 H Absolute Lymphs (auto) 1.5 1.5 Absolute Monos (auto) 1.3 H 1.3 H Absolute Eos (auto) 0.4 0.5 Absolute Basos (auto) 0 0 Absolute Nucleated RBC 0 0.01 Nucleated RBC % 0 0.1 Sodium 135 Potassium 3.3 L Chloride 104 Carbon Dioxide 24 Anion Gap 7 BUN 8 Creatinine 0.72 Est GFR ( Amer) 154.7 Est GFR (Non-Af Amer) 120.3 BUN/Creatinine Ratio 11.1 Glucose 177 H Calcium 7.7 L Phosphorus 2.4 L Magnesium 2.0 Total Bilirubin AST ALT Alkaline Phosphatase Total Protein Albumin Globulin Albumin/Globulin Ratio Fluid Source Fluid Volume Fluid Color Fluid Appearance Fluid WBC Fluid RBC Fluid Tot Cell Count Fluid Neutrophils Fluid Band Neutrophils Fluid Cell Count Rvw By Fluid Glucose Fluid Total Protein 01/01/17 06:42 WBC RBC Hgb Hct MCV MCH MCHC RDW Plt Count MPV Neut % (Auto) Lymph % (Auto) [place] % (Auto) Eos % (Auto) Baso % (Auto) Absolute Neuts (auto) Absolute Lymphs (auto) Absolute Monos (auto) Absolute Eos (auto) Absolute Basos (auto) Absolute Nucleated RBC Nucleated RBC % Sodium 137 Potassium 3.4 L Chloride 105 Carbon Dioxide 26 Anion Gap 6 BUN 5 L Creatinine 0.60 L Est GFR ( Amer) 190.9 Est GFR (Non-Af Amer) 148.5 BUN/Creatinine Ratio 8.3 Glucose 105 H Calcium 8.0 L Phosphorus 2.9 Magnesium 2.1 Total Bilirubin AST ALT Alkaline Phosphatase Total Protein Albumin Globulin Albumin/Globulin Ratio Fluid Source Fluid Volume Fluid Color Fluid Appearance Fluid WBC Fluid RBC Fluid Tot Cell Count Fluid Neutrophils Fluid Band Neutrophils Fluid Cell Count Rvw By Fluid Glucose Fluid Total Protein 12/29/16 12/29/16 12/29/16 14:30 14:30 14:30 WBC RBC Hgb Hct MCV MCH MCHC RDW Plt Count MPV Neut % (Auto) Lymph % (Auto) [place] % (Auto) Eos % (Auto) Baso % (Auto) Absolute Neuts (auto) Absolute Lymphs (auto) Absolute Monos (auto) Absolute Eos (auto) Absolute Basos (auto) Absolute Nucleated RBC Nucleated RBC % Sodium Potassium Chloride Carbon Dioxide Anion Gap BUN Creatinine Est GFR ( Amer) Est GFR (Non-Af Amer) BUN/Creatinine Ratio Glucose Calcium Phosphorus Magnesium Total Bilirubin AST ALT Alkaline Phosphatase Total Protein Albumin Globulin Albumin/Globulin Ratio Fluid Source Pleural fluid Pleural fluid Fluid Cell Count Rvw By Fluid Glucose Fluid Total Protein 2.5 HIV 1&2 Antibody 12/29/16 12/29/16 12/29/16 14:30 14:30 14:30 WBC RBC Hgb Hct MCV MCH MCHC RDW Plt Count MPV Neut % (Auto) Lymph % (Auto) [place] % (Auto) Eos % (Auto) Baso % (Auto) Absolute Neuts (auto) Absolute Lymphs (auto) Absolute Monos (auto) Absolute Eos (auto) Absolute Basos (auto) Absolute Nucleated RBC Nucleated RBC % Sodium Potassium Chloride Carbon Dioxide Anion Gap BUN Creatinine Est GFR ( Amer) Est GFR (Non-Af Amer) BUN/Creatinine Ratio Glucose Calcium Phosphorus Magnesium Total Bilirubin AST ALT Alkaline Phosphatase Total Protein Albumin Globulin Albumin/Globulin Ratio Fluid Source Pleural fluid Pleural fluid Fluid Cell Count Rvw By Fluid Glucose 332 Fluid Total Protein HIV 1&2 Antibody 12/29/16 12/29/16 12/31/16 14:30 14:30 08:20 WBC 13.3 H RBC 3.29 L Hgb 9.8 L Hct 29 L MCV 89 MCH 30 MCHC 33 RDW 14 Plt Count 724 H D MPV 6 L Neut % (Auto) 75.7 Lymph % (Auto) 11.3 L [place] % (Auto) 9.7 H Eos % (Auto) 3.0 Baso % (Auto) 0.3 Absolute Neuts (auto) 10.1 H Absolute Lymphs (auto) 1.5 Absolute Monos (auto) 1.3 H Absolute Eos (auto) 0.4 Absolute Basos (auto) 0 Absolute Nucleated RBC 0 Nucleated RBC % 0 Sodium Potassium Chloride Carbon Dioxide Anion Gap BUN Creatinine Est GFR ( Amer) Est GFR (Non-Af Amer) BUN/Creatinine Ratio Glucose Calcium Phosphorus Magnesium Total Bilirubin AST ALT Alkaline Phosphatase Total Protein Albumin Globulin Albumin/Globulin Ratio Fluid Source Pleural fluid Pleural fluid Fluid Cell Count Rvw By Fluid Glucose 402 Fluid Total Protein 3.0 HIV 1&2 Antibody 12/31/16 01/01/17 01/01/17 08:20 06:42 06:42 WBC 12.9 H RBC 3.32 L Hgb 10.1 L Hct 30 L MCV 89 MCH 31 MCHC 34 RDW 14 Plt Count 824 H D MPV 6 L Neut % (Auto) 74.0 Lymph % (Auto) 12.0 L [place] % (Auto) 10.0 H Eos % (Auto) 3.7 Baso % (Auto) 0.3 Absolute Neuts (auto) 9.5 H Absolute Lymphs (auto) 1.5 Absolute Monos (auto) 1.3 H Absolute Eos (auto) 0.5 Absolute Basos (auto) 0 Absolute Nucleated RBC 0.01 Nucleated RBC % 0.1 Sodium 135 137 Potassium 3.3 L 3.4 L Chloride 104 105 Carbon Dioxide 24 26 Anion Gap 7 6 BUN 8 5 L Creatinine 0.72 0.60 L Est GFR ( Amer) 154.7 190.9 Est GFR (Non-Af Amer) 120.3 148.5 BUN/Creatinine Ratio 11.1 8.3 Glucose 177 H 105 H Calcium 7.7 L 8.0 L Phosphorus 2.4 L 2.9 Magnesium 2.0 2.1 Total Bilirubin AST ALT Alkaline Phosphatase Total Protein Albumin Globulin Albumin/Globulin Ratio Fluid Source Fluid Cell Count Rvw By Fluid Glucose Fluid Total Protein HIV 1&2 Antibody 01/01/17 01/02/17 01/02/17 06:42 06:23 07:49 WBC 15.2 H RBC 3.53 L Hgb 10.5 L Hct 31 L MCV 89 MCH 30 MCHC 33 RDW 14 Plt Count 943 H D MPV 6 L Neut % (Auto) 80.7 Lymph % (Auto) 8.8 L [place] % (Auto) 8.1 Eos % (Auto) 1.8 Baso % (Auto) 0.6 Absolute Neuts (auto) 12.2 H Absolute Lymphs (auto) 1.3 Absolute Monos (auto) 1.2 H Absolute Eos (auto) 0.3 Absolute Basos (auto) 0.1 Absolute Nucleated RBC 0 Nucleated RBC % 0 Sodium 133 Potassium 3.2 L Chloride 100 L Carbon Dioxide 27 Anion Gap 6 BUN 4 L Creatinine 0.61 L Est GFR ( Amer) 187.3 Est GFR (Non-Af Amer) 145.7 BUN/Creatinine Ratio 6.6 L Glucose 136 H Calcium 8.3 L Phosphorus Magnesium Total Bilirubin 0.40 AST 20 ALT 21 Alkaline Phosphatase 503 H Total Protein 6.7 Albumin 2.9 L Globulin 3.8 Albumin/Globulin Ratio 0.8 L Fluid Source Fluid Cell Count Rvw By Fluid Glucose Fluid Total Protein HIV 1&2 Antibody Nonreactive Microbiology and Other Data: Microbiology 12/29/16 14:30 Gram Stain - Final Pleural Fluid 12/29/16 14:30 Gram Stain - Final Pleural Fluid 12/28/16 20:20 Gram Stain - Final Sputum Expectorated 12/28/16 21:45 Nasal Screen MRSA (PCR)(YASSINE) - Final Nasal Mrsa Negative 12/28/16 04:30 Legionella Urinary Antigen - Final Urine Negative Legionella Streptococcus pneumoniae Ag Screen - Final Negative S. pneumo Antigen Assess/Plan/Problems-Billing . Assessment: Patient is a 41yo male with a lung abscess with associated empyema who is status post IR drainage and VATS procedure for drainage of the abscess. The surgery was uncomplicated and the patient will remain admitted inpatient for pain control and IV antibiotics. - Patient Problems (1) Abscess, lung/mediastinum Current Visit: Yes Status: Acute Priority: High Code(s): J85.2 - ABSCESS OF LUNG WITHOUT PNEUMONIA; J85.3 - ABSCESS OF MEDIASTINUM SNOMED Code(s): 435931403 Comment: Continue Ceftriaxone / Flagyl per ID Morphine and dilaudid for pain control Patient currently on 2L O2, no signs of fatigue. Respiration depth limited by pain. (2) Empyema of pleural space Current Visit: Yes Status: Acute Priority: High Code(s): J86.9 - PYOTHORAX WITHOUT FISTULA SNOMED Code(s): 51981215 Comment: IV Abx as above Symptomatic control with NSAID, opiates, bronchodilators, antitussives & expectorants. Hemodynamically stable, daily labs; encourage oral intake as tolerated. Will transfer if clinical condition worsens (3) Bipolar disease, chronic Current Visit: Yes Status: Chronic Priority: Medium Code(s): F31.9 - BIPOLAR DISORDER, UNSPECIFIED SNOMED Code(s): 26491598 Comment: Continue current outpatient medication regimen with Quetiapine and Lamictal Will monitor electrolytes and EKG for QT prolongation. (4) Cough Current Visit: Yes Status: Acute Code(s): R05 - COUGH SNOMED Code(s): 46739595 Comment: Causing significant distress to patient. Patient on Codeine, Benzonatate, and Robitussin. No change in symptoms after surgery. (5) Thrombocytosis Current Visit: Yes Status: Acute Comment: Level has decreased. Most likely due to acute phase reaction. No signs of thrombosis or bleeding, will continue to monitor. (6) DVT prophylaxis Current Visit: Yes Status: Acute Code(s): EUR2351 - SNOMED Code(s): 969973548 Comment: Heparin subQ Q8H, will continue through surgery per Dr Gaston. (7) Full code status Current Visit: Yes Status: Acute Code(s): Z78.9 - OTHER SPECIFIED HEALTH STATUS SNOMED Code(s): 185856650 Status and Disposition: Patient admitted inpatient, will discharge when medically able. Attending: Laura Garcia
[2017-01-03] MEDS: Benzonatate CAP* 100 MG PO PRN (12:48)
--- NOTE | 2017-01-03 15:43 | PN ---
Progress Note - Progress Note Date of Service: 01/03/17 - Pulm f/u note Note: Pt seen and examined at bedside. Pt is s/p VATS for management of empyema and loculated pleural effusion. Reports discomfort at chest tube site. Active Medications Generic Name Dose Route Start Last Admin Trade Name Freq PRN Reason Stop Dose Admin Acetaminophen 650 mg 12/28/16 01:51 01/02/17 19:16 Tylenol Tab* PO 650 mg Q4H PRN Administration FEVER/PAIN Al Hydrox/Mg Hydrox/Simethicone 30 ml 12/28/16 01:51 Maalox Plus* PO Q6H PRN INDIGESTION Albuterol 2.5 mg 12/28/16 19:15 01/02/17 03:35 Ventolin 2.5 Mg/3 Ml Neb.Magdalena* INH 2.5 mg Q2H PRN Administration sob/wheezing Benzonatate 200 mg 01/01/17 14:05 01/03/17 12:48 Tessalon Cap* PO 200 mg Q8H PRN Administration NOT STATED... Docusate Sodium 100 mg 01/01/17 21:00 01/03/17 06:14 Colace Cap* PO 100 mg BID@0600,2100 [facility] Administration Guaifenesin/Dextromethorphan 10 ml 12/28/16 14:39 01/02/17 05:55 Robitussin Dm* PO 10 ml Q4H PRN Administration COUGH Heparin Sodium (Porcine) 5,000 units 12/28/16 06:00 01/03/17 12:48 Heparin Vial(*) SUBCUT 5,000 units Q8HR [facility] Administration Hydromorphone HCl 1 mg 01/02/17 15:30 01/03/17 12:43 Dilaudid Inj* IV SLOW PU 1 mg Q1H PRN Administration chest pain Ceftriaxone Sodium 1,000 mg/ 50 mls @ 200 mls/hr 12/28/16 20:00 01/02/17 20: 48 Sodium Chloride IVPB 200 mls/hr Q24H [facility] Administration Metronidazole/Sodium Chloride 500 mg in 100 mls @ 100 mls/hr 12/28/16 20:00 01/03/17 07:40 Flagyl 500 Mg Ivpb* IVPB 100 mls/hr Q12H [facility] Administration Potassium Chloride/Sodium Chloride 1,000 mls @ 150 mls/hr 01/02/17 19:00 05:14 Ns 0.9% W/ 40 Meq Kcl 1000 Ml* IV 150 mls/hr PER RATE [facility] Administration Ketorolac Tromethamine 30 mg 01/03/17 09:00 01/03/17 15:12 Toradol Inj* IV PUSH 01/05/17 08:59 30 mg Q6H [facility] Administration Lamotrigine 200 mg 01/02/17 06:00 01/03/17 05:15 Lamictal Tab(*) PO 200 mg DAILY@0600 [facility] Administration Lidocaine 1 patch 12/31/16 11:00 01/03/17 07:37 Lidoderm 5% Patch* TRANSDERM 1 patch DAILY [facility] Administration Magnesium Hydroxide 30 ml 12/28/16 01:51 Milk Of Magnesia Liq* PO Q4H PRN CONSTIPATION Oxycodone/Acetaminophen 1 tab 12/28/16 01:51 01/03/17 03:11 Percocet 5/325 Tab* PO 1 tab Q4H PRN Administration Pain Pharmacy Profile Note 1 note 12/31/16 21:00 01/02/17 22:09 Lidocaine Patch Remove* N/A Not Given [facility] Phenol/Menthol 1 spray 12/31/16 10:49 01/03/17 03:41 Chloroseptic Throat [place]* MT 1 spray TID PRN Administration SORE THROAT Quetiapine Fumarate 100 mg 12/28/16 21:00 01/03/17 02:12 Seroquel Xr Tab* PO 100 mg BEDTIME [facility] Administration Throat Lozenges 1 dalia 12/28/16 04:34 01/03/17 06:18 Chloraseptic Dalia* PO 1 dalia Q6H PRN Administration SORE THROAT Trimethobenzamide HCl 300 mg 01/01/17 14:38 01/01/17 15:16 Tigan Cap* PO 300 mg Q6H PRN Administration NAUSEA Vital Signs Temp Pulse Resp BP Pulse Ox 97.8 F 102 18 118/64 95 01/03/17 11:52 01/03/17 11:52 01/03/17 13:43 01/03/17 11:52 01/03/17 11:52 O/E: Pt in NAD, slightly drowsy HEENT: PERRLA, no JVD Lunds: Diminished air entry at bases, R>l, no wheeze, chest tube in place on right draining sero sanguinous fluid CVS: S1, S2+ Abd: Soft, BS+ Ext: No edema Neuro : No focal defecits Laboratory Results - last 24 hr 01/03/17 01/03/17 04:53 04:53 WBC 18.5 H RBC 2.98 L Hgb 9.1 L Hct 27 L MCV 89 MCH 30 MCHC 34 RDW 14 Plt Count 838 H D MPV 6 L Neut % (Auto) 82.1 Lymph % (Auto) 8.8 L [place] % (Auto) 7.9 Eos % (Auto) 0.8 Baso % (Auto) 0.4 Absolute Neuts (auto) 15.2 H Absolute Lymphs (auto) 1.6 Absolute Monos (auto) 1.5 H Absolute Eos (auto) 0.2 Absolute Basos (auto) 0.1 Absolute Nucleated RBC 0.01 Nucleated RBC % 0.1 Sodium 131 L Potassium 3.6 Chloride 100 L Carbon Dioxide 27 Anion Gap 4 BUN 4 L Creatinine 0.58 L Est GFR ( Amer) 198.6 Est GFR (Non-Af Amer) 154.4 BUN/Creatinine Ratio 6.9 L Glucose 111 H Calcium 7.7 L I/R: 41 y o m with lung abscess, loculated effusion with suggestion of empyema on abx, cx from pleural fluid growing Strep likely from dental source s/p VATS guided fibrinolysis Pt with air leak and serosanguinous drainage Had pus drained through VATS Chest tube with airr leak Pain mx c/w abx
[2017-01-03] MEDS: GuaiFENesin DM* 5 ML UDC PO PRN ×2 (16:24→21:53)
[2017-01-03] MEDS: cefTRIAXone VIAL(*) 1,000 MG in NS 0.9% 50 ML* 50 ML IVPB SCH (20:11)
[2017-01-03] MEDS: Lidocaine Patch REMOVE* 1 NOTE MISC SCH (23:27)
[2017-01-04] MEDS: HYDROmorphone INJ* 1 MG/ML CARPUJECT SYRINGE IV SLOW PU PRN ×8 (01:35→22:53)
[2017-01-04] MEDS: Ketorolac INJ* 30 MG/ML 1 ML VIAL IV PUSH SCH ×4 (03:16→21:16)
[2017-01-04] MEDS: oxyCODONE/Acetamin 5/325 MG* TAB PO PRN ×5 (04:41→21:16)
[2017-01-04] MEDS: Docusate CAP* 100 MG PO SCH ×2 (05:35→21:16)
[2017-01-04] MEDS: lamoTRIgine TAB(*) 100 MG PO SCH (05:35)
[2017-01-04] MEDS: Heparin VIAL(*) 5000 UNITS/ML VIAL (FIVE THOUSAND) SUBCUT SCH ×3 (05:36→22:36)
[2017-01-04 05:43] LABS: Hematocrit 26 % (42-52); Hemoglobin 8.9 g/dl (14.0-18.0); Mean Corpuscular HGB Conc 34 g/dl (31-36); Mean Corpuscular Hemoglobin 31 pg (27-31); Mean Corpuscular Volume 90 fL (80-94); Mean Platelet Volume 6 um3 (7.4-10.4); Red Blood Count 2.91 10^6/ul (4.0-5.4); Red Cell Distribution Width 14 % (10.5-15); White Blood Count 14.4 10^3/ul (3.5-10.8)
[2017-01-04 05:44] LABS: Add Diff/Slide Review? Slide Review Added; Comments Flag Yes
[2017-01-04 05:58] LABS: Albumin 2.4 g/dL (3.2-5.2); BUN/Creatinine Ratio 10.8 (8-20); Calcium 8.1 mg/dL (8.6-10.3); EGFR African American 174.1 (>60); EGFR Non-African American 135.4 (>60); Globulin 3.6 g/dL (2-4); Potassium 3.4 mmol/L (3.5-5.0); Total Bilirubin 0.3 mg/dL (0.2-1.0)
[2017-01-04] MEDS: Phenol 1.4% Spray* 177 ML BTL MT PRN ×3 (07:10→16:45)
[2017-01-04] MEDS: metroNIDAZOLE IV 500 MG/100ML* 500 MG/100 ML BAG IVPB SCH ×2 (08:03→21:05)
[2017-01-04] MEDS: Benzonatate CAP* 100 MG PO PRN ×2 (08:19→19:46)
[2017-01-04] MEDS: Lidocaine PATCH 5%* 1 PATCH TRANSDERM SCH (09:27)
--- NOTE | 2017-01-04 10:46 | PN ---
Progress Note - Progress Note Date of Service: 01/04/17 SOAP: Subjective: CC: empyema HPI: 41 year old man with lung abscess and multifocal empyema, had thoracentesis. Cough continues, productive of green sputum, no hemoptysis. Chest pain at tube site. No fever, rash, or diarrhea. Objective: [] Vital Signs Temp 36.8 C 01/04/17 04:30 Pulse 101 01/04/17 08:39 Resp 18 01/04/17 09:34 BP 126/70 01/04/17 04:30 Pulse Ox 97 01/04/17 08:39 Intake & Output 01/03/17 01/04/17 01/04/17 18:59 06:59 18:59 Intake Total 2811 2290 Output Total 2089 3915 675 Balance 722 -1625 -675 Intake: IV Fluids 170 ABX - CEFTRIAXONE 60 ABX - FLAGYL 110 IVPB 711 ABX - FLAGYL 109 NS (0.9%) 40 meq KCL 602 Oral 2100 2120 Output: Chest Tube #1 89 15 Urine 2000 3900 675 Other: # Bowel Movements 0 Gen:awake, no distress HEENT:PERLL, MMM Neck:Supple Heart:RRR no murmur Lungs: Decr BS L base, no wheeze or rale; R chest tube Abd:+BS NTND soft Skin: No rash MSK: no spine tenderness Assessment: 1. polymicrobial lung abscess and multifocal empyema; oral kim 2. elevated CRP Plan: 1. ceftriaxone/flagyl day 07/04. Discussed with Dr Gaston 35 minutes floor time >50% face to face in counseling regarding my recommendation that he not leave this area until the infection is largely resolved.
[2017-01-04] MEDS: GuaiFENesin DM* 5 ML UDC PO PRN ×3 (12:00→22:52)
[2017-01-04] MEDS: Benzocaine/Menthol LOZ* 1 LOZENGE PO PRN (16:46)
--- NOTE | 2017-01-04 16:51 | PN ---
Subjective Date of Service: 01/04/17 Interval History: Patient seen and examined at bedside. Pt states that he is doing well, but has increased pain when he is coughing. Pt encouraged to splint his right side when coughing to help with the discomfort. Also encouraged IS use. Denies chills, shortness of breath, chest discomfort, N/V/D. Pt states that he feels feverish when he has his coughing "fits". Family History: Unchanged from Admission Social History: Unchanged from Admission Past Medical History: Unchanged from Admission Objective Active Medications: Acetaminophen (Tylenol Tab*) 650 mg PO Q4H PRN Reason: FEVER/PAIN Al Hydrox/Mg Hydrox/Simethicone (Maalox Plus*) 30 ml PO Q6H PRN Reason: INDIGESTION Albuterol (Ventolin 2.5 Mg/3 Ml Neb.[place]*) 2.5 mg INH Q2H PRN Reason: sob/ wheezing Benzonatate (Tessalon Cap*) 200 mg PO Q8H PRN Reason: COUGH Docusate Sodium (Colace Cap*) 100 mg PO BID@0600,2100 [facility] Guaifenesin/Dextromethorphan (Robitussin Dm*) 10 ml PO Q4H PRN Reason: COUGH Heparin Sodium (Porcine) (Heparin Vial(*)) 5,000 units SUBCUT Q8HR [facility] Hydromorphone HCl (Dilaudid Inj*) 1 mg IV SLOW PU Q1H PRN Reason: chest pain Ceftriaxone Sodium 1,000 mg/ (Sodium Chloride) 50 mls @ 200 mls/hr IVPB Q24H [facility] Metronidazole/Sodium Chloride (Flagyl 500 Mg Ivpb*) 500 mg in 100 mls @ 100 mls /hr IVPB Q12H [facility] Ketorolac Tromethamine (Toradol Inj*) 30 mg IV PUSH Q6H [facility] Stop: 01/05/17 08:59 Lamotrigine (Lamictal Tab(*)) 200 mg PO DAILY@0600 [facility] Lidocaine (Lidoderm 5% Patch*) 1 patch TRANSDERM DAILY [facility] Magnesium Hydroxide (Milk Of Magnesia Liq*) 30 ml PO Q4H PRN Reason: CONSTIPATION Oxycodone/Acetaminophen (Percocet 5/325 Tab*) 1 tab PO Q4H PRN Reason: Pain Pharmacy Profile Note (Lidocaine Patch Remove*) 1 note N/A 2100 [facility] Phenol/Menthol (Chloroseptic Throat [place]*) 1 spray MT TID PRN Reason: SORE THROAT Quetiapine Fumarate (Seroquel Xr Tab*) 100 mg PO BEDTIME [facility] Throat Lozenges (Chloraseptic Dalia*) 1 dalia PO Q6H PRN Reason: SORE THROAT Trimethobenzamide HCl (Tigan Cap*) 300 mg PO Q6H PRN Reason: NAUSEA Vital Signs 01/03/17 01/03/17 01/03/17 19:21 20:00 20:04 Temperature 98.6 F Pulse Rate 111 Respiratory 15 18 18 Rate Blood Pressure 126/71 (mmHg) O2 Sat by Pulse 95 Oximetry 01/03/17 01/03/17 01/03/17 21:04 23:21 23:59 Temperature 98.6 F Pulse Rate 108 Respiratory 18 18 16 Rate Blood Pressure 120/57 (mmHg) O2 Sat by Pulse 96 Oximetry 01/04/17 01/04/17 01/04/17 00:00 00:21 01:35 Temperature Pulse Rate Respiratory 19 17 Rate Blood Pressure (mmHg) O2 Sat by Pulse 96 Oximetry 01/04/17 01/04/17 01/04/17 02:35 04:30 04:41 Temperature 98.2 F Pulse Rate 98 Respiratory 17 20 17 Rate Blood Pressure 126/70 (mmHg) O2 Sat by Pulse 96 Oximetry 01/04/17 01/04/17 01/04/17 06:41 07:10 08:00 Temperature Pulse Rate Respiratory 17 19 16 Rate Blood Pressure (mmHg) O2 Sat by Pulse 97 Oximetry 01/04/17 01/04/17 01/04/17 08:10 08:39 09:34 Temperature Pulse Rate 101 Respiratory 20 18 18 Rate Blood Pressure (mmHg) O2 Sat by Pulse 97 Oximetry 01/04/17 01/04/17 01/04/17 11:19 11:34 11:35 Temperature 98.2 F Pulse Rate 99 Respiratory 28 15 16 Rate Blood Pressure 116/64 (mmHg) O2 Sat by Pulse 95 Oximetry 01/04/17 01/04/17 01/04/17 15:23 15:38 16:20 Temperature 98.2 F Pulse Rate 99 Respiratory 20 19 20 Rate Blood Pressure 125/78 (mmHg) O2 Sat by Pulse 97 Oximetry Oxygen Devices in Use Now: None Appearance: NAD, sitting up in bed Ears/Nose/Mouth/Throat: Mucous Membranes Moist Respiratory: Clear to Auscultation - , diminished Cardiovascular: NL Sounds; No Murmurs; No JVD Abdominal: NL Sounds; No Tenderness; No Distention Extremities: No Edema Skin: No Rash or Ulcers, - Neurological: Alert and Oriented x 3, NL Muscle Strength and Tone Lines/Tubes/Other Access: Clean, Dry and Intact Chest Tube - Right side, Clean, Dry and Intact Peripheral IV - site benign Nutrition: Taking PO's Result Diagrams: 01/04/17 05:21 01/04/17 05:21 Additional Lab and Data: . Microbiology and Other Data: Microbiology 12/29/16 14:30 Gram Stain - Final Pleural Fluid 12/29/16 14:30 Gram Stain - Final Pleural Fluid 12/28/16 20:20 Gram Stain - Final Sputum Expectorated 12/28/16 21:45 Nasal Screen MRSA (PCR)(YASSINE) - Final Nasal Mrsa Negative 12/28/16 04:30 Legionella Urinary Antigen - Final Urine Negative Legionella Streptococcus pneumoniae Ag Screen - Final Negative S. pneumo Antigen Assess/Plan/Problems-Billing . Assessment: Mr. Mariee is a 41yo male with a PMH significant for bipolar disorder and alcoholism who presented to the emergency room and was found to have lung abscess with associated empyema who is status post IR drainage and VATS procedure for drainage of the abscess. - Patient Problems (1) Abscess, lung/mediastinum Code(s): J85.2 - ABSCESS OF LUNG WITHOUT PNEUMONIA; J85.3 - ABSCESS OF MEDIASTINUM SNOMED Code(s): 624379335 Comment: - Continue pain control - Continue Ceftriaxone / Flagyl per ID (2) Empyema of pleural space Code(s): J86.9 - PYOTHORAX WITHOUT FISTULA SNOMED Code(s): 38470203 Comment: - S/P VAT with Dr. Gaston, POD # 2 - Hemodynamically stable, daily labs; encourage oral intake as tolerated. - IV Abx as above - Symptomatic control with NSAID, opiates, bronchodilators, antitussives & expectorants. (3) Cough Code(s): R05 - COUGH SNOMED Code(s): 90912388 Comment: - Improving - Continue Codeine, Benzonatate, and Robitussin. (4) Thrombocytosis Comment: - Deceasing - Suspect due to acute phase reaction. - No signs of thrombosis or bleeding, will continue to monitor. (5) Electrolyte abnormality Code(s): E87.8 - OTH DISORDERS OF ELECTROLYTE AND FLUID BALANCE, NEC SNOMED Code(s): 008609772 Comment: - Hypokalemia - Will give replacement today and check labs in the AM (6) Bipolar disease, chronic Code(s): F31.9 - BIPOLAR DISORDER, UNSPECIFIED SNOMED Code(s): 99338772 Comment: - Continue current outpatient medication regimen with Quetiapine and Lamictal (7) DVT prophylaxis Code(s): SIR3626 - SNOMED Code(s): 352824243 Comment: - Heparin subQ (8) Full code status Code(s): Z78.9 - OTHER SPECIFIED HEALTH STATUS SNOMED Code(s): 390932904 Status and Disposition: Inpatient. Discharge when medically stable, will need director long term care IV ABX (4 weeks) .
[2017-01-04] MEDS: cefTRIAXone VIAL(*) 1,000 MG in NS 0.9% 50 ML* 50 ML IVPB SCH (19:56)
[2017-01-04] MEDS ORDERED: Potassium Chlor TAB* 20 MEQ TAB.ER PO ONE (20:42)
[2017-01-04] MEDS: Lidocaine Patch REMOVE* 1 NOTE MISC SCH (22:23)
[2017-01-04] MEDS: QUEtiapine XR TAB* 50 MG PO SCH (22:35)
[2017-01-05] MEDS: HYDROmorphone INJ* 1 MG/ML CARPUJECT SYRINGE IV SLOW PU PRN ×4 (01:02→22:08)
[2017-01-05] MEDS: Phenol 1.4% Spray* 177 ML BTL MT PRN ×3 (01:05→21:20)
[2017-01-05] MEDS: GuaiFENesin DM* 5 ML UDC PO PRN ×2 (03:09→15:12)
[2017-01-05] MEDS: Benzocaine/Menthol LOZ* 1 LOZENGE PO PRN (03:10)
[2017-01-05] MEDS: Albuterol 2.5 MG/3 ML NEB.SOL* (0.083%) INH PRN (03:14)
--- NOTE | 2017-01-05 03:26 | PN ---
Progress Note - Progress Note Date of Service: 01/05/17 Note: Nursing called reporting subjective SOB & increased chest pain. Sputum change from pinkish to more reddish. No decrease in saO2, no tachypnea. Chest pain is not new or unusual. Albuterol neb helped. Review of CXR 01/03 w/ R basilar pneumonia & chest tube. BP stable, afebrile. Plan to recheck CXR in AM, sooner for objective symptomotology.
[2017-01-05] MEDS: Ketorolac INJ* 30 MG/ML 1 ML VIAL IV PUSH SCH (03:29)
[2017-01-05] MEDS: oxyCODONE/Acetamin 5/325 MG* TAB PO PRN ×5 (04:06→21:18)
[2017-01-05] MEDS ORDERED: ALPRAZolam TAB* 0.25 MG PO ONE (04:22)
[2017-01-05] MEDS: Heparin VIAL(*) 5000 UNITS/ML VIAL (FIVE THOUSAND) SUBCUT SCH ×3 (05:25→21:25)
[2017-01-05] MEDS: lamoTRIgine TAB(*) 100 MG PO SCH (05:25)
[2017-01-05] MEDS: Docusate CAP* 100 MG PO SCH ×2 (05:25→21:19)
[2017-01-05 06:33] LABS: Add Diff/Slide Review? Slide Review Added; Comments Flag Yes; Hematocrit 26 % (42-52); Hemoglobin 8.8 g/dl (14.0-18.0); Mean Corpuscular HGB Conc 34 g/dl (31-36); Mean Corpuscular Hemoglobin 31 pg (27-31); Mean Corpuscular Volume 90 fL (80-94); Mean Platelet Volume 6 um3 (7.4-10.4); Red Blood Count 2.87 10^6/ul (4.0-5.4); Red Cell Distribution Width 14 % (10.5-15); White Blood Count 11.3 10^3/ul (3.5-10.8)
[2017-01-05 06:46] LABS: BUN/Creatinine Ratio 7.7 (8-20); Calcium 8.1 mg/dL (8.6-10.3); EGFR African American 174.1 (>60); EGFR Non-African American 135.4 (>60); Potassium 3.5 mmol/L (3.5-5.0)
--- NOTE | 2017-01-05 07:45 | RAD ---
HISTORY: Pneumonia COMPARISONS: January 03, 2017 VIEWS: 1: frontal portable view of the chest at 4:00 AM FINDINGS: LINES AND TUBES: A right-sided chest tube is noted. CARDIOMEDIASTINAL SILHOUETTE: The cardiomediastinal silhouette is normal for portable technique. PLEURA: There is a small right pleural effusion. The pneumothorax component has essentially resolved. LUNG PARENCHYMA: There is persistent patchy alveolar opacification of the right lung base ABDOMEN: The upper abdomen is clear. There is no subphrenic gas. BONES AND SOFT TISSUES: No bone or soft tissue abnormalities are noted. IMPRESSION: SMALL RIGHT PLEURAL EFFUSION WITH RIGHT BASILAR ATELECTASIS VERSUS CONSOLIDATION
[2017-01-05] MEDS: Lidocaine PATCH 5%* 1 PATCH TRANSDERM SCH (08:14)
[2017-01-05] MEDS: metroNIDAZOLE IV 500 MG/100ML* 500 MG/100 ML BAG IVPB SCH (08:17)
--- NOTE | 2017-01-05 10:42 | PN ---
Progress Note - Progress Note Date of Service: 01/05/17 SOAP: Subjective:POD#3 s/p R VATS;feels anxious and uncomfortable [] Objective:afeb,VSS;decreased breath sounds on R;chest tube with minimal drainage ,no air leak [] Assessment:per Dr Gaston chest tube can be removed today [] Plan:patient premedicated with Dilaudid,chest tube removed with ease and occlusive dressing applied,patient tolerated well discharge and antibiotics per medicine and ID;will followup in our office in [address] Gaston. []
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
--- NOTE | 2017-01-05 11:43 | PN ---
Progress Note - Progress Note Date of Service: 01/05/17 SOAP: Subjective: CC: empyema HPI: 41 year old man with lung abscess and multifocal empyema, had thoracentesis. Chest tube removed this morning, pain improved. Some cough, no fever, rash, or diarrhea. Objective: [] Vital Signs Temp 37.0 C 01/05/17 07:18 Pulse 87 01/05/17 11:15 Resp 16 01/05/17 11:15 BP 124/73 01/05/17 07:18 Pulse Ox 96 01/05/17 11:15 Intake & Output 01/04/17 01/05/17 01/05/17 18:59 06:59 18:59 Intake Total 1390 1000 575 Output Total 3040 3450 1200 Balance -1650 -2450 -625 Intake: IV Fluids 105 ABX - FLAGYL 105 Oral 1390 1000 470 Output: Chest Tube #1 15 Urine 3025 3450 1200 Gen:awake, no distress HEENT:PERLL, MMM Neck:Supple Heart:RRR no murmur Lungs: Decr BS R>L base, no wheeze or rale Abd:+BS NTND soft Skin: No rash MSK: no spine tenderness Assessment: 1. polymicrobial lung abscess and multifocal empyema; oral kim 2. elevated CRP Plan: 1. ceftriaxone/flagyl day 09/03. CT at end of treatment to ensure resolution.
[2017-01-05] MEDS: Benzonatate CAP* 100 MG PO PRN ×2 (12:53→21:18)
--- NOTE | 2017-01-05 13:05 | PN ---
Subjective Date of Service: 01/05/17 Interval History: Patient seen and examined at bedside. Denies fever, chills, shortness of breath , chest discomfort, N/V/D. Pt continues to have a cough and right sided chest pain. The chest pain has improved since removal of the chest tube and adjustment in pain medication. Family History: Unchanged from Admission Social History: Unchanged from Admission Past Medical History: Unchanged from Admission Objective Active Medications: Acetaminophen (Tylenol Tab*) 650 mg PO Q4H PRN Reason: FEVER/PAIN Al Hydrox/Mg Hydrox/Simethicone (Maalox Plus*) 30 ml PO Q6H PRN Reason: INDIGESTION Albuterol (Ventolin 2.5 Mg/3 Ml Neb.[place]*) 2.5 mg INH Q2H PRN Reason: sob/ wheezing Benzonatate (Tessalon Cap*) 200 mg PO Q8H PRN Reason: COUGH Docusate Sodium (Colace Cap*) 100 mg PO BID@0600,2100 [facility] Guaifenesin/Dextromethorphan (Robitussin Dm*) 10 ml PO Q4H PRN Reason: COUGH Heparin Sodium (Porcine) (Heparin Vial(*)) 5,000 units SUBCUT Q8HR [facility] Hydromorphone HCl (Dilaudid Inj*) 1 mg IV SLOW PU Q1H PRN Reason: chest pain Ceftriaxone Sodium 1,000 mg/ (Sodium Chloride) 50 mls @ 200 mls/hr IVPB Q24H [facility] Metronidazole/Sodium Chloride (Flagyl 500 Mg Ivpb*) 500 mg in 100 mls @ 100 mls /hr IVPB Q12H [facility] Lamotrigine (Lamictal Tab(*)) 200 mg PO DAILY@0600 [facility] Lidocaine (Lidoderm 5% Patch*) 1 patch TRANSDERM DAILY [facility] Magnesium Hydroxide (Milk Of Magnesia Liq*) 30 ml PO Q4H PRN Reason: CONSTIPATION Oxycodone/Acetaminophen (Percocet 5/325 Tab*) 2 tab PO Q4H PRN Reason: PAIN - MODERATE TO SEVERE Oxycodone/Acetaminophen (Percocet 5/325 Tab*) 1 tab PO Q4H PRN Reason: PAIN - MILD TO MODERATE Pharmacy Profile Note (Lidocaine Patch Remove*) 1 note N/A 2100 [facility] Phenol/Menthol (Chloroseptic Throat [place]*) 1 spray MT TID PRN Reason: SORE THROAT Quetiapine Fumarate (Seroquel Xr Tab*) 100 mg PO BEDTIME [facility] Throat Lozenges (Chloraseptic Dalia*) 1 dalia PO Q6H PRN Reason: SORE THROAT Trimethobenzamide HCl (Tigan Cap*) 300 mg PO Q6H PRN Reason: NAUSEA Vital Signs 01/04/17 01/04/17 01/04/17 15:38 16:00 16:20 Temperature 98.2 F Pulse Rate 99 Respiratory 19 20 Rate Blood Pressure 125/78 (mmHg) O2 Sat by Pulse 97 97 Oximetry 01/04/17 01/04/17 01/04/17 19:02 19:18 19:41 Temperature 98.6 F Pulse Rate 101 Respiratory 18 19 16 Rate Blood Pressure 137/78 (mmHg) O2 Sat by Pulse 97 Oximetry 01/04/17 01/04/17 01/05/17 23:17 23:53 01:02 Temperature 98.2 F Pulse Rate 92 Respiratory 16 18 18 Rate Blood Pressure 124/73 (mmHg) O2 Sat by Pulse 96 Oximetry 01/05/17 01/05/17 01/05/17 03:10 03:35 04:06 Temperature 98.3 F Pulse Rate 112 Respiratory 18 18 22 Rate Blood Pressure 132/71 (mmHg) O2 Sat by Pulse 95 Oximetry 01/05/17 01/05/17 01/05/17 04:40 06:06 07:18 Temperature 98.6 F Pulse Rate 87 Respiratory 20 14 16 Rate Blood Pressure 124/73 (mmHg) O2 Sat by Pulse 96 Oximetry 01/05/17 01/05/17 01/05/17 08:15 08:22 09:59 Temperature Pulse Rate Respiratory 16 18 16 Rate Blood Pressure (mmHg) O2 Sat by Pulse 96 Oximetry 01/05/17 01/05/17 01/05/17 10:14 10:59 11:15 Temperature Pulse Rate 87 Respiratory 16 18 16 Rate Blood Pressure (mmHg) O2 Sat by Pulse 96 Oximetry Oxygen Devices in Use Now: None Appearance: NAD, sitting up in bed Eyes: PERRLA Ears/Nose/Mouth/Throat: Mucous Membranes Moist Respiratory: Symmetrical Chest Expansion and Respiratory Effort, Clear to Auscultation - on the left side. Rhonchi on the right side Cardiovascular: NL Sounds; No Murmurs; No JVD, RRR Abdominal: NL Sounds; No Tenderness; No Distention Extremities: No Edema Skin: No Rash or Ulcers Neurological: Alert and Oriented x 3, NL Muscle Strength and Tone Lines/Tubes/Other Access: Clean, Dry and Intact Peripheral IV Nutrition: Taking PO's Result Diagrams: 01/05/17 05:51 01/05/17 05:51 Additional Lab and Data: . Microbiology and Other Data: Microbiology 12/29/16 14:30 Gram Stain - Final Pleural Fluid 12/29/16 14:30 Gram Stain - Final Pleural Fluid 12/28/16 20:20 Gram Stain - Final Sputum Expectorated 12/28/16 21:45 Nasal Screen MRSA (PCR)(YASSINE) - Final Nasal Mrsa Negative 12/28/16 04:30 Legionella Urinary Antigen - Final Urine Negative Legionella Streptococcus pneumoniae Ag Screen - Final Negative S. pneumo Antigen Assess/Plan/Problems-Billing . Assessment: Mr. Mariee is a 41yo male with a PMH significant for bipolar disorder and alcoholism who presented to the emergency room and was found to have lung abscess with associated empyema who is status post IR drainage and VATS procedure for drainage of the abscess. - Patient Problems (1) Abscess, lung/mediastinum Code(s): J85.2 - ABSCESS OF LUNG WITHOUT PNEUMONIA; J85.3 - ABSCESS OF MEDIASTINUM SNOMED Code(s): 151139804 Comment: - Continue pain control - Continue Ceftriaxone / Flagyl per ID (2) Empyema of pleural space Code(s): J86.9 - PYOTHORAX WITHOUT FISTULA SNOMED Code(s): 52320930 Comment: - S/P VAT with Dr. Gaston, POD # 3 - Hemodynamically stable, daily labs; encourage oral intake as tolerated. - IV Abx as above - Symptomatic control with NSAID, opiates, bronchodilators, antitussives & expectorants. (3) Cough Code(s): R05 - COUGH SNOMED Code(s): 22154391 Comment: - Improving - Continue Codeine, Benzonatate, and Robitussin. (4) Thrombocytosis Comment: - Deceasing - Suspect due to acute phase reaction. - No signs of thrombosis or bleeding, will continue to monitor. (5) Electrolyte abnormality Code(s): E87.8 - OTH DISORDERS OF ELECTROLYTE AND FLUID BALANCE, NEC SNOMED Code(s): 183335504 Comment: - Hypokalemia - Resolved (6) Bipolar disease, chronic Code(s): F31.9 - BIPOLAR DISORDER, UNSPECIFIED SNOMED Code(s): 94828733 Comment: - Continue current outpatient medication regimen with Quetiapine and Lamictal (7) DVT prophylaxis Code(s): [id number] - SNOMED Code(s): 794902403 Comment: - Heparin subQ (8) Full code status Code(s): Z78.9 - OTHER SPECIFIED HEALTH STATUS SNOMED Code(s): 934489989 Status and Disposition: Inpatient. Discharge when medically stable, will need stock chaser IV ABX (4 weeks) .
[2017-01-05] MEDS: QUEtiapine XR TAB* 50 MG PO SCH (21:17)
[2017-01-05] MEDS: metroNIDAZOLE TAB* 250 MG PO SCH (21:19)
[2017-01-05] MEDS: cefTRIAXone VIAL(*) 1,000 MG in NS 0.9% 50 ML* 50 ML IVPB SCH (21:20)
[2017-01-05] MEDS: Lidocaine Patch REMOVE* 1 NOTE MISC SCH (21:27)
[2017-01-06] MEDS: oxyCODONE/Acetamin 5/325 MG* TAB PO PRN ×4 (03:25→19:38)
[2017-01-06] MEDS: GuaiFENesin DM* 5 ML UDC PO PRN ×5 (03:26→22:15)
[2017-01-06] MEDS: HYDROmorphone INJ* 1 MG/ML CARPUJECT SYRINGE IV SLOW PU PRN (05:06)
[2017-01-06] MEDS: Benzocaine/Menthol LOZ* 1 LOZENGE PO PRN ×3 (05:07→19:39)
[2017-01-06] MEDS: Heparin VIAL(*) 5000 UNITS/ML VIAL (FIVE THOUSAND) SUBCUT SCH ×3 (06:08→22:17)
[2017-01-06] MEDS: lamoTRIgine TAB(*) 100 MG PO SCH (06:08)
[2017-01-06] MEDS: Docusate CAP* 100 MG PO SCH ×2 (06:08→22:16)
[2017-01-06] MEDS: Benzonatate CAP* 100 MG PO PRN ×2 (08:03→16:41)
[2017-01-06] MEDS ORDERED: HYDROmorphone INJ* 1 MG/ML CARPUJECT SYRINGE IV SLOW PU PRN (08:23)
--- NOTE | 2017-01-06 08:32 | PN ---
Subjective Date of Service: 01/06/17 Interval History: Pt is feeling ok. He states he continues to have significant pain at the former chest tube insertion site. He is coughing quite a bit and bringing up bloody mucous. There has been blood in his sputum for the last 2 days. He has been using the incentive spirometer and walking around the floor. He denies any abdominal pain or diarrhea. He states his stools are soft. Family History: Unchanged from Admission Social History: Unchanged from Admission Past Medical History: Unchanged from Admission Objective Active Medications: Acetaminophen (Tylenol Tab*) 650 mg PO Q4H PRN PRN Reason: FEVER/PAIN Last Admin: 01/02/17 19:16 Dose: 650 mg Al Hydrox/Mg Hydrox/Simethicone (Maalox Plus*) 30 ml PO Q6H PRN PRN Reason: INDIGESTION Albuterol (Ventolin 2.5 Mg/3 Ml Neb.Magdalena*) 2.5 mg INH Q2H PRN PRN Reason: sob/wheezing Last Admin: 01/05/17 03:14 Dose: 2.5 mg Benzonatate (Tessalon Cap*) 200 mg PO Q8H PRN PRN Reason: COUGH Last Admin: 01/06/17 08:03 Dose: 200 mg Docusate Sodium (Colace Cap*) 100 mg PO BID@0600,2100 [facility] Last Admin: 01/06/17 06:08 Dose: 100 mg Guaifenesin/Dextromethorphan (Robitussin Dm*) 10 ml PO Q4H PRN PRN Reason: COUGH Last Admin: 01/06/17 03:26 Dose: 10 ml Heparin Sodium (Porcine) (Heparin Vial(*)) 5,000 units SUBCUT Q8HR [facility] Last Admin: 01/06/17 06:08 Dose: 5,000 units Hydromorphone HCl (Dilaudid Inj*) 1 mg IV SLOW PU Q6H PRN PRN Reason: PAIN - BREAKTHROUGH Ceftriaxone Sodium 1,000 mg/ (Sodium Chloride) 50 mls @ 200 mls/hr IVPB Q24H [facility] Last Admin: 01/05/17 21:20 Dose: 200 mls/hr Ibuprofen (Motrin Tab*) 600 mg PO Q6H PRN PRN Reason: PAIN Lamotrigine (Lamictal Tab(*)) 200 mg PO DAILY@0600 [facility] Last Admin: 01/06/17 06:08 Dose: 200 mg Lidocaine (Lidoderm 5% Patch*) 1 patch TRANSDERM DAILY [facility] Last Admin: 01/05/17 08:14 Dose: 1 patch Magnesium Hydroxide (Milk Of Magnesia Liq*) 30 ml PO Q4H PRN PRN Reason: CONSTIPATION Metronidazole (Flagyl Tab*) 500 mg PO BID [facility] Last Admin: 01/05/17 21:19 Dose: 500 mg Morphine Sulfate (Ms Contin(*)) 15 mg PO Q12H [facility] Oxycodone/Acetaminophen (Percocet 5/325 Tab*) 2 tab PO Q4H PRN PRN Reason: PAIN - MODERATE TO SEVERE Last Admin: 01/06/17 08:03 Dose: 2 tab Oxycodone/Acetaminophen (Percocet 5/325 Tab*) 1 tab PO Q4H PRN PRN Reason: PAIN - MILD TO MODERATE Pharmacy Profile Note (Lidocaine Patch Remove*) 1 note N/A 2100 [facility] Last Admin: 01/05/17 21:27 Dose: 1 note Phenol/Menthol (Chloroseptic Throat Offerman*) 1 spray MT TID PRN PRN Reason: SORE THROAT Last Admin: 01/05/17 21:20 Dose: 1 spray Quetiapine Fumarate (Seroquel Xr Tab*) 100 mg PO BEDTIME [facility] Last Admin: 01/05/17 21:17 Dose: 100 mg Throat Lozenges (Chloraseptic Nicholas*) 1 nicholas PO Q6H PRN PRN Reason: SORE THROAT Last Admin: 01/06/17 05:07 Dose: 1 nicholas Trimethobenzamide HCl (Tigan Cap*) 300 mg PO Q6H PRN PRN Reason: NAUSEA Last Admin: 01/01/17 15:16 Dose: 300 mg Vital Signs 01/05/17 01/05/17 01/05/17 09:59 10:14 10:59 Temperature Pulse Rate Respiratory 16 16 18 Rate Blood Pressure (mmHg) O2 Sat by Pulse Oximetry 01/05/17 01/05/17 01/05/17 11:15 11:29 12:52 Temperature 99.0 F Pulse Rate 87 102 Respiratory 16 18 16 Rate Blood Pressure 123/70 (mmHg) O2 Sat by Pulse 96 96 Oximetry 01/05/17 01/05/17 01/05/17 14:52 15:27 16:00 Temperature 98.1 F Pulse Rate 107 Respiratory 16 18 Rate Blood Pressure 120/77 (mmHg) O2 Sat by Pulse 95 95 Oximetry 01/05/17 01/05/17 01/05/17 17:13 19:13 19:35 Temperature 98.0 F Pulse Rate 102 Respiratory 16 18 16 Rate Blood Pressure 133/74 (mmHg) O2 Sat by Pulse 93 Oximetry 01/05/17 01/05/17 01/05/17 21:18 22:00 22:08 Temperature Pulse Rate Respiratory 18 18 18 Rate Blood Pressure (mmHg) O2 Sat by Pulse Oximetry 01/05/17 01/05/17 01/06/17 23:08 23:42 03:25 Temperature 99.4 F Pulse Rate 100 Respiratory 18 22 20 Rate Blood Pressure 102/47 (mmHg) O2 Sat by Pulse 92 Oximetry 01/06/17 01/06/17 01/06/17 03:31 05:06 05:25 Temperature 99.4 F Pulse Rate 104 Respiratory 20 20 20 Rate Blood Pressure 127/76 (mmHg) O2 Sat by Pulse 96 Oximetry 01/06/17 01/06/17 01/06/17 06:06 07:28 08:03 Temperature 98.4 F Pulse Rate 89 Respiratory 18 16 18 Rate Blood Pressure 123/62 (mmHg) O2 Sat by Pulse 96 Oximetry 01/06/17 01/06/17 08:20 08:21 Temperature Pulse Rate 102 Respiratory 19 Rate Blood Pressure (mmHg) O2 Sat by Pulse 99 94 Oximetry Oxygen Devices in Use Now: None Appearance: Middle aged male sitting up in bed, NAD Eyes: No Scleral Icterus Ears/Nose/Mouth/Throat: Mucous Membranes Moist Respiratory: Symmetrical Chest Expansion and Respiratory Effort, Clear to Auscultation - markedly diminished breath sounds to the R base, - - Chest tube insertion site covered in clean, dry dressing Cardiovascular: NL Sounds; No Murmurs; No JVD, RRR, No Edema Abdominal: NL Sounds; No Tenderness; No Distention Extremities: No Clubbing, Cyanosis Skin: No Rash or Ulcers, No Nodules or Sclerosis Neurological: Alert and Oriented x 3 Result Diagrams: 01/05/17 05:51 01/05/17 05:51 Additional Lab and Data: . Microbiology and Other Data: Microbiology 12/29/16 14:30 Gram Stain - Final Pleural Fluid 12/29/16 14:30 Gram Stain - Final Pleural Fluid 12/28/16 20:20 Gram Stain - Final Sputum Expectorated 12/28/16 21:45 Nasal Screen MRSA (PCR)(YASSINE) - Final Nasal Mrsa Negative 12/28/16 04:30 Legionella Urinary Antigen - Final Urine Negative Legionella Streptococcus pneumoniae Ag Screen - Final Negative S. pneumo Antigen Assess/Plan/Problems-Billing Mr. Mariee is a 41yo male with a PMHx significant for bipolar disorder and alcoholism who presented to the emergency room and was found to have lung abscess with associated empyema who is status post IR drainage and VATS procedure for drainage of the abscess. - Patient Problems (1) Abscess, lung/mediastinum Current Visit: Yes Status: Acute Code(s): J85.2 - ABSCESS OF LUNG WITHOUT PNEUMONIA; J85.3 - ABSCESS OF MEDIASTINUM SNOMED Code(s): 039464105 Comment: The patient is POD #4 from VATS. Continue ceftriaxone IV and flagyl PO-today is D#10/04. Will need to determine how he will be receiving the Abx therapy (?home Abx vs infusion center). The patient will be here in the hospital through the weekend. Pain remains an issue for the patient. Will start low dose oxycontin for just the short term and decrease the prn percocet to 1 tab q4hr and add prn ibuprofen. Stop IV dilaudid later this afternoon. (2) Empyema of pleural space Current Visit: Yes Status: Acute Code(s): J86.9 - PYOTHORAX WITHOUT FISTULA SNOMED Code(s): 72148270 Comment: S/P VATS with Dr. Gaston, POD # 4. Continue Abx as above. (3) Thrombocytosis Current Visit: Yes Status: Acute Comment: Likely reactive secondary to severe pulmonary infection. Continue to follow. (4) Bipolar disease, chronic Current Visit: Yes Status: Chronic Code(s): F31.9 - BIPOLAR DISORDER, UNSPECIFIED SNOMED Code(s): 00702735 Comment: Stable- continue lamictal and seroquel. (5) DVT prophylaxis Current Visit: Yes Status: Acute Code(s): YAU7651 - SNOMED Code(s): 408020340 Comment: SQ heparin (6) Full code status Current Visit: Yes Status: Acute Code(s): Z78.9 - OTHER SPECIFIED HEALTH STATUS SNOMED Code(s): 922061139 Status and Disposition: .
[2017-01-06] MEDS ORDERED: Morphine TAB Extended Release (*) 15 MG TAB.ER PO SCH (09:00)
[2017-01-06] MEDS: Lidocaine PATCH 5%* 1 PATCH TRANSDERM SCH (09:58)
[2017-01-06] MEDS: metroNIDAZOLE TAB* 250 MG PO SCH ×2 (09:58→20:49)
[2017-01-06] MEDS: oxyCODONE SR TAB(*) 10 MG TAB.SR PO SCH ×2 (09:58→20:49)
--- NOTE | 2017-01-06 11:37 | PN ---
Progress Note - Progress Note Date of Service: 01/06/17 SOAP: Subjective: Pt seen adn examined. Feels"ok" Still coughing up some bloody mucous. Pos. sweating overnight, no fevers Chest tube removed yesterday Objective: Af [id number] lungs clear on L, Right: decre at base dressing inact, no drainage labs notes form 02/04 Assessment: s/p VATS for empyema, Chest tube pulled yesterday. no fevers Plan: abs as per ID, remove dressing tomorrow incentive spirometry will follow
[2017-01-06] MEDS: Ibuprofen TAB* 600 MG PO PRN ×2 (14:07→22:21)
[2017-01-06] MEDS: cefTRIAXone VIAL(*) 1,000 MG in NS 0.9% 50 ML* 50 ML IVPB SCH (20:21)
[2017-01-06] MEDS: Lidocaine Patch REMOVE* 1 NOTE MISC SCH (20:51)
[2017-01-06] MEDS: QUEtiapine XR TAB* 50 MG PO SCH (22:16)
[2017-01-07] MEDS: GuaiFENesin DM* 5 ML UDC PO PRN ×4 (03:42→22:13)
[2017-01-07] MEDS: Benzonatate CAP* 100 MG PO PRN ×3 (03:42→20:45)
[2017-01-07] MEDS: oxyCODONE/Acetamin 5/325 MG* TAB PO PRN ×4 (03:42→17:56)
[2017-01-07] MEDS: Heparin VIAL(*) 5000 UNITS/ML VIAL (FIVE THOUSAND) SUBCUT SCH ×3 (05:43→22:14)
[2017-01-07] MEDS: lamoTRIgine TAB(*) 100 MG PO SCH (05:43)
[2017-01-07] MEDS: Docusate CAP* 100 MG PO SCH ×2 (05:43→22:14)
[2017-01-07] MEDS: metroNIDAZOLE TAB* 250 MG PO SCH ×2 (09:02→22:35)
[2017-01-07] MEDS: oxyCODONE SR TAB(*) 10 MG TAB.SR PO SCH ×2 (09:02→22:14)
[2017-01-07] MEDS: Lidocaine PATCH 5%* 1 PATCH TRANSDERM SCH (09:04)
--- NOTE | 2017-01-07 11:30 | PN ---
Progress Note - Progress Note Date of Service: 01/07/17 SOAP: Subjective: Pt seen adn examined. Feels"ok" C/o left hand numbness Objective: af vss lungs clear on L, Right: decre at base dressing removed Ext: decreased sensation to light touch at L ring finger, 4/5 strength No new lbs or CXR Assessment: s/p VATS for empyema, Improving; no fevers neuropraxia along L ulnar distribution Plan: abs as per ID, incentive spirometry will follow d/c planning wathcful waiting re:L ulnar finding
--- NOTE | 2017-01-07 13:07 | PN ---
Subjective Date of Service: 01/07/17 Interval History: Patient states his pain is tolerable on new oral pain regimen. Patient states it is 6/10 in his side and feels like he has been working out. Patient continues to complain of worsening numbness, pain and weakness in the distribution of his left ulnar nerve. Patient is awaiting PICC line placement tomorrow. Family History: Unchanged from Admission Social History: Unchanged from Admission Past Medical History: Unchanged from Admission Objective Active Medications: Acetaminophen (Tylenol Tab*) 650 mg PO Q4H PRN PRN Reason: FEVER/PAIN Last Admin: 01/02/17 19:16 Dose: 650 mg Al Hydrox/Mg Hydrox/Simethicone (Maalox Plus*) 30 ml PO Q6H PRN PRN Reason: INDIGESTION Benzonatate (Tessalon Cap*) 200 mg PO Q8H PRN PRN Reason: COUGH Last Admin: 01/07/17 12:44 Dose: 200 mg Docusate Sodium (Colace Cap*) 100 mg PO BID@0600,2100 [facility] [place] Last Admin: 01/07/17 05:43 Dose: 100 mg Guaifenesin/Dextromethorphan (Robitussin Dm*) 10 ml PO Q4H PRN PRN Reason: COUGH Last Admin: 01/07/17 03:42 Dose: 10 ml Heparin Sodium (Porcine) (Heparin Vial(*)) 5,000 units SUBCUT Q8HR [facility] [place] Last Admin: 01/07/17 05:43 Dose: 5,000 units Hydromorphone HCl (Dilaudid Inj*) 1 mg IV SLOW PU Q6H PRN PRN Reason: PAIN - BREAKTHROUGH Ceftriaxone Sodium 1,000 mg/ (Sodium Chloride) 50 mls @ 200 mls/hr IVPB Q24H [facility] [place] Last Admin: 01/06/17 20:21 Dose: 200 mls/hr Ibuprofen (Motrin Tab*) 600 mg PO Q6H PRN PRN Reason: PAIN Last Admin: 01/06/17 22:21 Dose: 600 mg Lamotrigine (Lamictal Tab(*)) 200 mg PO DAILY@0600 [facility] [place] Last Admin: 01/07/17 05:43 Dose: 200 mg Lidocaine (Lidoderm 5% Patch*) 1 patch TRANSDERM DAILY [facility] [place] Last Admin: 01/07/17 09:04 Dose: 1 patch Magnesium Hydroxide (Milk Of Magnesia Liq*) 30 ml PO Q4H PRN PRN Reason: CONSTIPATION Metronidazole (Flagyl Tab*) 500 mg PO BID [facility] [place] Last Admin: 01/07/17 09:02 Dose: 500 mg Oxycodone HCl (Oxycontin(*)) 10 mg PO Q12HR [facility] [place] Last Admin: 01/07/17 09:02 Dose: 10 mg Oxycodone/Acetaminophen (Percocet 5/325 Tab*) 1 tab PO Q4H PRN PRN Reason: PAIN - MILD TO MODERATE Last Admin: 01/07/17 07:48 Dose: 1 tab Pharmacy Profile Note (Lidocaine Patch Remove*) 1 note N/A 2100 [facility] [place] Last Admin: 01/06/17 20:51 Dose: 1 note Quetiapine Fumarate (Seroquel Xr Tab*) 100 mg PO BEDTIME [facility] [place] Last Admin: 01/06/17 22:16 Dose: 100 mg Throat Lozenges (Chloraseptic Dalia*) 1 dalia PO Q6H PRN PRN Reason: SORE THROAT Last Admin: 01/06/17 19:39 Dose: 1 dalia Trimethobenzamide HCl (Tigan Cap*) 300 mg PO Q6H PRN PRN Reason: NAUSEA Last Admin: 01/01/17 15:16 Dose: 300 mg Vital Signs 01/06/17 01/06/17 01/06/17 15:07 15:38 16:00 Temperature 98.5 F Pulse Rate 113 Respiratory 16 16 Rate Blood Pressure 136/74 (mmHg) O2 Sat by Pulse 97 97 Oximetry 01/06/17 01/06/17 01/06/17 19:20 19:38 19:50 Temperature 97.7 F Pulse Rate 103 Respiratory 18 18 16 Rate Blood Pressure 126/75 (mmHg) O2 Sat by Pulse 99 Oximetry 01/06/17 01/06/17 01/06/17 20:49 21:38 23:39 Temperature 99.1 F Pulse Rate 95 Respiratory 18 18 18 Rate Blood Pressure 104/59 (mmHg) O2 Sat by Pulse 98 Oximetry 01/07/17 01/07/17 01/07/17 03:38 03:42 05:42 Temperature 98.2 F Pulse Rate 90 Respiratory 20 18 18 Rate Blood Pressure 115/74 (mmHg) O2 Sat by Pulse 94 Oximetry 01/07/17 01/07/17 01/07/17 07:29 07:48 08:00 Temperature 98.5 F Pulse Rate 95 Respiratory 18 20 18 Rate Blood Pressure 91/52 (mmHg) O2 Sat by Pulse 96 96 Oximetry 01/07/17 09:02 Temperature Pulse Rate Respiratory 18 Rate Blood Pressure (mmHg) O2 Sat by Pulse Oximetry Oxygen Devices in Use Now: None Appearance: Patient is a 41yo male who appears stated age sitting in the bed in NAD. Eyes: No Scleral Icterus, PERRLA Neck: NL Appearance and Movements; NL JVP, Trachea Midline Respiratory: Symmetrical Chest Expansion and Respiratory Effort, - - CTA on the left side. Wheezes and rhonchi on the R side in all Cardiovascular: NL Sounds; No Murmurs; No JVD, RRR, No Edema Abdominal: NL Sounds; No Tenderness; No Distention, No Hepatosplenomegaly Lymphatic: No Cervical Adenopathy Skin: No Rash or Ulcers, No Nodules or Sclerosis, - - Bandage over chest tube site on right ribs. No drainage or redness/swelling. Neurological: Alert and Oriented x 3, - - Decreased sensation to light touch on left 5th digit and the medial right 4th digit. Result Diagrams: 01/05/17 05:51 01/05/17 05:51 Additional Lab and Data: . Microbiology and Other Data: Microbiology 12/29/16 14:30 Gram Stain - Final Pleural Fluid 12/29/16 14:30 Gram Stain - Final Pleural Fluid 12/28/16 20:20 Gram Stain - Final Sputum Expectorated 12/28/16 21:45 Nasal Screen MRSA (PCR)(YASSINE) - Final Nasal Mrsa Negative 12/28/16 04:30 Legionella Urinary Antigen - Final Urine Negative Legionella Streptococcus pneumoniae Ag Screen - Final Negative S. pneumo Antigen Assess/Plan/Problems-Billing Mr. Mariee is a 41yo male with a PMHx significant for bipolar disorder and alcoholism who presented to the emergency room and was found to have lung abscess with associated empyema who is status post IR drainage and VATS procedure for drainage of the abscess. - Patient Problems (1) Abscess, lung/mediastinum Current Visit: Yes Status: Acute Code(s): J85.2 - ABSCESS OF LUNG WITHOUT PNEUMONIA; J85.3 - ABSCESS OF MEDIASTINUM SNOMED Code(s): 383082263 Comment: The patient is POD #5 from VATS. Continue ceftriaxone IV and flagyl PO-today is D#11/03. Will need to determine how he will be receiving the Abx therapy (?home Abx vs infusion center). The patient will be here in the hospital until tomorrow. Pain is 6/10, tolerable, and decreasing on current regimen. Patient is able to walk around the unit multiple times without fatiguing or getting SOB. (2) Empyema of pleural space Current Visit: Yes Status: Acute Code(s): J86.9 - PYOTHORAX WITHOUT FISTULA SNOMED Code(s): 66862765 Comment: S/P VATS with Dr. Gaston, POD # 5. Continue Abx as above. (3) Bipolar disease, chronic Current Visit: Yes Status: Chronic Code(s): F31.9 - BIPOLAR DISORDER, UNSPECIFIED SNOMED Code(s): 99318757 Comment: Stable- continue lamictal and seroquel. (4) Cough Current Visit: Yes Status: Acute Code(s): R05 - COUGH SNOMED Code(s): 11960663 Comment: Improving, pain in throat decreasing Continue Codeine, Benzonatate, and Robitussin. (5) Thrombocytosis Current Visit: Yes Status: Acute Comment: Likely reactive secondary to severe pulmonary infection. Continue to follow. (6) DVT prophylaxis Current Visit: Yes Status: Acute Code(s): PAR5932 - SNOMED Code(s): 755363515 Comment: SQ heparin (7) Full code status Current Visit: Yes Status: Acute Code(s): Z78.9 - OTHER SPECIFIED HEALTH STATUS SNOMED Code(s): 227937725 (8) Ulnar nerve palsy of left upper extremity Current Visit: Yes Status: Acute Code(s): G56.22 - LESION OF ULNAR NERVE, LEFT UPPER LIMB SNOMED Code(s): 697071449 Comment: Likely due to tarsal tunnel syndrome from prolonged resting on elbow. Told what actions to avoid to help decrease compression. Should f/u outpatient with PCP if it does not resolve. Status and Disposition: Patient should be able to be discharged soon. Will make arrangements for patient 's outpatient antibiotics.
[2017-01-07] MEDS: Benzocaine/Menthol LOZ* 1 LOZENGE PO PRN ×2 (15:47→22:14)
[2017-01-07] MEDS: cefTRIAXone VIAL(*) 1,000 MG in NS 0.9% 50 ML* 50 ML IVPB SCH (20:08)
[2017-01-07] MEDS: Lidocaine Patch REMOVE* 1 NOTE MISC SCH (20:23)
[2017-01-07] MEDS: QUEtiapine XR TAB* 50 MG PO SCH (22:14)
[2017-01-08] MEDS: GuaiFENesin DM* 5 ML UDC PO PRN ×2 (05:55→14:03)
[2017-01-08] MEDS: Benzonatate CAP* 100 MG PO PRN (05:56)
[2017-01-08] MEDS: lamoTRIgine TAB(*) 100 MG PO SCH (05:56)
[2017-01-08] MEDS: Heparin VIAL(*) 5000 UNITS/ML VIAL (FIVE THOUSAND) SUBCUT SCH ×2 (05:56→14:04)
[2017-01-08] MEDS: oxyCODONE/Acetamin 5/325 MG* TAB PO PRN ×2 (05:59→14:03)
[2017-01-08] MEDS: Docusate CAP* 100 MG PO SCH (06:02)
[2017-01-08 06:49] LABS: Hematocrit 31 % (42-52); Hemoglobin 10.6 g/dl (14.0-18.0); Mean Corpuscular HGB Conc 34 g/dl (31-36); Mean Corpuscular Hemoglobin 31 pg (27-31); Mean Corpuscular Volume 90 fL (80-94); Mean Platelet Volume 6 um3 (7.4-10.4); Red Blood Count 3.42 10^6/ul (4.0-5.4); Red Cell Distribution Width 14 % (10.5-15); White Blood Count 10.6 10^3/ul (3.5-10.8)
[2017-01-08 07:02] LABS: BUN/Creatinine Ratio 9.8 (8-20); Calcium 8.9 mg/dL (8.6-10.3); EGFR African American 116.6 (>60); EGFR Non-African American 90.7 (>60); Potassium 3.9 mmol/L (3.5-5.0)
[2017-01-08] MEDS: metroNIDAZOLE TAB* 250 MG PO SCH (09:42)
[2017-01-08] MEDS: oxyCODONE SR TAB(*) 10 MG TAB.SR PO SCH (09:42)
[2017-01-08] MEDS: Lidocaine PATCH 5%* 1 PATCH TRANSDERM SCH (09:44)
[2017-01-08] MEDS: Benzocaine/Menthol LOZ* 1 LOZENGE PO PRN ×2 (11:12→17:15)
--- NOTE | 2017-01-08 12:55 | PN ---
Progress Note - Progress Note Date of Service: 01/08/17 SOAP: Subjective: CC: empyema HPI: 41 year old man with lung abscess and multifocal empyema, had thoracentesis. No cough, fever, chest pain, rash, or diarrhea. Objective: [] Vital Signs Temp 37.3 C 01/08/17 11:12 Pulse 109 01/08/17 11:12 Resp 18 01/08/17 11:16 BP 102/62 01/08/17 11:12 Pulse Ox 97 01/08/17 11:12 Intake & Output 01/07/17 01/08/17 01/08/17 18:59 06:59 18:59 Intake Total 2760 3490 1000 Output Total 2175 4100 1650 Balance 585 -610 -650 Intake: Oral 2760 3490 1000 Output: Urine 2175 4100 1650 Gen:awake, no distress HEENT:PERLL, MMM Neck:Supple Heart:RRR no murmur Lungs: Decr BS R base, no wheeze or rale Abd:+BS NTND soft Skin: No rash MSK: no spine tenderness Assessment: 1. polymicrobial lung abscess and multifocal empyema; oral kim 2. elevated CRP Plan: 1. ceftriaxone/flagyl day 12/04 with weekly cbc, cmp, crp DC when outpatient antibiotics set up. CT at end of treatment to ensure resolution.
[2017-01-08] MEDS ORDERED: cefTRIAXone VIAL(*) 1,000 MG in NS 0.9% 50 ML* 50 ML IVPB SCH (14:00)
[2017-01-08 16:26] VITALS: BP 108/66
--- NOTE | 2017-01-09 08:09 | DS ---
DISCHARGE SUMMARY: DATE OF ADMISSION: 12/28/16 DATE OF DISCHARGE: 01/08/17 PRIMARY CARE PHYSICIAN: Dr. Sandor Hernández. MY ATTENDING WHILE IN THE HOSPITAL: Dr. Cyril Fernandez * (DICTATED BY CATHY RANDOLPH) CONSULTING PROVIDERS: Dr. Cecilia Boyce from Pulmonology, Dr. Gaston from Surgery, and Dr. Iain Carbajal from an Infectious Disease. PRIMARY DISCHARGE DIAGNOSES: Lung abscess, empyema. SECONDARY DIAGNOSES: Bipolar disorder type 1, controlled with medication; alcoholism in remission. STUDIES DONE WHILE IN THE HOSPITAL: Chest x-ray from 12/28/16 read as loculated right pleural effusion including right lower lung, loculated pneumothorax versus pyothorax. Chest CT read as right-sided lung abscess, loculated pleural fluid collection, nodular opacity left mid lung field, suggested followup. Electrocardiogram from 12/28/16 shows sinus tachycardia with J-point elevation in V2 and V3, left axis deviation, QTc of 513. No ST segment changes. No other abnormalities. EKG from 01/03/17 shows sinus tachycardia, QTc of 455. Chest ultrasound read as heterogeneous and a vascular collection along the medial margin of right hemithorax most likely represent loculated pleural effusion, potentially a lung abscess, abscess drainage. Ultrasound showed impression of uncomplicated ultrasound-guided aspiration of the medial right loculated pleural fluid collection, approximately 20 mL of purulent fluid was aspirated and sent to the laboratory. Chest x-ray on read as right pneumothorax postoperative changes, right chest tube in place. Chest x-ray from 01/03/17 read as right-sided chest tube with small right hydropneumothorax, right basilar atelectasis versus consolidation. Chest x-ray from 01/05/17 read as small right pleural effusion and right basilar atelectasis versus consolidation. MEDICATIONS ON DISCHARGE: 1. Seroquel XR 100 mg p.o. at bedtime. 2. Lamictal 200 mg p.o. daily. 3. Ibuprofen 600 mg p.o. q.6 hours as needed for pain. 4. Tessalon 200 mg p.o. q.8 hours as needed for cough, 42 capsules. 5. Flagyl 500 mg p.o. b.i.d., 41 capsules. 6. Oxycodone 10 mg q.12 hours as needed for pain, 20 tabs. 7. Percocet 5/325 one tab p.o. q.4 hours as needed for pain, 30 tabs. 8. Ceftriaxone 1 g q.24 hours IV. Medications discontinued at discharge: 1. Amoxicillin 500 mg p.o. q.12 hours. 2. Benzonatate 100 mg p.o. t.i.d. as needed for cough. HOSPITAL COURSE: This is a summary of the hospital course. For more details, please see the history and physical from Dr. Laura Garcia on 12/28/16. In brief, the patient is a 41-year-old male with past medical history significant for bipolar disease, alcoholism, and in remission, who presented with 1-week of shortness of breath, cough, and purulent sputum with right-sided pleuritic pain. The patient was diagnosed with right middle lobe pneumonia on CT with a loculated effusion and possible abscess. The patient was admitted for IV antibiotics and surgical consultation for drainage. The patient was started on Vapotherm and sent to the ICU on his first day due to tachypnea. The patient was started on meropenem and Flagyl. The patient was seen by Dr. Boyce, who suggested Interventional Radiology drainage of the loculated pleural effusion. Dr. Juarez was consulted and was able to drain 20 mL of fluid out of the abscess , which was sent for culture and grew Streptococcus anginosus, Eikenella corrodens, and Prevotella denticola, all of which are oral pathogens. Dr. Carbajal was consulted and the patient was started on ceftriaxone and Flagyl and Dr. Telly Paul was consulted for possible VATS surgery, who recommended he be consulted with Thoracic Surgery to have a VATS procedure and the loculations drained. The patient continued with antibiotics and was transferred out of the ICU to the surgical stay unit. Thoracic Surgery was consulted and they agreed to do a VATS procedure, which was performed on 01/02/17 without complication. Throughout this whole time, the patient had uncontrolled pain in his side in his right flank, which was pleuritic and he rated of 9/10. The patient was receiving Dilaudid IV 1 mg up to every 3 hours at the worst of his pain. The patient also complained of a persistent cough, which was causing 9/10 pain in his throat and was resistant to Tessalon Perles, dextromethorphan, and Tylenol with Codeine. The patient was slowly improving before his operation on and the patient was improved rapidly after his surgery on 01/02/17. Please see the operative report for more details. The patient had a chest tube after the VATS procedure due to intentional pneumothorax, which was removed after 2 days. The patient during his whole hospitalization was producing purulent and occasionally bloody sputum, which was more bloody after his surgery, but then began to become less purulent and less plentiful and by the time of discharge was mainly just yellow with only slight tinges of blood. The patient had no insurance on admission and throughout his hospitalization, there were attempts by social work to acquire insurance through his employer and Medicaid. The patient's lack of insurance hampered his discharge due to need for followup and outpatient IV antibiotics. The patient should get Medicaid any time, which should cover emergency hospitalization as such the patient was discharged on with a plan for 20 more days of IV ceftriaxone and/or Flagyl per Infectious Disease with a CT scan at the end to verify eradication of his disease. The patient had a PICC line placed on 01/08/17, which he will be used at the infusion clinic. The patient will also have labs, CBC, CMP and CRP to monitor weekly disease progression. 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 The patient was educated on ways to prevent and hopefully mana this disease and was instructed to follow up with his PCP outpatient. PHYSICAL EXAMINATION ON DAY OF DISCHARGE: General: The patient is a 41-year- old male, who appears stated age and sitting comfortably in the hospital bed. Vital Signs: On 01/08/17 at 1536, temperature 98.6, pulse rate 107, respiratory rate 16, oxygen saturation 97%, blood pressure 108/66. HEENT: Head : Normocephalic, atraumatic. Eyes: Sclerae anicteric. No conjunctival injection. Nose: No drainage noted. Mucosa pink. Pharynx: Nonerythematous. No drainage. Mucous membranes moist. Neck: No lymphadenopathy. No carotid bruits auscultated. Supple, nontender. Cardiac: Regular rate and rhythm. No clicks, murmurs, gallops, or rubs. Pulses 2+ in bilateral radial, dorsalis pedis, and posterior tibialis areas. Respiratory: No accessory muscle use. Normal respiratory rate. Unclear auscultation on the left side. Decreased breath sounds on the entire right side, more prominent in lower lobes with slight rhonchorous sounds heard. Abdomen: Nontender, nondistended. Bowel sounds present and normoactive in all 4 quadrants. No hepatosplenomegaly. Genitourinary: No CVA tenderness. No suprapubic tenderness. Skin: There is a bandage over the former chest tube site, which is clean, dry and intact on the patient's right flank with 2 other small incisions held together with Steri- Strips, which also have no drainage. There is a well- healed scar from the interventional radiologist's pleural drainage on his bag, which is closed with no signs of infection. Neuro: Alert and oriented. Cranial nerves II through XII grossly intact. Normal gait. The patient has decreased sensation and strength in his left hand in the fourth and fifth digits consistent with ulnar nerve palsy. Psychiatric: The patient is euthymic and cooperative with no signs of davis or depression. LABORATORY DATA: From 01/08/17, white blood cell count 10.6, RBCs 3.42, hemoglobin 10.6, hematocrit 31, platelet count 721. Sodium 132, potassium 3.9, chloride 98, carbon dioxide 27, anion gap 7, BUN 9, creatinine 0.92, glucose 124 , calcium 8.9, magnesium from 01/05/17 is 2.0. AST and ALT from 01/04/17 were 9 and 10 respectively. Alkaline phosphatase 202. Albumin 2.4. DISCHARGE PLAN: The patient will be discharged to home with followup at the infusion center tomorrow at 2 p.m. for his first dose of ceftriaxone. The patient should take Flagyl 500 mg p.o. b.i.d. with first dose starting on the day of hospitalization and continuing for 20 days after that for a total of 41 tablets at home. The patient can continue to take Tessalon and over-the- counter guaifenesin with dextromethorphan for continued cough. The patient prescribed OxyContin and Percocet for pain control in the outpatient setting for a brief time. The patient should follow up with his PCP within a week to address any needs for medications. The patient should continue taking his bipolar medications. The patient states he has a new supply at home. The patient should follow up with Dr. Iain Carbajal to monitor his progress and should have CBC, CMP and CRP drawn weekly per infusion center protocol. The patient should have weekly dressing changes and heparin blocks per infusion center protocol as well. If the patient plans to leave the area, he should make appropriate arrangements with the infusion center to ensure he completes a 28-day course of his ceftriaxone and is able to have a CT scan to show resolution of the abscess at the end. TIME SPENT: Approximately 75 minutes were spent on this discharge, half of which was spent [id number] with the patient obtaining history and physical and discussing the discharge plan. CATHY RANDOLPH [id number]/CPS #: [id number] SANTO
== END 2017-01-08 18:30 | disposition home or self-care (01) | DRG 166 ==
LOC: ED 21:07 → MED 12-28 01:51 → EEVIPCON 12-28 01:51 → ICU 12-28 21:25 → SSU 12-30 22:00
PROVIDERS: ADMIT Internal Medicine; ATTEND Hospitalist
PROC: 0W993ZZ Drainage of Right Pleural Cavity, Percutaneous Approach (ICD-10-PCS; 2016-12-29)
PROC: 0W9940Z Drainage of Right Pleural Cavity with Drainage Device, Percutaneous Endoscopic Approach (ICD-10-PCS; 2017-01-02)
PROC: 0B9K4ZZ Drainage of Right Lung, Percutaneous Endoscopic Approach (ICD-10-PCS; 2017-01-02)
PROC: 02HV33Z Insertion of Infusion Device into Superior Vena Cava, Percutaneous Approach (ICD-10-PCS; principal; 2017-01-08)
DX: J86.9 Pyothorax without fistula (principal); J85.1 Abscess of lung with pneumonia; K70.9 Alcoholic liver disease, unspecified; J90 Pleural effusion, not elsewhere classified; J93.82 Other air leak; J94.2 Hemothorax; F31.9 Bipolar disorder, unspecified; F10.21 Alcohol dependence, in remission; B95.4 Other streptococcus as the cause of diseases classified elsewhere; G56.22 Lesion of ulnar nerve, left upper limb; G57.50 Tarsal tunnel syndrome, unspecified lower limb; D47.3 Essential (hemorrhagic) thrombocythemia; R40.2412 Glasgow coma scale score 13-15, at arrival to emergency department; R05 Cough; E87.6 Hypokalemia; G47.30 Sleep apnea, unspecified; K21.9 Gastro-esophageal reflux disease without esophagitis; F41.9 Anxiety disorder, unspecified; Z82.49 Family history of ischemic heart disease and other diseases of the circulatory system; Z83.3 Family history of diabetes mellitus; Z87.891 Personal history of nicotine dependence; Z82.61 Family history of arthritis; Z82.5 Family history of asthma and other chronic lower respiratory diseases; Z83.49 Family history of other endocrine, nutritional and metabolic diseases
CPT/HCPCS: 36415; 49406; 71010; 71020; 71260; 76604; 80048; 80053; 81003; 81015; 82945; 83605; 83615; 83735; 83880; 83986; 84100; 84157; 84484; 85025; 86703; 87040; 87070; 87076; 87077; 87185; 87186; 87205; 87641; 87899; 88304; 89051; 93005; 94640; 94760; 99213; A9270-GY; C1751; G0463; J0456; J0696; J1170; J1644; J1885; J2185; J2270; J2704; J3010; J7512; Q9967